=== PATIENT | female | born 1990 | race Caucasian/White ===

== ENCOUNTER 2016-03-23 20:51 | Outpatient (CLI) | payer OTHER, MEDICAID ==
[2016-03-23 21:28] LABS: APPEARANCE,URINE SLIGHTLY-CLOUDY; BILIRUBIN,URINE NEGATIVE (NEGATIVE); GLUCOSE, URINE NEGATIVE (NEGATIVE); KETONES,URINE NEGATIVE (NEGATIVE); LEUKOCYTE ESTERASE,URINE SMALL (NEGATIVE); NITRITE,URINE NEGATIVE (NEGATIVE); PROTEIN,URINE NEGATIVE (NEGATIVE); URINE SPECIFIC GRAVITY 1.019
[2016-03-23 21:45] LABS: URINE BARBITURATES SCREEN NEGATIVE; URINE METHADONE SCREEN NEGATIVE; URINE PHENCYCLIDINE SCREEN NEGATIVE
[2016-03-23] MEDS ORDERED: HYDROXYZINE PAMOATE 50 MG CAPSULE ONE (22:41)
--- NOTE | 2016-03-24 04:48 | L&D Discharge Summary ---
OB Discharge Summary Datetime Report Generated by CPN: 03/24/2016 04:45 DISCHARGE DIAGNOSIS Diagnosis/Symptoms: False Labor Diagnoses/Symptoms Other: Not in labor, pt educated on labor signs and contractions. Pt asked question about water breaking and active labor. RN educated pt on labor process. Gestation: 39.3 Number of Babies in Womb: 1 Parity: 1 DIET/ACTIVITY/RESTRICTIONS Diet: Regular Activity: Normal Activity TEACHING/INSTRUCTIONS/REFERRALS Instructions Given To: Patient Instructions Understood: Patient Verbalized Understanding; Support Person Verbalized Understanding Referrals: None Educational Materials- Other: labor signs care notes DISCHARGE INFORMATION Discharged AMA: No Discharge Date/Time: 03/23/2016 22:49 Discharged To: Home Discharge Provider Name: Dr. Bright Accompanied By: FOB Discharge Method: Ambulatory Condition: Stable FOLLOW UP INFORMATION Follow Up With: [facility] Follow Up On: As Scheduled Follow Up Phone Number: [facility] - Comments: Dr. Suero on unit and spoke with pt about pain during early labor. GENERAL INSTR-CALL PROVIDER IF: Contractions: Regular painful contractions every 5 minutes or less for one hour. Time your contractions from the beginning of one to the beginning of the next Pressure: Pressure in your vagina or lower abdomen that may feel like the baby is pushing down Gush of Fluid/Blood: Gush of fluid or blood from your vagina (it is normal to have spotting after vaginal exam or intercourse) Decreased Movement: Your baby is not moving as much as usual- 4 movements in 1 hour after drinking and resting on side
--- NOTE | 2016-03-24 04:48 | L&D Current Admission ---
Current Admit Datetime Report Generated by CPN: 03/24/2016 04:45 ADMISSION INFORMATION Chief Complaint: Contractions (03/23/2016 21:20:VIV Lundy
--- NOTE | 2016-03-24 04:48 | Antepartum Discharge Summary ---
Antepartum DC Datetime Report Generated by CPN: 03/24/2016 04:45 DIET/ACTIVITY/RESTRICTIONS Diet: Regular (03/23/2016 22:49:Mikayla Lattibeaudeir, RN) Activity: Normal Activity (03/23/2016 22:49:Mikayla Lattibeaudeir, RN) TEACHING/INSTRUCTIONS/REFERRALS Instructions Given To: Patient (03/23/2016 22:49:Mikayla Lattibeaudeir, RN) Instructions Understood: Patient Verbalized Understanding; Support Person Verbalized Understanding (03/23/2016 22:49:Mikayla Carr RN) Referrals: None (03/23/2016 22:49:Mikayla Carr RN) Educational Materials- Other: labor signs care notes (03/23/2016 22:49:Mikayla Carr RN) DISCHARGE INFORMATION Discharged AMA: No (03/23/2016 22:49:Mikayla Carr RN) Discharge Date/Time: 03/23/2016 22:49 (03/23/2016 22:49:Mikayla Carr RN) Discharged To: Home (03/23/2016 22:49:Mikayla Carr RN) Discharge Provider Name: Dr. Bright (03/23/2016 22:49:Mikayla Carr RN) Accompanied By: ANA (03/23/2016 22:49:Mikayla Carr RN) Discharge Method: Ambulatory (03/23/2016 22:49:Mikayla Carr RN) Condition: Stable (03/23/2016 22:49:Mikayla Carr RN) FOLLOW UP INFORMATION Follow Up With: [facility] (03/23/2016 22:49:Mikayla Carr RN) Follow Up On: As Scheduled (03/23/2016 22:49:Mikayla Carr RN) Follow Up Phone Number: [facility] - (03/23/2016 22:49:Mikayla Carr RN)
--- NOTE | 2016-03-24 04:48 | L&D Flow Sheet ---
LD Flowsheet Datetime Report Generated by CPN: 03/24/2016 04:45 Datetime: 03/23/2016 22:49 Additional Nursing Comments: Pt stable, ambulatory, leaving unit accompanied by FOB (Dahiana Rossana, RN) Datetime: 03/23/2016 22:45 Teaching Instructional Method: Verbal; Written; Patient Instructed; Family/Support Person Instructed; Verbalized Understanding (Dahiana Tracy RN) Plan of Care: Plan of Care Discussed (Dahiana Tracy RN) Teaching Comments: Term labor care notes given and explained, all pt and FOB questions answered. Pt expressed frustration, states she is frustrated she is not in labor and asked about induction options. Pt will follow up as scheduled in office on Monday and discuss induction options as appropriate. Pt reassured by RN and seems to be in good spirits upon discharge. (Dahiana Tracy RN) Datetime: 03/23/2016 22:44 Medications Medication Comments: vistaril 50 mg PO (Dahiana Rossana, RN) Datetime: 03/23/2016 22:38 Uterine Activity Monitor Mode: External (Dahiana Rossana, RN) Frequency (min): 8-9 (Dahiana Rossana, RN) Quality: Mild (Dahiana Rossana, RN) Duration (sec): 90-270 (Dahiana Rossana, RN) Resting Tone (Palpate): Relaxed (Dahiana Rossana, RN) Assessment A Monitor Mode: External US (Dahiana Rossana, RN) FHR Baseline Rate : 135 (Dahiana Rossana, RN) Variability: Moderate 6-25 bpm (Dahiana Rossana, RN) Accelerations: 15X15 (Dahiana Rossana, RN) Decelerations: None (Dahiana Rossana, RN) Datetime: 03/23/2016 22:33 Communication Communication: Provider Orders Received; Report Given to @ Dr Bright (Dahiana Tracy RN) Communication Comments: Report to Dr Bright to include pt presence, hx, SVE and repeat SVE, ctx, urine results, pain. Orders received for pt d/c and vistaril 50 mg PO administration (Dahiana Tracy RN) Datetime: 03/23/2016 22:32 Vaginal Exam Dilatation (cm): 3.5 (Dahiana Rossana, RN) Effacement (%): 50 (Dahiana Rossana, RN) Station: -3 (Dahiana Rossana, RN) Exam by: K Rossana RN (Dahiana Rossana, RN) Vaginal Exam Comments: No change (Dahiana Rossana, RN) Datetime: 03/23/2016 22:15 Uterine Activity Monitor Mode: External (Dahiana Rossana, RN) Frequency (min): 6-9 (Dahiana Rossana, RN) Quality: Mild (Dahiana Rossana, RN) Duration (sec): 100-180 (Dahiana Rossana, RN) Resting Tone (Palpate): Relaxed (Dahiana Rossana, RN) Assessment A Monitor Mode: External US (Dahiana Rsosana, RN) FHR Baseline Rate : 135 (Dahiana Rossana, RN) Variability: Moderate 6-25 bpm (Dahiana Rossana, RN) Accelerations: 15X15 (Dahiana Rossana, RN) Decelerations: None (Dahiana Rossana, RN) Datetime: 03/23/2016 21:45 Uterine Activity Monitor Mode: External (Dahiana Rossana, RN) Frequency (min): 8-9 (Dahiana Rossana, RN) Quality: Mild (Dahiana Rossana, RN) Duration (sec): 70-180 (Dahiana Rossnaa, RN) Resting Tone (Palpate): Relaxed (Dahiana Rossana, RN) Assessment A Monitor Mode: External US (Dahiana Rossana, RN) FHR Baseline Rate : 135 (Dahiana Rossana, RN) Variability: Moderate 6-25 bpm (Dahiana Rossana, RN) Accelerations: 10X10 (Dahiana Rossana, RN) Decelerations: None (Dahiana Rossana, RN) Datetime: 03/23/2016 21:38 Quality: Mild/Moderate (Dahiana Rossana, RN) Monitor Interventions for FHR: Ultrasound Adjusted (Dahiana Rossana, RN) I/O Interventions: Popsicle (Dahiana Rossana, RN) Communication Communication: RN at Bedside (Dahiana Rossana, RN) Datetime: 03/23/2016 21:28 Quality: Mild (Dahiana Rossana, RN) Patient Care Patient Position/Activity: Left Lateral (Dahiana Rossana, RN) Datetime: 03/23/2016 21:20 Frequency (min): 1-3 per pt (Dahiana Tracy RN) Quality: Mild (Dahiana Tracy, RN) Pain Pain Scale: 5 (Dahiana Tracy RN) Pain Presence: Intermittent (Dahiana Tracy RN) Pain Type: Contraction (Dahiana Tracy RN) Pain Location: Abdomen; Back (Dahiana Tracy RN) Pain Goal: 2 (Dahiana Tracy RN) Pain Relief Measures: Comfort Measures (Dahiana Tracy RN) Pain Coping: Talking Through Contractions (Dahiana Tracy RN) Membrane Status: Intact (Annotations: Pt stated she has normal discharge, but doesnt think her water is broken) (Dahiana Tracy RN) Vaginal Bleeding: None (Dahiana Rossana, RN) Maternal Assessment Level of Consciousness: Fully Conscious (Dahiana Rossana, RN) DTR's/Clonus: DTRs 2+; No Clonus (Dahiana Rossana, RN) Headache: Denies (Dahiana Rossana, RN) Breath Sounds, Left: Clear and Equal (Dahiana Rossana, RN) Breath Sounds, Right: Clear and Equal (Dahiana Rossana, RN) Nausea/Vomiting: Denies (Dahiana Rossana, RN) RUQ Epigastric Pain: Denies (Dahiana Rossana, RN) Patient Care Patient Position/Activity: Right Tilt (Dahiana Rossana, RN) Comfort Measures: Family Support (Dahiana Rossana, RN) Teaching Instructional Method: Verbal; Patient Instructed; Family/Support Person Instructed; Verbalized Understanding (Dahiana Wrightsel, RN) Plan of Care: Plan of Care Discussed (Dahiana Wrightsel, RN) Unit Routine: [place] to Room; Call Gibbs (Dahiana Wrightsel, RN) LaborFlag: OB Triage (QS system process) Datetime: 03/23/2016 21:16 Contraction Comments: toco reading pt movement per patient (Dahiana Wrightsel, RN) Datetime: 03/23/2016 21:14 Vital Signs NBP Sys/Sandy/Mean (mmHg): 133 (QS system process) : 75 (QS system process) : 97 (QS system process) Pulse: 105 (QS system process) Respirations: 16 (Dahiana Rossana, RN) Temperature (F): 98.1 (Dahiana Rossana, RN) Temperature (C): 36.7 (QS system process) Temperature Route: Oral (Dahiana Rossana, RN) LaborFlag: OB Triage (QS system process) Datetime: 03/23/2016 21:11 Patient Care Patient Position/Activity: Right Tilt (Dahiana Rossana, RN) I/O Interventions: Ice Chips Given; Clear Liquids Given (Dahiana Rossana, RN) Datetime: 03/23/2016 21:10 Vaginal Exam Dilatation (cm): 3.5 (Annotations: 450/-3 per H Taras CNM in office today ) (Dahiana Tracy, RN) Effacement (%): 50 (Dahiana Rossana, RN) Station: -3 (Dahiana Rossana, RN) Exam by: K Rossana RN (Dahiana Wrightsel, RN) Figueroa's Score Dilatation (cm): 3-4 cms (Dahiana Rossana, RN) Effacement: 40-50_ effaced (Dahiana Tracy RN) Station: minus 3 (Dahiana Tracy RN) Consistency: Medium (Dahiana Tracy RN) Position: Posterior (Dahiana Tracy RN) Total Figueroa's Score: 4 (QS system process) : 0-4 = Unfavorable cervix (QS system process)
--- NOTE | 2016-03-24 04:48 | L&D Admission Assessment ---
LD ADM ASMT Datetime Report Generated by CPN: 03/24/2016 04:45 PATIENT ASSESSMENT Assessment Type: Triage (03/23/2016 21:20:Dahiana Rossana, RN) WEIGHT Weight (lb): 178 (03/23/2016 21:06:QS system process) Weight (kg): 80.9 (03/23/2016 21:06:QS system process) BMI: 31.5 (03/23/2016 21:06:QS system process) PAIN Pain Scale: 5 (03/23/2016 21:20:Dahiana Rossana, RN) Pain Presence: Intermittent (03/23/2016 21:20:Dahiana Rossana, RN) Pain Type: Contraction (03/23/2016 21:20:Dahiana Rossana, RN) Pain Location: Abdomen; Back (03/23/2016 21:20:Dahiana Rossana, RN) Pain Goal: 2 (03/23/2016 21:20:Dahiana Rossana, RN) Pain Related to Contraction: Yes (03/23/2016 21:20:Dahiana Rossana, RN) CONTRACTIONS Frequency (min): 8-9 (03/23/2016 22:38:Dahiana Rossana, RN) Frequency (min): 6-9 (03/23/2016 22:15:Dahiana Rossana, RN) Frequency (min): 8-9 (03/23/2016 21:45:Dahiana Rossana, RN) Frequency (min): 1-3 per pt (03/23/2016 21:20:Dahiana Rossana, RN) Duration (sec): 90-270 (03/23/2016 22:38:Dahiana Rossana, RN) Duration (sec): 100-180 (03/23/2016 22:15:Dahiana Rossana, RN) Duration (sec): 70-180 (03/23/2016 21:45:Dahiana Rossana, RN) Quality: Mild (03/23/2016 22:38:Dahiana Rossana, RN) Quality: Mild (03/23/2016 22:15:Dahiana Rossana, RN) Quality: Mild (03/23/2016 21:45:Dahiana Rossana, RN) Quality: Mild/Moderate (03/23/2016 21:38:Dahiana Rossana, RN) Quality: Mild (03/23/2016 21:28:Dahiana Rossana, RN) Quality: Mild (03/23/2016 21:20:Dahiana Rossana, RN) Resting Tone [place]: Relaxed (03/23/2016 22:38:Dahiana Rossana, RN) Resting Tone [place]: Relaxed (03/23/2016 22:15:Dahiana Rossana, RN) Resting Tone [place]: Relaxed (03/23/2016 21:45:Dahiana Rossana, RN) Contraction Comments: toco reading pt movement per patient (03/23/2016 21:16:Dahiana Rossana, RN) VAGINAL EXAM Dilatation (cm): 3.5 (03/23/2016 22:32:Dahiana Rossana RN) Dilatation (cm): 3.5 (Annotations: 4/50/-3 per H Taras CNM in office today ) (03/23/2016 21:10:Dahiana Tracy RN) Effacement (%): 50 (03/23/2016 22:32:Dahiana Tracy RN) Effacement (%): 50 (03/23/2016 21:10:Dahiana Tracy RN) Station: -3 (03/23/2016 22:32:Dahiana Tracy RN) Station: -3 (03/23/2016 21:10:Dahiana Tracy RN) Membranes Status: Intact (Annotations: Pt stated she has normal discharge, but doesnt think her water is broken) (03/23/2016 21:20:Dahiana Tracy RN) GOFF'S SCORE Goff's Score Dilatation (cm): 3-4 cms (03/23/2016 21:10:Dahiana Tracy RN) Goff's Score Effacement (%): 40-50_ effaced (03/23/2016 21:10:Dahiana Tracy RN) Goff's Score Station: minus 3 (03/23/2016 21:10:Dahiana Tracy RN) Goff's Score Consistency: Medium (03/23/2016 21:10:Dahiana Tracy RN) Goff's Score Position: Posterior (03/23/2016 21:10:Dahiana Tracy RN) Total Goff's Score: 4 (03/23/2016 21:10:QS system process) Goff's Score Text: 0-4 = Unfavorable cervix (03/23/2016 21:10:QS system process) NEURO Level of Consciousness: Fully Conscious (03/23/2016 21:20:Dahiana Rossana, RN) DTR's/Clonus: DTRs 2+; No Clonus (03/23/2016 21:20:Dahiana Rosasna, RN) Headache: Denies (03/23/2016 21:20:Dahiana Rossana, RN) Dizziness: No (03/23/2016 21:20:Dahiana Rossana, RN) Blurred Vision: No (03/23/2016 21:20:Dahiana Rossana, RN) Extremity Numbness/Tingling : None (03/23/2016 21:20:Dahiana Rossana, RN) Extremity Movement: Full Range of Motion (03/23/2016 21:20:Dahiana Rossana, RN) CARDIOVASCULAR Heart Rhythm: Regular (03/23/2016 21:20:Dahiana Rossana, RN) Nailbeds: [place] (03/23/2016 21:20:Dahiana Rossana, RN) Capillary Refill: Less than 3 Seconds (03/23/2016 21:20:Dahiana Tracy RN) Lower Extremities Edema: Bilateral Lower Extremities (03/23/2016 21:20:Dahiana Tracy RN) Lower Extremities Edema Degree: 2+ (03/23/2016 21:20:Dahiana Tracy RN) Upper Extremities Edema: None (03/23/2016 21:20:Dahiana Tracy RN) Upper Extremities Edema Degree: None (03/23/2016 21:20:Dahiana Tracy RN) Facial Edema: None (03/23/2016 21:20:Dahiana Tracy RN) Bossman's Sign Left Leg: Negative (03/23/2016 21:20:Dahiana Tracy RN) Bossman's Sign Right Leg: Negative (03/23/2016 21:20:Dahiana Tracy RN) DVT RISK ASSESSMENT DVT Risk Age: Age less than 41 years (03/23/2016 21:20:Dahiana Tracy RN) DVT Risk BMI: BMI<31 (03/23/2016 21:20:Dahiana Tracy RN) DVT Risk Surgery: None Applicable (03/23/2016 21:20:Dahiana Tracy RN) DVT Risk Other: Women Only- or (<1 month) (03/23/2016 21:20:Dahiana Tracy RN) DVT Risk Total: 1 (03/23/2016 21:20:QS system process) DVT Risk Text: Low Risk (<10%) No specific measures, early ambulation (03/23/2016 21:20:QS system process) RESPIRATORY Respiratory Effort: Unlabored; Regular Rhythm; Equal Expansion (03/23/2016 21:20:Dahiana Rossana, RN) Breath Sounds, Left: Clear and Equal (03/23/2016 21:20:Dahiana Rossana, RN) Breath Sounds, Right: Clear and Equal (03/23/2016 21:20:Dahiana Rossana, RN) Cough Productivity: None (03/23/2016 21:20:Dahiana Rossana, RN) GASTROINTESTINAL Nausea/Vomiting: Denies (03/23/2016 21:20:Dahiana Rossana, RN) Bowel Sounds: Normoactive; All Quadrants (03/23/2016 21:20:Dahiana Rossana, RN) RUQ Epigastric Pain: Denies (03/23/2016 21:20:Dahiana Rossana, RN) GENITOURINARY Bladder: Nondistended (03/23/2016 21:20:Dahiana Rossana, RN) Frequency of Urination: No (03/23/2016 21:20:Dahiana Rossana, RN) Urination Burning: No (03/23/2016 21:20:Dahiana Rossana, RN) CVA Tenderness: No (03/23/2016 21:20:Dahiana Rossana, RN) Vaginal Bleeding: None (03/23/2016 21:20:Dahiana Rossana, RN) Vaginal Discharge Color: N/A (03/23/2016 21:20:Dahiana Rossana, RN) INTEGUMENTARY Skin Color: Normal for Race (03/23/2016 21:20:Dahiana Rossana, RN) Skin Temperature: Warm (03/23/2016 21:20:Dahiana Rossana, RN) Skin Moisture: Dry (03/23/2016 21:20:Dahiana Rossana, RN) JOAO SKIN ASSESSMENT Joao Scale Sensory Perception: No Impairment- Responds to verbal commands. Has no sensory deficit which would limit ability to feel or voice pain or discomfort (03/23/2016 21:20:Dahiana Tracy RN) Joao Scale Moisture: Rarely Moist- Skin is usually dry. Linen only requires changing at routine intervals (03/23/2016 21:20:Dahiana Tracy RN) Joao Scale Activity: Walks Frequently- Walks outside the room at least twice a day and inside room at least every 2 hours during the day. (03/23/2016 21:20:Dahiana Tracy RN) Joao Scale Mobility: No Limitations- Makes major and frequent changes in position without assistance (03/23/2016 21:20:Dahiana Tracy RN) Joao Scale Nutrition: Excellent- Eats most of every meal. Never refuses a meal. Usually eats a total of 4 or more servings of meat and dairy products. Occasionally eats between meals. Does not require supplementation (03/23/2016 21:20:Dahiana Tracy RN) Joao Scale Friction and Shear: No Apparent Problem- Moves in bed and in chair independently and has sufficient muscle strength to lift up completely during move. Maintains good position in bed or chair at all times (03/23/2016 21:20:Dahiana Tracy RN) Joao Scale Total: 23 (03/23/2016 21:20:QS system process) Joao Scale Risk: No Risk of Pressure Ulcer Noted at this Time (03/23/2016 21:20:QS system process) SUPPORT Family Support: Significant Other supportive, at bedside frequently (03/23/2016 21:20:Dahiana Rossana, RN) Emotional State: Calm/Relaxed (03/23/2016 21:20:Dahiana Rossana, RN) SAFETY Call Gibbs Within Reach: Yes (03/23/2016 21:20:Dahiana Rossana, RN) Side Rails Up: Yes (03/23/2016 21:20:Dahiana Rossana, RN) Bed Wheels Locked: Yes (03/23/2016 21:20:Dahiana Rossana, RN) Arm Bands Present: Yes (03/23/2016 21:20:Dahiana Rossana, RN) FALL SCREEN Fall Risk History of Falling: (0) No (03/23/2016 21:20:Dahiana Rossana, RN) Fall Risk Secondary Diagnosis: (0) No (03/23/2016 21:20:Dahiana Tracy RN) Fall Risk Ambulatory Aid: (0) None/Bedrest/Wheelchair/Nurse Assist (03/23/2016 21:20:Dahiana Tracy RN) Fall Risk IV Therapy: (0) No (03/23/2016 21:20:Dahiana Tracy RN) Fall Risk Gait: (0) Normal/Bedrest/Immobile (03/23/2016 21:20:Dahiana Tracy RN) Fall Risk Mental Status: (0) Oriented to Own Ability (03/23/2016 21:20:Dahiana Tracy RN) Fall Risk Score: 0 (03/23/2016 21:20:QS system process) Fall Risk Score Definition: No Risk: No action required (03/23/2016 21:20:QS system process) RECENT TRAVEL/INFECTIOUS DISEASE Recent Exp Communicable Disease: No (03/23/2016 21:20:Dahiana Tracy RN) Cough or Fever: No (03/23/2016 21:20:Dahiana Tracy RN) Foreign Travel Past 10 Days: No (03/23/2016 21:20:Dahiana Tracy RN) Open Wounds or Sores: No (03/23/2016 21:20:Dahiana Tracy RN) Prior Antibiotic Resistance Tx: No (03/23/2016 21:20:Dahiana Tracy RN) Cultures Obtained: Not Applicable (03/23/2016 21:20:Dahiana Tracy RN) Isolation Initiated: No (03/23/2016 21:20:Dahiana Tracy RN) Pt/Family Education: Not Applicable (03/23/2016 21:20:Dahiana Tracy RN) BABY A FHR Baseline Rate (bpm) Baby A: 135 (03/23/2016 22:38:Dahiana Tracy RN) FHR Baseline Rate (bpm) Baby A: 135 (03/23/2016 22:15:Dahiana Tracy RN) FHR Baseline Rate (bpm) Baby A: 135 (03/23/2016 21:45:Dahiana Tracy RN) Variability Baby A: Moderate 6-25 bpm (03/23/2016 22:38:Dahiana Tracy RN) Variability Baby A: Moderate 6-25 bpm (03/23/2016 22:15:Dahiana Tracy RN) Variability Baby A: Moderate 6-25 bpm (03/23/2016 21:45:Dahiana Tracy RN) Accelerations Baby A: 15X15 (03/23/2016 22:38:Dahiana Tracy RN) Accelerations Baby A: 15X15 (03/23/2016 22:15:Dahiana Tracy RN) Accelerations Baby A: 10X10 (03/23/2016 21:45:Dahiana Tracy RN) Decelerations Baby A: None (03/23/2016 22:38:Dahiana Tracy RN) Decelerations Baby A: None (03/23/2016 22:15:Dahiana Tracy RN) Decelerations Baby A: None (03/23/2016 21:45:Dahiana Tracy RN)
--- NOTE | 2016-03-24 04:48 | L&D General Admission ---
General Admit Datetime Report Generated by CPN: 03/24/2016 04:45 INFORMATION Baby, Number in Womb: 1 (03/23/2016 22:49:Mikayla Lattibeaudeir, RN) CARE Height (in): 63 (03/23/2016 21:06:QS system process) ALLERGIES Medication Allergies: No Known Allergies (03/23/2016) (03/23/2016 21:06:QS system process)
--- NOTE | 2016-03-28 10:09 | Non Stress Test Report ---
Non Stress Test Datetime Report Generated by CPN: 03/28/2016 10:09 Test Number: 5 Indication for Study: Ordered by Provider Indication for Study (NST) Other: LC Monitor Explained: Monitor Explained; Test Explained; Patient Verbalized Understanding Time on Monitor: 03/23/2016 21:11 Time off Monitor: 03/23/2016 22:38 NST Interventions: PO Hydration; Reposition Patient Physician Notified NST: Dr. Bright Movement : Present Contraction Frequency : 7-10 FHR Baseline : 135 Accelerations : 15X15 Decelerations : None Variability : Moderate 6-25bpm NST Review: Meets Criteria for Reactive NST NST Review and Verified By : Lalo Carr RN NST Results: Reactive NST Comments: see flowsheet for urine results and VS Report Trigger: Send Report
== END 2016-03-23 22:49 | disposition home or self-care (01) ==
LOC: LC 20:51
PROVIDERS: ATTEND Obstetrics & Gynecology
PROC: 4A1HXCZ Monitoring of Products of Conception, Cardiac Rate, External Approach (ICD-10-PCS; principal; 2016-03-23)
DX: O47.1 False labor at or after 37 completed weeks of gestation (principal); Z3A.39 39 weeks gestation of pregnancy
CPT/HCPCS: 59025; 81005; G0479; 80307

== ENCOUNTER 2016-03-25 05:44 | Inpatient (IN) | payer OTHER, MEDICAID ==
--- NOTE | 2016-03-25 05:47 | Non Stress Test Report ---
Non Stress Test Datetime Report Generated by CPN: 03/25/2016 05:47 DEMOGRAPHIC Test Number: 5 Test Number: 2 EGA NST: 39.3 EGA NST: 38.0 EGA NST: 37.6 INDICATION Indication for Study: Ordered by Provider Indication for Study: Ordered by Provider Indication for Study: Ordered by Provider Indication for Study (NST) Other: LC Indication for Study (NST) Other: LC VITAL SIGNS Temperature - NST: 98.9 Temperature - NST: 98.9 Pulse - NST: 110 Pulse - NST: 110 RESP - NST: 16 RESP - NST: 16 NBPSYS NST: 125 NBPSYS NST: 125 NBPDIA NST: 87 NBPDIA NST: 78 MONITORING Monitor Explained: Monitor Explained; Test Explained; Patient Verbalized Understanding Monitor Explained: Monitor Explained; Test Explained; Patient Verbalized Understanding Monitor Explained: Monitor Explained; Test Explained; Patient Verbalized Understanding Time on Monitor: 03/23/2016 21:11 Time on Monitor: 03/13/2016 00:33 Time on Monitor: 03/12/2016 21:52 Time off Monitor: 03/23/2016 22:38 Time off Monitor: 03/13/2016 00:55 Time off Monitor: 03/12/2016 22:31 NST Duration: 87 NST Duration: 22 NST Duration: 39 NST INTERVENTIONS NST Interventions: PO Hydration; Reposition Patient NST Interventions: PO Hydration; Reposition Patient NST Interventions: PO Hydration; Reposition Patient Physician Notified NST: Dr. Bright Physician Notified NST: Physician Notified NST: Suero BABY A: [id number] BABY A Movement : Present Movement : Present Movement : Present Contraction Frequency : 7-10 Contraction Frequency : 8-10 Contraction Frequency : 8-10 FHR Baseline : 135 FHR Baseline : 125 FHR Baseline : 140 Accelerations : 15X15 Accelerations : 15X15 Accelerations : 15X15 Decelerations : None Decelerations : None Decelerations : None Variability : Moderate 6-25bpm Variability : Moderate 6-25bpm Variability : Moderate 6-25bpm NST Review: Meets Criteria for Reactive NST NST Review: Meets Criteria for Reactive NST NST Review: Meets Criteria for Reactive NST NST Review and Verified By : Lalo Carr RN NST Review and Verified By : Pauly Galdamez RN NST Review and Verified By : Pauly Galdamez RN NST Results: Reactive NST Results: Reactive NST Results: Reactive NST COMMENTS NST Comments: see flowsheet for urine results and VS NST REPORT Report Trigger: Send Report
[2016-03-25] MEDS ORDERED: RINGERS SOLUTION,LACTATED 1,000 ML IV PRN ×2 (05:53→06:36)
[2016-03-25 06:07] LABS: APPEARANCE,URINE TURBID; BILIRUBIN,URINE NEGATIVE (NEGATIVE); GLUCOSE, URINE 50 mg/dL (NEGATIVE); KETONES,URINE NEGATIVE (NEGATIVE); LEUKOCYTE ESTERASE,URINE TRACE (NEGATIVE); NITRITE,URINE NEGATIVE (NEGATIVE); PROTEIN,URINE 100 mg/dL (NEGATIVE); URINE SPECIFIC GRAVITY 1.005; UROBILINOGEN,URINE NEGATIVE mg/dL (<2.0)
--- NOTE | 2016-03-25 06:22 | L&D Current Admission ---
Current Admit Datetime Report Generated by CPN: 03/25/2016 06:00 ADMISSION INFORMATION Reason for Admission: Rupture of Membranes (03/25/2016 06:15:Dahiana Tracy RN) Chief Complaint: Suspected Rupture of Membranes (03/25/2016 06:15:Dahiana Tracy RN) Medications During : Ferrous Sulfate (Iron); Vitamin (03/25/2016 06:15:Dahiana Tracy RN) Method of Arrival: Wheelchair (03/25/2016 06:15:Dahiana Tracy RN) Reason for Induction: Not Applicable (03/25/2016 06:15:Dahiana Tracy RN) Records Available: Yes (03/25/2016 06:15:Dahiana Tracy RN) General Admission Information: Reviewed; Updated; Confirmed (03/25/2016 06:15:Dahiana Tracy RN) General Admission Reviewed By: Prakash Tracy RN (03/25/2016 06:15:Dahiana Tracy RN) BELONGINGS/ADVANCED DIRECTIVES Other Belongings: see [facility] belongings form (03/25/2016 06:15:Dahiana Tracy RN) Advance Direct for Healthcare: No, but Requests Information (03/25/2016 06:15:Dahiana Tracy RN) Durable Power of Spice Blender: No (03/25/2016 06:15:Dahiana Tracy RN) Living Will: No (03/25/2016 06:15:Dahiana Tracy RN) Organ Donor: Yes (03/25/2016 06:15:Dahiana Tracy RN) Pt Rights Information Given: Yes (03/25/2016 06:15:Dahiana Tracy RN) Pt Understands Pt Rights: No (03/25/2016 06:15:Dahiana Tracy RN) LEARNING ASSESSMENT Knowledge Level: Understands L_D Process; Understands Diagnosis (03/25/2016 06:15:Dahiana Tracy RN) Barriers to Learning: Emotional State; Pain (03/25/2016 06:15:Dahiana Tracy RN) Learning Readiness: Motivated (03/25/2016 06:15:Dahiana Tracy RN) Learns Best By: 1 to 1 Instruction (03/25/2016 06:15:Dahiana Tracy RN) Learning Needs: Labor and Delivery Process; Pain Management; Symptoms to Report; Treatment Plan; Medication; Diagnosis; Equipment (03/25/2016 06:15:Dahiana Tracy RN) DOMESTIC VIOLANCE SCREENING Dom Viol Threatened/Hurt: No (03/25/2016 06:15:Dahiana Tracy RN) Hx of Abuse/Neglect past 2yrs: No (03/25/2016 06:15:Dahiana Tracy RN) Feel Unsafe Going Home: No (03/25/2016 06:15:Dahiana Tracy RN) Addt'l Observ Indicating Abuse: No (03/25/2016 06:15:Dahiana Tracy RN) Reason Unable to Complete Screen: N/A, Screen Completed (03/25/2016 06:15:Dahiana Tracy RN) Considered Personal Harm/Suicide: No (03/25/2016 06:15:Dahiana Tracy RN) NUTRITIONAL/FUNCTIONAL SCREENING Problem with Appetite >5 Days: No (03/25/2016 06:15:Dahiana Tracy RN) Chew/Swallow Difficulties: No (03/25/2016 06:15:Dahiana Tracy RN) Inappropriate Wt Gain/Loss: No (03/25/2016 06:15:Dahiana Tracy RN) Presence Skin Breakdown/Ulcer: No (03/25/2016 06:15:Dahiana Tracy RN) Special Diet: No (03/25/2016 06:15:Dahiana Tracy RN) Pt Requests Membership Administrator Visit: No (03/25/2016 06:15:Dahiana Tracy RN) Hx of Any of the Following?: N/A (03/25/2016 06:15:Dahiana Tracy RN) New Diagnosis of: N/A (03/25/2016 06:15:Dahiana Tracy RN) Requires Assist w/Ambulation: No (03/25/2016 06:15:Dahiana Tracy RN) Uses Assist Device to Ambulate: No (03/25/2016 06:15:Dahiana Tracy RN) Pt Requires Help w/ADL's: No (03/25/2016 06:15:Dahiana Tracy RN)
--- NOTE | 2016-03-25 06:22 | L&D General Admission ---
General Admit Datetime Report Generated by CPN: 03/25/2016 06:00 INFORMATION Patient Age: 25 (03/09/2016 22:02:QS system process) EDC: 03/27/2016 00:00 (03/09/2016 22:04:Mikayla Carr RN) : 2 (03/09/2016 22:07:Rosamaria Coffman RN) Para: 1 (03/11/2016 14:34:Elida Gonzalez RN) Term: 1 (03/09/2016 22:04:Mikayla Carr RN) : 0 (03/09/2016 22:04:Mikayla Carr RN) Spontaneous Abortions: 0 (03/09/2016 22:04:Mikayla Carr RN) Induced Abortions: 0 (03/09/2016 22:04:Mikayla Carr RN) Livin (03/09/2016 22:04:Mikayla Carr RN) Cesareans: 0 (03/09/2016 22:04:Mikayla Carr RN) VBACs: 0 (03/09/2016 22:04:Mikayla Carr RN) Ectopic: 0 (03/09/2016 22:04:Mikayla Carr RN) Multiple Births: 0 (03/09/2016 22:04:Mikayla Carr RN) Baby, Number in Womb: 1 (03/23/2016 22:49:Mikayla Carr RN) CARE Primary Managed Care Nurse: [facility] (03/09/2016 22:07:Rosamaria Coffman RN) Adequate Care: Yes (03/09/2016 22:07:Rosamaria Coffman RN) Height (in): 75 (03/25/2016 05:58:QS system process) ALLERGIES Medication Allergy: No (03/09/2016 22:07:Rosamaria Coffman RN) Medication Allergies: No Known Allergies (03/23/2016) (03/23/2016 21:06:QS system process) Latex Allergy: No Latex Allergies (03/09/2016 22:07:Rosamaria Coffman RN) Food Allergies: NA (03/09/2016 22:07:Rosamaria Coffman RN) Environmental Allergies: NA (03/09/2016 22:07:Rosamaria Coffman RN) COMMUNICATION Primary Language: Swazi (03/09/2016 22:07:Rosamaria Coffman RN) Medical Tx Preferred Language: Swazi (03/09/2016 22:04:Mikayla Carr RN) Communication Barrier(s): None (03/09/2016 22:04:Mikayla Carr RN) DEMOGRAPHICS Address: [address] [place] [id number] (03/09/2016 22:02:QS system process) Zipcode: [address] (03/09/2016 22:02:QS system process) Home (03/09/2016 22:02:QS system process) SSN: [id number] (03/09/2016 22:02:QS system process) Next of Kin Name: PABLITO BURNHAM (03/11/2016 10:06:QS system process) Next of Kin (03/11/2016 10:06:QS system process) Next of Kin Relationship: SPO (03/11/2016 10:06:QS system process) Date of : 1990 (03/09/2016 22:02:QS system process) Marital Status: (03/09/2016 22:02:QS system process) Sex: Female (03/09/2016 22:02:QS system process) Race: (03/09/2016 22:02:QS system process) Ethnicity: Non- or (03/09/2016 22:02:QS system process) Mosque: None (03/09/2016 22:02:QS system process) DRUG AND ALCOHOL USE Alcohol: No (03/09/2016 22:07:Rosamaria Coffman RN) Cigarettes: Never Smoker. [id number] (03/09/2016 22:07:Rosamaria Coffman RN) Marijuana: No (03/09/2016 22:07:Rosamaria Coffman RN) Cocaine: No (03/09/2016 22:07:Rosamaria Coffman RN) Other Illicit Drugs: No (03/09/2016 22:07:Rosamaria Coffman RN) VACCINE HISTORY Influenza Vaccine: Yes (03/09/2016 22:07:Elida Gonzalez RN) Pneumococcal Vaccine: No (03/09/2016 22:07:Rosamaria Coffman RN) Tetanus Vaccine: No (03/09/2016 22:07:Rosamaria Coffman RN) Tdap Vaccine: No (03/09/2016 22:07:Rosamaria Coffman RN) Hepatitis B Vaccine: No (03/09/2016 22:07:Rosamaria Coffman RN) Sorting Supervisor: [facility] (03/09/2016 22:07:Rosamaria Coffman RN) Feeding Preference: Breast (03/09/2016 22:07:Rosamaria Coffman RN) Benefit of Breast Feed Discussed: Yes (03/09/2016 22:07:Rosamaria Coffman RN) Circumcision: N/A (03/09/2016 22:07:Rosamaria Coffman RN) Classes Attended: No (03/09/2016 22:07:Rosamaria Coffman RN) Tubal Ligation: No (03/09/2016 22:07:Rosamaria Coffman RN) Tubal Authorization Signed: N/A (03/09/2016 22:07:Rosamaria Coffman RN) Consent: N/A (03/09/2016 22:07:Rosamaria Coffman RN) Consent Signed: N/A (03/09/2016 22:07:Rosamaria Coffman RN) Pain Management Plans: Natural (03/09/2016 22:07:Rosamaria Coffman RN) Plans for Labor and Delivery: Plan (03/09/2016 22:07:Rosamaria Coffman RN) Support Person: Pablito Burnham (03/09/2016 22:07:Rosamaria Coffman RN) Support Person Relationship: (03/09/2016 22:07:Rosamaria Coffman RN) Cultural/Spritual Practice: No (03/09/2016 22:07:Rosamaria Coffman RN) Spir/Cult Dietary Needs: No (03/09/2016 22:07:Rosamaria Coffman RN) LIVING SITUATION/DISCHARGE PLAN Living Arrangements: House (03/09/2016 22:07:Rosamaria Coffman RN) Adequate Access to:: Electric; Heat; Refrigeration; Plumbing/Running water; Phone; Transportation (03/09/2016 22:07:Rosamaria Coffman RN) WIC Program: Yes (03/09/2016 22:07:Rosamaria Coffman RN) Discharge Archeologist Person: Pablito Burnham (03/09/2016 22:07:Rosamaria Coffamn RN) Person to Help after Discharge: Pablito Burnham (03/09/2016 22:07:Rosamaria Coffman RN) Currently Using Commun Resources: Yes (03/09/2016 22:07:Rosamaria Coffman RN) Specify Current Resource Used: Medicaid (03/09/2016 22:07:Rosamaria Coffman RN) Outside Agency/Social Media Assistant: Yes (03/09/2016 22:07:Rosamaria Coffman RN) Car Seat for Discharge: Yes (03/09/2016 22:07:Rosamaria Coffman RN) Adoption Requested: No (03/09/2016 22:07:Rosamaria Coffman RN) Pt Contact w/ Post : N/A (03/09/2016 22:07:Rosamaria Coffman RN) LABS Blood Type: B Positive (03/09/2016 22:07:Elida Gonzalez RN) Antibody Screen: neg (03/09/2016 22:07:Elida Gonzalez RN) Group Beta Strep: neg (03/09/2016 22:07:Elida Gonzalez RN) Gonorrhea: Negative (03/09/2016 22:07:Dahiana Tracy RN) Chlamydia: Negative (03/09/2016 22:07:Dahiana Tracy RN) RPR/VDRL: Nonreactive (03/09/2016 22:07:Elida Gonzalez RN) HIV Exposure Test: Negative (03/09/2016 22:07:Elida Gonzalez RN) HIV Results: non-reactive (03/09/2016 22:07:Cele Gardner RN) Hepatitis B: Negative (03/09/2016 22:07:Cele Gardner RN) Rubella: Immune (Annotations: Data stored by N on behalf of user) (03/09/2016 22:07:Cele Gardner RN) Varicella: Non Susceptible (03/09/2016 22:07:Cele Gardner RN) OB/PREVIOUS HISTORY Previous Procedures: Ultrasound (03/09/2016 22:07:Rosamaria Coffman RN) Current Procedures: Ultrasound; NST (03/09/2016 22:07:Rosamaria Coffman RN) History of Previous : No (03/09/2016 22:07:Rosamaria Coffman RN) History of Gestational Diabetes: No (03/09/2016 22:07:Rosamaria Coffman RN) History of PIH: No (03/09/2016 22:07:Rosamaria Coffman RN) History of Incompetent Cervix: No (03/09/2016 22:07:Rosamaria Coffman RN) History of Placenta Previa/Abrup: No (03/09/2016 22:07:Rosamaria Coffman RN) History of Macrosomia: No (03/09/2016 22:07:Rosamaria Coffman RN) History of IUGR: No (03/09/2016 22:07:Rosamaria Coffman RN) History of Hemorrhage: No (03/09/2016 22:07:Rosamaria Coffman RN) History of Loss/Stillborn: No (03/09/2016 22:07:Rosamaria Coffman RN) History of : No (03/09/2016 22:07:Rosamaria Coffman RN) History of D (Rh) Sensitization: No (03/09/2016 22:07:Rosamaria Coffman RN) History Recurrent Loss/Stillborn: No (03/09/2016 22:07:Rosamaria Coffman RN) History Depression/PP Depression: No (03/09/2016 22:07:Rosamaria Coffman RN) History of Uterine Anomaly/NINA: No (03/09/2016 22:07:Rosamaria Coffman RN) History of Infertility: No (03/09/2016 22:07:Rosamaria Coffman RN) History of ART Treatment: No (03/09/2016 22:07:Rosamaria Coffman RN) History of NINA: No (03/09/2016 22:07:Rosamaria Coffman RN) Comments Obstetrical History: G1: 2008 male 7 lb 14 oz G2: current (03/09/2016 22:07:Dahiana Tracy RN) MEDICAL HISTORY Med Hx Diabetes: No (03/09/2016 22:07:Rosamaria Coffman RN) Med Hx Hypertension: No (03/09/2016 22:07:Rosamaria Coffman RN) Med Hx Heart Disease: No (03/09/2016 22:07:Rosamaria Coffman RN) Med Hx Autoimmune Disorder: No (03/09/2016 22:07:Rosamaria Coffman RN) Med Hx Kidney Disease/UTI: No (03/09/2016 22:07:Rosamaria Coffman RN) Med Hx Neurologic/Epilepsy: No (03/09/2016 22:07:Rosamaria Coffman RN) Med Hx Psychiatric Disorders: No (03/09/2016 22:07:Rosamaria Coffman RN) Med Hx Hepatitis/Liver Disease: No (03/09/2016 22:07:Rosamaria Coffman RN) Med Hx Varicosities/Phlebitis: No (03/09/2016 22:07:Rosamraia Coffman RN) Med Hx Thyroid Dysfunction: No (03/09/2016 22:07:Rosamaria Coffman RN) Med Hx Trauma/Violence: No (03/09/2016 22:07:Rosamaria Coffman RN) Med Hx Blood Transfusion: No (03/09/2016 22:07:Rosamaria Coffman RN) Med Hx Pulmonary (Asthma,TB): No (03/09/2016 22:07:Rosamaria Coffman RN) Med Hx Breast: No (03/09/2016 22:07:Rosamaria Coffman RN) Med Hx FLIGHT KITCHEN MANAGER Surgery: No (03/09/2016 22:07:Rosamaria Coffman RN) Med Hx Hospitalization/Surgery: Yes (03/09/2016 22:07:Dahiana Tracy RN) Med Hx Anesthetic Complications: No (03/09/2016 22:07:Rosamaria Coffman RN) Med Hx Abnormal Pap Smear: Yes (03/09/2016 22:07:Dahiana Tracy RN) Other Medical Diseases: No (03/09/2016 22:07:Rosamaria Coffman RN) Med Hx Significant Family Hx: No (03/09/2016 22:07:Rosamaria Coffman RN) Details of Med/Surg Hx: hospitalization childbirth, hx abn pap? (03/09/2016 22:07:Dahiana Tracy RN) INFECTIOUS HISTORY Inf Hx Gonorrhea: No (03/09/2016 22:07:Rosamaria Coffman RN) Inf Hx Chlamydia: Yes (03/09/2016 22:07:Rosamaria Coffman RN) Inf Hx Syphilis: No (03/09/2016 22:07:Rosamaria Coffman RN) Inf Hx HIV/AIDS: No (03/09/2016 22:07:Rosamaria Coffman RN) Inf Hx Human Papilloma Virus: No (03/09/2016 22:07:Rosamaria Coffman RN) Inf Hx Pt/Partner Genital Herpes: No (03/09/2016 22:07:Rosamaria Coffman RN) Inf Hx Tuberculosis/Exposure: No (03/09/2016 22:07:Rosamaria Coffman RN) Inf Hx Hepatitis B,C: No (03/09/2016 22:07:Rosamaria Coffman RN) Inf Hx Rash or Viral Illness: No (03/09/2016 22:07:Rosamaria Coffman RN) Details of Infectious Hx: 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) and negative GAURI BV in G2 (03/09/2016 22:07:Dahiana Tracy RN) GENETIC HISTORY Gen Hx Age >=35 at SHARON: No (03/09/2016 22:07:Rosamaria Coffman RN) Gen Hx Thalassemia: No (03/09/2016 22:07:Rosamaria Coffman RN) Gen Hx Congenital Heart Defect: No (03/09/2016 22:07:Rosamaria Coffman RN) Gen Hx Neural Tube Defect: No (03/09/2016 22:07:Rosamaria Coffman RN) Gen Hx Down's Syndrome: No (03/09/2016 22:07:Rosamaria Coffman RN) Gen Hx Yobani-Sachs: No (03/09/2016 22:07:Rosamaria Coffman RN) Gen Hx Ghulam: No (03/09/2016 22:07:Rosamaria Coffman RN) Gen Hx Familial Dysautonomia: No (03/09/2016 22:07:Rosamaria Coffman RN) Gen Hx Sickle Cell Disease/Trait: No (03/09/2016 22:07:Rosamaria Coffman RN) Gen Hx Hemophilia/Blood Disorder: No (03/09/2016 22:07:Rosamaria Coffman RN) Gen Hx Muscular Dystrophy: No (03/09/2016 22:07:Rosamaria Coffman RN) Gen Hx Cystic Fibrosis: No (03/09/2016 22:07:Rosamaria Coffman RN) Gen Hx Huntingtons Chorea: No (03/09/2016 22:07:Rosamaria Coffman RN) Gen Hx Mental Retardation/Autism: No (03/09/2016 22:07:Rosamaria Coffman RN) Gen Hx Tested for Fragile X: No (03/09/2016 22:07:Rosamaria Coffman RN) Gen Hx Other Inher/Chromosomal: No (03/09/2016 22:07:Rosamaria oCffman RN) Gen Hx Maternal Metabolic DO: No (03/09/2016 22:07:Rosamaria Coffman RN) Gen Hx Pt Father or FOB Defect: No (03/09/2016 22:07:Rosamaria Coffman RN) Gen Hx Other Genetic History: No (03/09/2016 22:07:Rosamaria Coffman RN) Gen Hx Drugs/Meds since LMP: Yes (03/09/2016 22:07:Dahiana Tracy RN) Gen Hx Medications: , iron, abx for chlam treatment (03/09/2016 22:07:Dahiana Tracy RN)
[2016-03-25 06:36] LABS: HEMATOCRIT 33.4 % (36.0-47.0); HEMOGLOBIN 11.2 g/dL (12.0-15.5); HGB HCT DIFFERENCE 0.2; MEAN CORPUSCULAR HEMOGLOBIN 26.6 pg (27.0-33.4); MEAN CORPUSCULAR HGB CONC 33.5 g/dL (32.0-36.0); MEAN CORPUSCULAR VOLUME 79 fl (80-97); RED BLOOD COUNT 4.21 10^6/uL (3.72-5.28); RED CELL DISTRIBUTION WIDTH 18.2 % (11.5-14.0); WHITE BLOOD COUNT 11.3 10^3/uL (4.0-10.5)
[2016-03-25] MEDS ORDERED: PENICILLIN G-K 5 MILLION UNIT VIAL IV ONE ×2 (06:38)
[2016-03-25 06:39] LABS: URINE BARBITURATES SCREEN NEGATIVE; URINE METHADONE SCREEN NEGATIVE; URINE PHENCYCLIDINE SCREEN NEGATIVE
[2016-03-25] MEDS ORDERED: BETAMET ACET/BETAMET NA INJ 6 MG/1 ML IM SCH (06:45)
[2016-03-25] MEDS ORDERED: BETAMET ACET/BETAMET NA INJ 6 MG/1 ML IM ONE (07:00)
[2016-03-25] MEDS ORDERED: DEXTROSE 5%-LACTATED RINGERS 250 ML IV ONE (07:00)
[2016-03-25 07:05] LABS: BAND NEUTROPHILS % (MANUAL) 3 % (3-5); BASOPHILS % (MANUAL) 1 % (0-2); EOSINOPHILS % (MANUAL) 2 % (0-6); LYMPHOCYTES % (MANUAL) 21 % (13-45); TOTAL CELLS COUNTED 100
[2016-03-25 07:06] LABS: ANISOCYTOSIS 1+; POLYCHROMASIA SLIGHT; TOXIC GRANULATION 1+
--- NOTE | 2016-03-25 08:01 | L&D Flow Sheet ---
LD Flowsheet Datetime Report Generated by CPN: 03/25/2016 08:00 Datetime: 03/25/2016 07:54 Patient Position/Activity: Birthing Ball (Marita Magaña, RN) Datetime: 03/25/2016 07:37 Monitor Interventions for UA: Lane Adjusted (Marita Magaña, RN) Datetime: 03/25/2016 07:36 Patient Position/Activity: Left Tilt (Marita Magaña RN) Datetime: 03/25/2016 07:30 Monitor Mode: External (Marita Magaña RN) Frequency (min): 3-8 (Marita Magaña RN) Quality: Moderate (Marita Magaña RN) Duration (sec): 50-120 (Marita Magaña RN) Duration Criteria: Less than Two 120 Second Contractions (Marita Magaña RN) Pattern: Normal: <= 5 Contractions in 10 Minutes (Marita Magaña RN) Resting Tone (Palpate): Relaxed (Marita Magaña RN) Monitor Mode: External US (Marita Magaña RN) FHR Baseline Rate : 135 (Marita Magaña RN) Variability: Moderate 6-25 bpm (Marita Magaña RN) Accelerations: None (Marita Magaña RN) Decelerations: None (Marita Magaña RN) Pain Scale: 4 (Marita Magaña RN) Pain Presence: Intermittent (Marita Magaña RN) Pain Type: Contraction (Marita Magaña RN) Pain Location: Abdomen (Marita Magaña RN) Pain Relief Measures: Comfort Measures (Marita Magaña RN) Pain Coping: Talking Through Contractions (Marita Magaña RN) LaborFlag: Labor (QS system process) Datetime: 03/25/2016 07:28 Level of Consciousness: Fully Conscious (Marita Magaña, RN) DTR's/Clonus: DTRs 2+; No Clonus (Marita Magaña, RN) Headache: Denies (Marita Magaña, RN) Breath Sounds, Left: Clear and Equal (Marita Magaña, RN) Breath Sounds, Right: Clear and Equal (Marita Magaña, RN) Nausea/Vomiting: Denies (Marita Magaña, RN) RUQ Epigastric Pain: Denies (Marita Magaña, RN) Datetime: 03/25/2016 07:21 I/O Interventions: Up to BR (Marita Magaña, RN) Datetime: 03/25/2016 07:15 Communication Comments: bedside report to A Magaña RN, care relinquished (Dahiana Rossana, RN) Datetime: 03/25/2016 07:02 Comments: excessive audible and visual movement (Dahiana Rossana, RN) Datetime: 03/25/2016 07:01 IV/Blood Work: IV Bolus Started (Dahiana Rossana, RN) Patient Care Comments: d5LR bolus started per orders from Dr Pio (Dahiana Rossana, RN) Datetime: 03/25/2016 07:00 Monitor Mode: External (Dahiana Rossana, RN) Frequency (min): 2-6 (Dahiana Rossana, RN) Quality: Moderate to Strong (Dahiana Rossana, RN) Duration (sec): 60-180 (Dahiana Rossana, RN) Resting Tone (Palpate): Relaxed (Dahiana Rossana, RN) Monitor Mode: External US (Dahiana Rossana, RN) FHR Baseline Rate : 135 (Dahiana Rossana, RN) Variability: Moderate 6-25 bpm (Dahiana Rossana, RN) Accelerations: None (Dahiana Rossana, RN) Decelerations: None (Dahiana Rossana, RN) Datetime: 03/25/2016 06:38 I/O Interventions: Popsicle (Dahiana Rossana, RN) Datetime: 03/25/2016 06:37 Comments: acoustic stimulation (Dahiana Rossana, RN) IV/Blood Work: IV Bolus Given ml @ 500 (Dahiana Rossana, RN) Patient Position/Activity: Right Lateral (Dahiana Rossana, RN) Provider Reviewed Strip: Yes (Dahiana Rossana, RN) Communication: RN Reviewed Strip (Dahiana Rossana, RN) Datetime: 03/25/2016 06:30 Monitor Mode: External (Dahiana Rossana, RN) Frequency (min): 4-7 (Dahiana Rossana, RN) Quality: Moderate to Strong (Dahiana Rossana, RN) Duration (sec): 60-180 (Dahiana Rossana, RN) Resting Tone (Palpate): Relaxed (Dahiana Rossana, RN) Monitor Mode: External US (Dahiana Rossana, RN) FHR Baseline Rate : 135 (Dahiana Rossana, RN) Variability: Moderate 6-25 bpm (Dahiana Rossana, RN) Accelerations: None (Dahiana Rossana, RN) Decelerations: None (Dahiana Rossana, RN) Datetime: 03/25/2016 06:22 IV/Blood Work: IV Started; IV Bolus Started (Dahiana Tracy RN) Datetime: 03/25/2016 06:15 Frequency (min): q 5 minutes per pt (Dahiana Tracy RN) Quality: Moderate to Strong (Dahiana Tracy RN) Membrane Status: Ruptured (Dahiana Tracy RN) Membranes Ruptured Date/Time: 03/25/2016 05:25 (Dahiana Tracy RN) Membranes Rupture Method: Spontaneous (Dahiana Tracy RN) Amniotic Fluid Color: Clear (Dahiana Tracy RN) Amniotic Fluid Amount: Large (Dahiana Tracy RN) Amniotic Fluid Odor: Normal (Dahiana Tracy RN) Vaginal Bleeding: None (Dahiana Tracy RN) Level of Consciousness: Fully Conscious (Dahiana Tracy RN) DTR's/Clonus: DTRs 2+; No Clonus (Dahiana Tracy RN) Headache: Denies (Dahiana Tracy RN) Breath Sounds, Left: Clear and Equal (Dahiana Tracy RN) Breath Sounds, Right: Clear and Equal (Dahiana Tracy RN) Nausea/Vomiting: Denies (Dahiana Tracy RN) RUQ Epigastric Pain: Denies (Dahiana Tracy RN) Procedures: Labs Drawn (Dahiana Tracy RN) Patient Position/Activity: Left Lateral (Dahiana Tracy RN) Comfort Measures: Breathing/Relaxation; Family Support (Dahiana Tracy RN) Hygiene: Underpad Changed; Peripad Changed (Dahiana Tracy RN) Instructional Method: Verbal; Patient Instructed; Family/Support Person Instructed; Verbalized Understanding (Dahiana Tracy RN) Plan of Care: Plan of Care Discussed; Vaginal Delivery (Dahiana Tracy RN) Datetime: 03/25/2016 06:09 NBP Sys/Sandy/Mean (mmHg): 121 (QS system process) : 71 (QS system process) : 89 (QS system process) Pulse: 85 (QS system process) Respirations: 15 (Dahiana Tracy RN) Temperature (F): 98.3 (Dahiana Tracy RN) Temperature (C): 36.8 (QS system process) Temperature Route: Oral (Dahiana Tracy RN) LaborFlag: Labor (QS system process) Datetime: 03/25/2016 06:05 Procedures: Consents Signed (Dahiana Tracy RN) Datetime: 03/25/2016 06:02 Stage of : Labor (Dahiana Tracy, RN) Datetime: 03/25/2016 06:00 Dilatation (cm): 5.0 (Dahiana Tracy RN) Effacement (%): 60 (Dahiana Tracy RN) Station: -2 (Dahiana Tracy RN) Exam by: Prakash Tracy RN (Dahiana Tracy RN) Membrane Status: Ruptured (Dahiana Tracy RN) Membranes Ruptured Date/Time: 03/25/2016 05:25 (Dahiana Tracy RN) Membranes Rupture Method: Spontaneous (Dahiana Tracy RN) Amniotic Fluid Color: Clear (Dahiana Tracy RN) Amniotic Fluid Amount: Large (Dahiana Tracy RN) Amniotic Fluid Odor: Normal (Dahiana Tracy RN) Datetime: 03/25/2016 05:55 Communication Comments: Dr Suero on unit, report to include pt grossly ruptured, admission status. (Dahiana Tracy RN)
--- NOTE | 2016-03-25 11:20 | L&D Progress Notes ---
PROGRESS NOTES Datetime Report Generated by CPN: 03/25/2016 11:20 PROGRESS NOTE Impression: Normal Progression of Labor Procedures: Artificial ROM Procedures- Other: forbag Plan: Continue Present Management Informed Consent Obtained: Vaginal Delivery Informed Consent Obtained: Vaginal Delivery; Risks, Benefits and Alternatives Discussed Vital Signs : Reviewed; Within Normal Limits Comment: Pt feeling more pressure, continues to decline need for pain meds Forbag ruptured Anticipate VAGINAL EXAM Dilatation: 7 Dilatation: 5 Effacement: 80 Effacement: 60 Station: -1 Station: -2 Contractions: 3-4 Contractions: q 2-3 MEMBRANES Pooling: Positive Membranes: Ruptured Membranes: Ruptured Amniotic Fluid Color: Clear Amniotic Fluid Color: Clear FETUS A FHR - Baseline: 140 Monitoring: External US Variability: Moderate 6-25bpm Accelerations: 15X15 Decelerations: Variable FHR Category: Category II Estimated Weight (gm): 3400 Estimated Weight (gm): 8 Presentation: Vertex SIGNATURE SIGNATURE: [id number] SIGNATURE: [id number] SIGNATURE: [id number] SIGNATURE: [id number] Assignment: Lilian Dale MD Signature: with User ID: HDrake : with User ID: [id number]
[2016-03-25] MEDS ORDERED: MISOPROSTOL 0.2 MG TABLET ONE (11:26)
[2016-03-25] MEDS ORDERED: LIDOCAINE 1% INJ-PF (10 MG/ML) 30 ML SDV ONE (11:26)
[2016-03-25] MEDS ORDERED: OXYTOCIN/NORMAL SALINE 20 UNIT/1,000 ML RTUINJ ONE (11:27)
[2016-03-25] MEDS ORDERED: OXYTOCIN/NORMAL SALINE 1,000 ML IV PRN ×2 (11:30→13:58)
--- NOTE | 2016-03-25 12:01 | L&D Flow Sheet ---
LD Flowsheet Datetime Report Generated by CPN: 03/25/2016 12:00 Datetime: 03/25/2016 11:30 Monitor Mode: External (Marita Magaña RN) Frequency (min): 2-6 (Marita Magaña RN) Quality: Moderate (Marita Magaña RN) Duration (sec): 40-150 (Marita Magaña RN) Duration Criteria: Less than Two 120 Second Contractions (Marita Magaña RN) Pattern: Normal: <= 5 Contractions in 10 Minutes (Marita Magaña RN) Resting Tone (Palpate): Relaxed (Marita Magaña RN) Monitor Mode: External US (Marita Magaña RN) FHR Baseline Rate : 135 (Marita Magaña RN) Variability: Moderate 6-25 bpm (Marita Magaña RN) Accelerations: None (Marita Magaña RN) Decelerations: None (Marita Magaña RN) Pitocin (milliunit): Pitocin Started (milliunits) @ 2; Pitocin 20 Units in 1000ml NS (Marita Magaña RN) Datetime: 03/25/2016 11:28 Communication Comments: Orders to start Pitocin and increase every 30 minute per protocol per H. Taras CNM (Marita Magaña, RN) Datetime: 03/25/2016 11:02 NBP Sys/Sandy/Mean (mmHg): 117 (QS system process) : 72 (QS system process) : 89 (QS system process) Pulse: 85 (QS system process) LaborFlag: Labor (QS system process) Datetime: 03/25/2016 11:00 Monitor Mode: External (Marita Magaña RN) Frequency (min): 4-7 (Marita Magaña, RN) Quality: Moderate (Marita Magaña RN) Duration (sec): 70-180 (Marita Magaña RN) Duration Criteria: Less than Two 120 Second Contractions (Marita Magaña RN) Pattern: Normal: <= 5 Contractions in 10 Minutes (Marita Magaña RN) Resting Tone (Palpate): Relaxed (Marita Magaña RN) Monitor Mode: External US (Marita Magaña RN) FHR Baseline Rate : 135 (Marita Magaña RN) Variability: Moderate 6-25 bpm (Marita Magaña RN) Accelerations: 10X10 (Marita Magaña RN) Decelerations: None (Marita Magaña RN) Datetime: 03/25/2016 10:58 Membrane Comments: Ruptured forebag. Clear fluid (Marita Magaña RN) Communication Comments: H. Taras CNM at bedside (Marita Magaña RN) Datetime: 03/25/2016 10:46 Dilatation (cm): 6.0 (Marita Magaña RN) Effacement (%): 80 (Marita Magaña RN) Station: -1 (Marita Magaña, RN) Exam by: A. Magaña RN (Marita Gómez, RN) Datetime: 03/25/2016 10:41 Patient Position/Activity: Left Lateral (Marita Gómez, RN) Datetime: 03/25/2016 09:39 Communication Comments: Monitors removed. IV saline locked for pt to walk. (Marita Magaña, RN) Datetime: 03/25/2016 09:32 I/O Interventions: Up to BR (Marita Magaña, RN) Datetime: 03/25/2016 09:30 Monitor Mode: External (Marita Magaña, RN) Frequency (min): 3-6 (Marita Magaña, RN) Quality: Moderate (Maritajuan jose Magaña, RN) Duration (sec): 50-200 (Marita Magaña, RN) Duration Criteria: Less than Two 120 Second Contractions (Marita Magaña, RN) Pattern: Normal: <= 5 Contractions in 10 Minutes (Mraitajuan jose Magaña, RN) Resting Tone (Palpate): Relaxed (Marita Magaña, RN) Monitor Mode: External US (Marita Magaña, RN) FHR Baseline Rate : 135 (Maritajuan jose Magaña, RN) Variability: Moderate 6-25 bpm (Marita Magaña, RN) Accelerations: 10X10 (Marita Magaña, RN) Decelerations: None (Marita Magaña, RN) Datetime: 03/25/2016 09:26 NBP Sys/Sandy/Mean (mmHg): 133 (QS system process) : 63 (QS system process) : 91 (QS system process) Pulse: 96 (QS system process) LaborFlag: Labor (QS system process) Datetime: 03/25/2016 09:00 Monitor Mode: External (Marita Magaña, RN) Frequency (min): 3-6 (Marita Magaña, RN) Quality: Moderate (Marita Magaña, RN) Duration (sec): 50-150 (Marita Magaña, RN) Duration Criteria: Less than Two 120 Second Contractions (Marita Magaña, RN) Pattern: Normal: <= 5 Contractions in 10 Minutes (Marita Magaña, RN) Resting Tone (Palpate): Relaxed (Marita Gómez, RN) Monitor Mode: External US (Marita Gómez, RN) FHR Baseline Rate : 140 (Marita Magaña, RN) Variability: Moderate 6-25 bpm (Marita Magaña, RN) Accelerations: None (Marita Magaña, RN) Decelerations: Early (Marita Magaña, RN) Datetime: 03/25/2016 08:31 Monitor Interventions for FHR: Ultrasound Adjusted (Marita Gómez, RN) Communication: RN at Bedside (Marita Gómez, RN) Datetime: 03/25/2016 08:30 Monitor Mode: External (Marita Magaña, RN) Frequency (min): 3-6 (Marita Magaña, RN) Quality: Moderate (Marita Magaña, RN) Duration (sec): 50-160 (Marita Magaña, RN) Duration Criteria: Less than Two 120 Second Contractions (Marita Magaña, RN) Pattern: Normal: <= 5 Contractions in 10 Minutes (Marita Magaña, RN) Resting Tone (Palpate): Relaxed (Marita Magaña, RN) Monitor Mode: External US (Marita Magaña, RN) FHR Baseline Rate : 135 (Marita Magaña, RN) Variability: Moderate 6-25 bpm (Marita Magaña, RN) Accelerations: 10X10 (Marita Magaña, RN) Decelerations: None (Marita Magaña, RN) Datetime: 03/25/2016 08:00 Monitor Mode: External (Marita Magaña, RN) Frequency (min): 3-6 (Marita Magaña, RN) Quality: Moderate (Marita Magaña, RN) Duration (sec): 50-140 (Marita Magaña, RN) Duration Criteria: Less than Two 120 Second Contractions (Marita Magaña, RN) Pattern: Normal: <= 5 Contractions in 10 Minutes (Marita Magaña, RN) Resting Tone (Palpate): Relaxed (Marita Magaña, RN) Monitor Mode: External US (Marita Magaña RN) FHR Baseline Rate : 135 (Marita Magaña, RN) Variability: Moderate 6-25 bpm (Marita Magaña, RN) Accelerations: 15X15 (Marita Magaña, RN) Decelerations: None (Marita Magaña, RN)
[2016-03-25] MEDS ORDERED: IBUPROFEN 800 MG TABLET ONE (13:56)
[2016-03-25] MEDS ORDERED: MEASLES,MUMPS&RUBELLA VACC/PF 0.5 ML VIAL SUBCUT PRN (13:58)
[2016-03-25] MEDS ORDERED: ZOLPIDEM TARTRATE 5 MG TABLET PO PRN (13:58)
[2016-03-25] MEDS ORDERED: BENZOCAINE/MENTHOL AEROSOL SPRAY 56 ML TOP PRN (13:58)
[2016-03-25] MEDS ORDERED: ACETAMINOPHEN WITH CODEINE #3 TABLET PO PRN ×2 (13:58)
[2016-03-25] MEDS ORDERED: DIBUCAINE 1% OINTMENT 28 GM TP PRN (13:58)
[2016-03-25] MEDS ORDERED: DIPH/PERTUSS(ACELL)/TETANUS VAC/PF 0.5 ML SYR (>=10YO) IM PRN (13:58)
--- NOTE | 2016-03-25 15:48 | Admission Physical ---
Datetime Report Generated by CPN: 03/25/2016 15:48 CURRENT ADMISSION Chief Complaint: Uterine Contractions; Suspected Ruptured Membranes Admit Plan: Admit to Unit; Initiate Labor Protocol ALLERGIES Medication Allergies: No Medication Allergies: No Known Allergies (03/23/2016) Latex: No Latex Allergies Food Allergies: NA Environmental Allergies: NA OBSTETRICAL HISTORY EDC: 03/27/2016 00:00 : 2 Para: 1 Term: 1 : 0 SAB: 0 IAB: 0 Ectopic: 0 Livin Cesareans: 0 VBACs: 0 Multiple Births: 0 Gestational Diabetes: No Rh Sensitization: No Incompetent Cervix: No NINA: No Infertility: No ART Treatment: No Uterine Anomaly: No IUGR: No Hx Previous C/S: No Macrosomia: No Hx Loss/Stillborn: No PIH: No Hx : No Placenta Previa/Abruption: No Depression/PP Depression: No PTL/PROM: No Post Hemorrhage: No Current Procedures: Ultrasound; NST Obstetrical History Comments: G1: 2008 male 7 lb 14 oz G2: current SEE RECORDS Alcohol: No Marijuana : No Cocaine: No Other Illicit Drugs: No Cigarettes: Never Smoker. [id number] MEDICAL HISTORY Diabetes: No Blood Transfusion: No Pulmonary Disease (Asthma, TB): No Breast Disease: No Hypertension: No Inspector Aide Surgery: No Heart Disease: No Hosp/Surgery: Yes Autoimmune Disorder: No Anesthetic Complications: No Kidney Disease: No Abnormal Pap Smear: Yes Neuro/Epilepsy: No Psychiatric Disorders: No Other Medical Diseases: No Hepatitis/Liver Disease: No Significant Family History: No Varicosities/Phlebitis: No Trauma/Violence : No Thyroid Dysfunction: No Medical History Comments: hospitalization childbirth, hx abn pap? INFECTIOUS HISTORY Gonorrhea: No Genital Herpes: No Chlamydia: Yes Tuberculosis: No Syphilis: No Hepatitis: No HIV/AIDS Exposure: No Rash or Viral Illness: No HPV: No Infectious History Comments: 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) and negative GAURI BV in G2 PHYSICAL EXAM General: Normal HEENT: Normal Neurologic: Normal Thyroid: Normal Heart: Normal Lungs: Normal Breast: Deferred Back: Normal Abdomen: Normal Genitourinary Exam: Normal Extremities: Normal DTRs: Normal Pelvic Type: Adequate Vital Signs: Reviewed; Within Normal Limits VAGINAL EXAM Dilatation: 7 Effacement: 80 Station: -1 Contraction Comments: 3-4 MEMBRANES Pooling: Positive Membranes: Ruptured Amniotic Fluid Color: Clear FETUS A EGA: 39.5 Monitoring: External US FHR- Baseline: 125 Variability: Moderate 6-25bpm Accelerations: 10X10 Decelerations: None FHR Category: Category II Estimated Weight (gm): 3400 Presentation: Vertex Admit Comment: 25yo at 39+5ega presents for SROM at approx 0520 this am. GBS negative. Cvx changed from eval last evening. Irreg ctx at this time. Pelvis proven to 7#14oz. Admit to L_D and augment labor if needed. Anticipate . H/o chlamydia during this . Transfer to [facility] at 34 wks from HD. PLANS FOR LABOR AND DELIVERY Labor and Delivery: Plan Pain Management: Natural Feeding Preference: Breast Benefit of Breast Feed Discussed: Yes Circumcision: N/A INFORMED CONSENT Informed Consent Obtained: Vaginal Delivery Signature: with User ID: [email or web address]
--- NOTE | 2016-03-25 15:56 | Delivery Summary ---
Del Sum A-C Datetime Report Generated by CPN: 03/25/2016 15:56 ADMISSION DATA Chief Complaint: Uterine Contractions; Suspected Ruptured Membranes Admission Impression: Active Labor; Ruptured Membranes Admit Provider Comments: 25yo at 39+5ega presents for SROM at approx 0520 this am. GBS negative. Cvx changed from eval last evening. Irreg ctx at this time. Pelvis proven to 7#14oz. Admit to L_D and augment labor if needed. Anticipate . H/o chlamydia during this . Transfer to A at 34 wks from HD. DELIVERY PERSONNEL Delivery Doctor:: Estela Grajeda CNM Nurse Medical Sales Consultant Certified:: Estela Grajeda CNM Labor and Delivery Nurse:: Marita Magaña RNrestaurant hospitality manager Nurse:: Callie Hillman RN Operations Manager/DELIVERY ANALYST: Gabbie Alcantara CNA II MATERNAL INFORMATION Delivery Anesthesia: None Medications After Delivery: Pitocin Bolus-Please Comment; Pitocin Drip 20 Units/1000ml NSS Estimated Blood Loss (ml): 200 Maternal Complications: None Provider Comments: of viable female infant over intact perineum, head delivered, loose nuchal X1 noted, delivered through, shoulders and body delivered without difficulty. with spontaneous cry and respirations, to maternal abodmen, cord clamped X2 after 2 min delay, cut free cut by pts , spontaneous delivery of intact placenta via sapp mechanism, 3vc. Vagina and perineum inspected no laceratioons noted, hemostasis acheived with external fundal massage and IV pitocin, mother and infant in stable condition. LABOR SUMMARY EDC: 03/27/2016 00:00 No. Babies in Womb: 1 Attempted: No Labor Anesthesia: None LABOR INFORMATION Reason for Induction: Not Applicable Onset of Labor: 03/25/2016 05:25 Complete Dilatation: 03/25/2016 13:20 Oxytocin: Augmentation Group B Beta Strep: neg Antibiotics # of Doses: 0 Steroids Given: None Reason Steroids Not Administered: Not Applicable MEMBRANES Membranes Rupture Method: Spontaneous Rupture of Membranes: 03/25/2016 05:25 Length of Rupture (hr): 8.07 Amniotic Fluid Color: Clear Amniotic Fluid Amount: Large Amniotic Fluid Odor: Normal STAGES OF LABOR Stage 1 hr: 7 Stage 1 min: 55 Stage 2 hr: 0 Stage 2 min: 9 Stage 3 hr: 0 Stage 3 min: 2 Total Time in Labor hr: 8 Total Time in Labor min: 6 VAGINAL DELIVERY Episiotomy: None Laceration Extension: N/A Laceration Type: None Laceration Repair: Not Applicable Laceration Repair Note: n/a Sponge Count Correct: N/A Sharps Count Correct: N/A CSECTION DELIVERY Primary Indication: N/A Secondary Indication: N/A Labor: N/A CSection Incision: N/A BABY A INFORMATION Delivery Date/Time: 03/25/2016 13:29 Method of Delivery: Vaginal Born in Route : No : N/A Forceps: N/A Vacuum Extraction: N/A Shoulder Dystocia : No PRESENTATION/POSITION BABY A Presentation: Cephalic Cephalic Presentation: Vertex Vertex Position: Left Occipital Anterior Breech Presentation: N/A PLACENTA INFORMATION BABY A Placenta Delivery Time : 03/25/2016 13:31 Placenta Method of Delivery: Spontaneous Placenta Status: Delivered SCORES BABY A Heart Rate 1 min: >100 bpm Resp Effort 1 min: Good Cry Reflex Irritability 1 min: Cough or Sneeze or Pulls Away Muscle Tone 1 min: Active Motion Color 1 min: Blue/Pale Resuscitation Effort 1 min: Tactile Stimulation SCORE 1 MIN: 8 Heart Rate 5 min: >100 bpm Resp Effort 5 min: Good Cry Reflex Irritability 5 min: Cough or Sneeze or Pulls Away Muscle Tone 5 min: Active Motion Color 5 min: Body [place], Extremities Blue Resuscitation Effort 5 min: N/A SCORE 5 MIN: 9 Resuscitation Effort 10 min: N/A INFORMATION BABY A Gestational Age at Delivery: 39.5 Gestational Status: Full Term- 39- 40.6 Weeks Outcome : Liveborn Infant Condition : Stable Infant Sex: Female IDENTIFICATION BABY A Verification Date/Time: 03/25/2016 13:58 ID Band Number: [id number] Mother's Name Verified: Yes Infant RN Verifying Infant: Chico Sánchez RN Additional Verifying Personnel: Mikala Magaña RN WEIGHT/LENGTH BABY A Infant Birthweight (gm): 3770 Infant Weight (lb): 8 Weight (oz): 5 Length (in): 21.00 Length (cm): 53.34 CORD INFORMATION BABY A No. Cord Vessels: 3 Nuchal Cord : Around Neck x1, Loose Cord Blood Taken: Yes-For Storage (Mom's Blood type +) Suction: Mouth; Nose ASSESSMENT BABY A Infant Complications: None Physical Findings at Delivery: Within Normal Limits Respirations: Appears Normal Skin to Skin: Yes Professor Of Vegetable Science/ALS Called : No Infant Care By: Prakash Hillman RN Transferred To: Remains with Mother BABY B INFORMATION : N/A SIGNATURES Assignment: Lilian Dale MD Signature: with User ID: Miguel : with User ID: Miguel
--- NOTE | 2016-03-25 16:01 | L&D Flow Sheet ---
LD Flowsheet Datetime Report Generated by CPN: 03/25/2016 16:00 Datetime: 03/25/2016 15:38 Stage of : Recovery (Marita Magaña, RN) Datetime: 03/25/2016 15:30 Stage of : Recovery (Marita Magaña, RN) Datetime: 03/25/2016 15:21 Stage of : Recovery (Marita Gómez, RN) NBP Sys/Sandy/Mean (mmHg): 111 (QS system process) : 57 (QS system process) : 78 (QS system process) Pulse: 100 (QS system process) Pain Scale: 0 (Maritajuan jose Magaña, RN) Datetime: 03/25/2016 15:06 Stage of : Recovery (Marita Gómez RN) NBP Sys/Sandy/Mean (mmHg): 122 (QS system process) : 65 (QS system process) : 86 (QS system process) Pulse: 93 (QS system process) Pain Scale: 0 (Marita Magaña, RN) Datetime: 03/25/2016 14:51 Stage of : Recovery (Marita Magaña RN) NBP Sys/Sandy/Mean (mmHg): 119 (QS system process) : 63 (QS system process) : 87 (QS system process) Pulse: 85 (QS system process) Pain Scale: 0 (Marita Magaña RN) Datetime: 03/25/2016 14:36 Stage of : Recovery (Marita Magaña RN) NBP Sys/Sandy/Mean (mmHg): 117 (QS system process) : 56 (QS system process) : 81 (QS system process) Pulse: 94 (QS system process) Pain Scale: 1 (Marita Magaña RN) Pain Presence: Intermittent (Marita Magaña RN) Pain Type: Burning; Cramping; Pressure; Ache (Marita Magaña RN) Pain Location: Abdomen; Perineum (Marita Magaña RN) Datetime: 03/25/2016 14:22 NBP Sys/Sandy/Mean (mmHg): 113 (QS system process) : 59 (QS system process) : 83 (QS system process) Pulse: 81 (QS system process) Datetime: 03/25/2016 14:20 Stage of : Recovery (Marita Magaña, RN) Pain Scale: 1 (Marita Magaña, RN) Pain Presence: Intermittent (Marita Magaña, RN) Pain Type: Burning; Cramping; Pressure; Ache (Marita Magaña, RN) Pain Location: Abdomen; Perineum (Marita Magaña, RN) Datetime: 03/25/2016 14:05 Stage of : Recovery (Marita Magaña, RN) Pain Scale: 1 (Marita Magaña, RN) Pain Presence: Intermittent (Marita Magaña, RN) Pain Type: Burning; Cramping; Pressure; Ache (Marita Magaña, RN) Pain Location: Abdomen; Perineum (Marita Magaña, RN) Datetime: 03/25/2016 13:59 Stage of : Recovery (Marita Magaña RN) Pain Scale: 1 (Marita Magaña, RN) Pain Presence: Intermittent (Marita Magaña, RN) Pain Type: Burning; Cramping; Pressure; Ache (Marita Magaña, RN) Pain Location: Abdomen; Perineum (Marita Magaña, RN) Datetime: 03/25/2016 13:51 Stage of : Recovery (Marita Magaña RN) NBP Sys/Sandy/Mean (mmHg): 120 (QS system process) : 69 (QS system process) : 89 (QS system process) Pulse: 84 (QS system process) Pain Scale: 1 (Marita Magaña RN) Pain Presence: Intermittent (Marita Magaña, RN) Pain Type: Burning; Cramping; Pressure; Ache (Marita Magaña, RN) Pain Location: Abdomen; Perineum (Marita Magaña, RN) Datetime: 03/25/2016 13:36 Stage of : Recovery (Marita Magaña RN) NBP Sys/Sandy/Mean (mmHg): 121 (QS system process) : 73 (QS system process) : 91 (QS system process) Pulse: 86 (QS system process) Respirations: 16 (Marita Magaña RN) Temperature (F): 98.2 (Marita Magaña RN) Temperature (C): 36.8 (QS system process) Pain Scale: 1 (Marita Magaña RN) Pain Presence: Intermittent (Marita Magaña RN) Pain Type: Burning; Cramping; Pressure; Ache (Marita Magaña RN) Pain Location: Abdomen; Perineum (Marita Magaña RN) Datetime: 03/25/2016 13:31 Stage of : Recovery (Marita Magaña RN) Datetime: 03/25/2016 13:28 Monitor Mode: External; Palpation (Marita Magaña RN) Frequency (min): 1-2 (Marita Magaña RN) Quality: Moderate to Strong (Marita Magaña RN) Duration (sec): 60-80 (Marita Magaña RN) Duration Criteria: Less than Two 120 Second Contractions (Marita Magaña RN) Pattern: Normal: <= 5 Contractions in 10 Minutes (Marita Magaña RN) Resting Tone (Palpate): Relaxed (Marita Magaña RN) Comments: FHTs 125s. (Marita Magaña RN) Datetime: 03/25/2016 13:23 Monitor Interventions for UA: [place] Adjusted (Marita Magaña RN) Datetime: 03/25/2016 13:22 Pushing: Urge to Push (Marita Magaña RN) Pushing Position: Pushing with Contractions (Marita Magaña RN) Preparation for Delivery: Perineal Prep Done (Marita Magaña RN) Stage 2 Comments: H Taras CNM at BS pushing with pt (Marita Magaña RN) Datetime: 03/25/2016 13:20 Dilatation (cm): 10.0 (Marita Magaña RN) Effacement (%): 100 (Marita Magaña RN) Station: 1 (Marita Magaña RN) Exam by: Alicia Grajeda CNM (Marita Magaña RN) Preparation for Delivery: Setup for Delivery (Marita Magaña RN) Datetime: 03/25/2016 13:19 Maternal Comments: Pt calling out saying she is feeling intense pressure (Marita Magaña RN) Datetime: 03/25/2016 13:15 Monitor Mode: External (Marita Magaña RN) Frequency (min): 2-3 (Marita Magaña RN) Quality: Moderate (Marita Magaña RN) Duration (sec): 60-100 (Marita Magaña RN) Resting Tone (Palpate): Relaxed (Marita Magaña, RN) Monitor Mode: External US (Marita Magaña RN) FHR Baseline Rate : 135 (Marita Magaña RN) Variability: Moderate 6-25 bpm (Marita Magaña RN) Accelerations: None (Marita Magaña RN) Decelerations: Early (Marita Magaña RN) Pitocin (milliunit): Pitocin Remains (milliunits) @ 4 (Marita Magaña, RN) Datetime: 03/25/2016 13:13 I/O Interventions: Up to BR (Marita Magaña RN) Datetime: 03/25/2016 13:02 NBP Sys/Sandy/Mean (mmHg): 117 (QS system process) : 60 (QS system process) : 83 (QS system process) Pulse: 86 (QS system process) LaborFlag: Labor (QS system process) Datetime: 03/25/2016 13:00 Monitor Mode: External (Marita Magaña, RN) Frequency (min): 2-3 (Marita Magaña, RN) Quality: Moderate (Marita Magaña, RN) Duration (sec): 60-100 (Marita Magaña, RN) Resting Tone (Palpate): Relaxed (Marita Magaña, RN) Monitor Mode: External US (Marita Magaña, RN) FHR Baseline Rate : 135 (Marita Magaña, RN) Variability: Moderate 6-25 bpm (Marita Magaña, RN) Accelerations: None (Marita Magaña, RN) Decelerations: None (Marita Magaña, RN) Pitocin (milliunit): Pitocin Remains (milliunits) @ 4 (Marita Magaña, RN) Datetime: 03/25/2016 12:56 Patient Position/Activity: Peanut Ball; Right Extreme (Marita Magaña, RN) Datetime: 03/25/2016 12:45 Monitor Mode: External (Marita Magaña, RN) Frequency (min): 2-3 (Maritajuan jose Magaña, RN) Quality: Moderate (Marita Gómez, RN) Duration (sec): 60-180 (Marita Gómez, RN) Duration Criteria: Less than Two 120 Second Contractions (Maritajuan jose Magaña, RN) Pattern: Normal: <= 5 Contractions in 10 Minutes (Maritajuan jose Magaña, RN) Resting Tone (Palpate): Relaxed (Maritajuan jose Magaña, RN) Monitor Mode: External US (Marita Magaña, RN) FHR Baseline Rate : 135 (Maritajuan jose Magaña, RN) Variability: Moderate 6-25 bpm (Maritajuan jose Magaña, RN) Accelerations: 10X10 (Maritajuan jose Magaña, RN) Decelerations: None (Marita Magaña, RN) Pitocin (milliunit): Pitocin Remains (milliunits) @ 4 (Maritajuan jose Magaña, RN) Datetime: 03/25/2016 12:44 I/O Interventions: Up to BR (Marita Magaña, RN) Datetime: 03/25/2016 12:41 Dilatation (cm): 7.5 (Marita Magaña, RN) Effacement (%): 100 (Marita Magaña RN) Station: 0 (Marita Magaña, RN) Exam by: H. Taras CNM (Marita Magaña, RN) Datetime: 03/25/2016 12:30 Monitor Mode: External (Marita Magaña RN) Frequency (min): 1-2 (Marita Magaña, RN) Quality: Moderate (Marita Magaña, RN) Duration (sec): 40-140 (Marita Magaña, RN) Duration Criteria: Less than Two 120 Second Contractions (Marita Magaña, RN) Pattern: Normal: <= 5 Contractions in 10 Minutes (Marita Magaña, RN) Resting Tone (Palpate): Relaxed (Marita Magaña, RN) Monitor Mode: External US (Marita Magaña, RN) FHR Baseline Rate : 135 (Marita Magaña, RN) Variability: Moderate 6-25 bpm (Marita Magaña, RN) Accelerations: 10X10 (Marita Magaña, RN) Decelerations: Early (Maritajuan jose Magaña, RN) Datetime: 03/25/2016 12:20 Monitor Interventions for UA: [place] Adjusted (Marita Magaña, RN) Datetime: 03/25/2016 12:19 Patient Position/Activity: Birthing Ball (Marita Magaña, RN) Datetime: 03/25/2016 12:15 Monitor Mode: External (Marita Magaña RN) Frequency (min): 2-3 (Marita Magaña RN) Quality: Moderate (Marita Magaña RN) Duration (sec): 60-150 (Marita Magaña RN) Duration Criteria: Less than Two 120 Second Contractions (Marita Magaña RN) Pattern: Normal: <= 5 Contractions in 10 Minutes (Marita Magaña RN) Resting Tone (Palpate): Relaxed (Marita Magaña RN) Monitor Mode: External US (Marita Magaña RN) FHR Baseline Rate : 135 (Marita Magaña RN) Variability: Moderate 6-25 bpm (Marita Magaña RN) Accelerations: 10X10 (Marita Magaña RN) Decelerations: None (Marita Magaña, RN) Pitocin (milliunit): Pitocin Remains (milliunits) @ 4 (Marita Magaña, RN) Datetime: 03/25/2016 12:14 I/O Interventions: Up to BR (Marita Magaña, RN) Datetime: 03/25/2016 12:09 Patient Position/Activity: Hands-Knees (Marita Magaña, RN) Datetime: 03/25/2016 12:00 Monitor Mode: External (Marita Magaña RN) Frequency (min): 3-6 (Marita Magaña RN) Quality: Moderate (Marita Magaña RN) Duration (sec): 60-150 (Marita Magaña RN) Duration Criteria: Less than Two 120 Second Contractions (Marita Magaña RN) Pattern: Normal: <= 5 Contractions in 10 Minutes (Marita Magaña RN) Resting Tone (Palpate): Relaxed (Marita Magaña RN) Monitor Mode: External US (Marita Magaña RN) FHR Baseline Rate : 135 (Marita Magaña RN) Variability: Moderate 6-25 bpm (Marita Magaña RN) Accelerations: 10X10 (Marita Magaña RN) Decelerations: None (Marita Magaña RN) Pitocin (milliunit): Pitocin Increased to (milliunits) @ 4 (Marita Magaña, RN)
[2016-03-25] MEDS: IBUPROFEN 800 MG TABLET PO SCH ×2 (17:42→21:35)
[2016-03-25] MEDS: DOCUSATE SODIUM 100 MG CAPSULE PO SCH (17:45)
[2016-03-25] MEDS: FERROUS SULFATE 325 MG TABLET PO SCH (17:45)
--- NOTE | 2016-03-25 19:01 | L&D Flow Sheet ---
LD Flowsheet Datetime Report Generated by CPN: 03/25/2016 19:00 Datetime: 03/25/2016 15:38 Stage of : Recovery (Marita Magaña, RN) Datetime: 03/25/2016 15:30 Stage of : Recovery (Marita Magaña, RN) Datetime: 03/25/2016 15:21 Stage of : Recovery (Marita Gómez, RN) NBP Sys/Sandy/Mean (mmHg): 111 (QS system process) : 57 (QS system process) : 78 (QS system process) Pulse: 100 (QS system process) Pain Scale: 0 (Maritajuan jose Magaña, RN) Datetime: 03/25/2016 15:06 Stage of : Recovery (Marita Gómez RN) NBP Sys/Sandy/Mean (mmHg): 122 (QS system process) : 65 (QS system process) : 86 (QS system process) Pulse: 93 (QS system process) Pain Scale: 0 (Marita Magaña, RN) Datetime: 03/25/2016 14:51 Stage of : Recovery (Marita Magaña RN) NBP Sys/Sandy/Mean (mmHg): 119 (QS system process) : 63 (QS system process) : 87 (QS system process) Pulse: 85 (QS system process) Pain Scale: 0 (Marita Magaña RN) Datetime: 03/25/2016 14:36 Stage of : Recovery (Marita Magaña RN) NBP Sys/Sandy/Mean (mmHg): 117 (QS system process) : 56 (QS system process) : 81 (QS system process) Pulse: 94 (QS system process) Pain Scale: 1 (Marita Magaña RN) Pain Presence: Intermittent (Marita Magaña RN) Pain Type: Burning; Cramping; Pressure; Ache (Marita Magaña RN) Pain Location: Abdomen; Perineum (Marita Magaña RN) Datetime: 03/25/2016 14:22 NBP Sys/Sandy/Mean (mmHg): 113 (QS system process) : 59 (QS system process) : 83 (QS system process) Pulse: 81 (QS system process) Datetime: 03/25/2016 14:20 Stage of : Recovery (Marita Magaña, RN) Pain Scale: 1 (Marita Magaña, RN) Pain Presence: Intermittent (Marita aMgaña, RN) Pain Type: Burning; Cramping; Pressure; Ache (Marita Magaña, RN) Pain Location: Abdomen; Perineum (Marita Magaña, RN) Datetime: 03/25/2016 14:05 Stage of : Recovery (Marita Magaña, RN) Pain Scale: 1 (Marita Magaña, RN) Pain Presence: Intermittent (Marita Magaña, RN) Pain Type: Burning; Cramping; Pressure; Ache (Marita Magaña, RN) Pain Location: Abdomen; Perineum (Marita Magaña, RN) Datetime: 03/25/2016 13:59 Stage of : Recovery (Marita Magaña RN) Pain Scale: 1 (Marita Magaña, RN) Pain Presence: Intermittent (Marita Magaña, RN) Pain Type: Burning; Cramping; Pressure; Ache (Marita Magaña, RN) Pain Location: Abdomen; Perineum (Marita Magaña, RN) Datetime: 03/25/2016 13:51 Stage of : Recovery (Marita Magaña RN) NBP Sys/Sandy/Mean (mmHg): 120 (QS system process) : 69 (QS system process) : 89 (QS system process) Pulse: 84 (QS system process) Pain Scale: 1 (Marita Magaña RN) Pain Presence: Intermittent (Marita Magaña, RN) Pain Type: Burning; Cramping; Pressure; Ache (Marita Magaña, RN) Pain Location: Abdomen; Perineum (Marita Magaña, RN) Datetime: 03/25/2016 13:36 Stage of : Recovery (Marita Magaña RN) NBP Sys/Sandy/Mean (mmHg): 121 (QS system process) : 73 (QS system process) : 91 (QS system process) Pulse: 86 (QS system process) Respirations: 16 (Marita Magaña RN) Temperature (F): 98.2 (Marita Magaña RN) Temperature (C): 36.8 (QS system process) Pain Scale: 1 (Marita Magaña RN) Pain Presence: Intermittent (Marita Magaña RN) Pain Type: Burning; Cramping; Pressure; Ache (Marita Magaña RN) Pain Location: Abdomen; Perineum (Marita Magaña RN) Datetime: 03/25/2016 13:31 Stage of : Recovery (Marita Magaña RN) Datetime: 03/25/2016 13:28 Monitor Mode: External; Palpation (Marita Magaña RN) Frequency (min): 1-2 (Marita Magaña RN) Quality: Moderate to Strong (Marita Magaña RN) Duration (sec): 60-80 (Marita Magaña RN) Duration Criteria: Less than Two 120 Second Contractions (Marita Magaña RN) Pattern: Normal: <= 5 Contractions in 10 Minutes (Marita Magaña RN) Resting Tone (Palpate): Relaxed (Marita Magaña RN) Comments: FHTs 125s. (Marita Magaña RN) Datetime: 03/25/2016 13:23 Monitor Interventions for UA: [place] Adjusted (Marita Magaña RN) Datetime: 03/25/2016 13:22 Pushing: Urge to Push (Marita Magaña RN) Pushing Position: Pushing with Contractions (Marita Magaña RN) Preparation for Delivery: Perineal Prep Done (Marita Magaña RN) Stage 2 Comments: H Taras CNM at BS pushing with pt (Marita Magaña RN) Datetime: 03/25/2016 13:20 Dilatation (cm): 10.0 (Marita Magaña RN) Effacement (%): 100 (Marita Magaña RN) Station: 1 (Marita Magaña RN) Exam by: Alicia Grajeda CNM (Marita Magaña RN) Preparation for Delivery: Setup for Delivery (Marita Magaña RN) Datetime: 03/25/2016 13:19 Maternal Comments: Pt calling out saying she is feeling intense pressure (Marita Magaña RN) Datetime: 03/25/2016 13:15 Monitor Mode: External (Marita Magaña RN) Frequency (min): 2-3 (Marita Magaña RN) Quality: Moderate (Marita Magaña RN) Duration (sec): 60-100 (Marita Magaña RN) Resting Tone (Palpate): Relaxed (Marita Magaña, RN) Monitor Mode: External US (Marita Magaña RN) FHR Baseline Rate : 135 (Marita Magaña RN) Variability: Moderate 6-25 bpm (Marita Magaña RN) Accelerations: None (Marita Magaña RN) Decelerations: Early (Marita Magaña RN) Pitocin (milliunit): Pitocin Remains (milliunits) @ 4 (Marita Magaña, RN) Datetime: 03/25/2016 13:13 I/O Interventions: Up to BR (Marita Magaña RN) Datetime: 03/25/2016 13:02 NBP Sys/Sandy/Mean (mmHg): 117 (QS system process) : 60 (QS system process) : 83 (QS system process) Pulse: 86 (QS system process) LaborFlag: Labor (QS system process) Datetime: 03/25/2016 13:00 Monitor Mode: External (Marita Magaña, RN) Frequency (min): 2-3 (Marita Magaña, RN) Quality: Moderate (Marita Magaña, RN) Duration (sec): 60-100 (Marita Magaña, RN) Resting Tone (Palpate): Relaxed (Marita Magaña, RN) Monitor Mode: External US (Marita Magaña, RN) FHR Baseline Rate : 135 (Marita Magaña, RN) Variability: Moderate 6-25 bpm (Marita Magaña, RN) Accelerations: None (Marita Magaña, RN) Decelerations: None (Marita Magaña, RN) Pitocin (milliunit): Pitocin Remains (milliunits) @ 4 (Marita Magaña, RN) Datetime: 03/25/2016 12:56 Patient Position/Activity: Peanut Ball; Right Extreme (Marita Magaña, RN) Datetime: 03/25/2016 12:45 Monitor Mode: External (Marita Magaña, RN) Frequency (min): 2-3 (Maritajuan jose Magaña, RN) Quality: Moderate (Marita Gómez, RN) Duration (sec): 60-180 (Marita Gómez, RN) Duration Criteria: Less than Two 120 Second Contractions (Maritajuan jose Magaña, RN) Pattern: Normal: <= 5 Contractions in 10 Minutes (Maritajuan jose Magaña, RN) Resting Tone (Palpate): Relaxed (Maritajuan jose Magaña, RN) Monitor Mode: External US (Marita Magaña, RN) FHR Baseline Rate : 135 (Maritajuan jose Magaña, RN) Variability: Moderate 6-25 bpm (Maritajuan jose Magaña, RN) Accelerations: 10X10 (Maritajuan jose Magaña, RN) Decelerations: None (Marita Magaña, RN) Pitocin (milliunit): Pitocin Remains (milliunits) @ 4 (Maritajuan jose Magaña, RN) Datetime: 03/25/2016 12:44 I/O Interventions: Up to BR (Marita Magaña, RN) Datetime: 03/25/2016 12:41 Dilatation (cm): 7.5 (Marita Magaña, RN) Effacement (%): 100 (Marita Magaña RN) Station: 0 (Marita Magaña, RN) Exam by: H. Taras CNM (Marita Magaña, RN) Datetime: 03/25/2016 12:30 Monitor Mode: External (Marita Magaña RN) Frequency (min): 1-2 (Marita Magaña, RN) Quality: Moderate (Marita Magaña, RN) Duration (sec): 40-140 (Marita Magaña, RN) Duration Criteria: Less than Two 120 Second Contractions (Marita Magaña, RN) Pattern: Normal: <= 5 Contractions in 10 Minutes (Marita Magaña, RN) Resting Tone (Palpate): Relaxed (Marita Magaña, RN) Monitor Mode: External US (Marita Magaña, RN) FHR Baseline Rate : 135 (Marita Magaña, RN) Variability: Moderate 6-25 bpm (Marita Magaña, RN) Accelerations: 10X10 (Marita Magaña, RN) Decelerations: Early (Maritajuan jose Magaña, RN) Datetime: 03/25/2016 12:20 Monitor Interventions for UA: [place] Adjusted (Marita Magaña, RN) Datetime: 03/25/2016 12:19 Patient Position/Activity: Birthing Ball (Marita Magaña, RN) Datetime: 03/25/2016 12:15 Monitor Mode: External (Marita Magaña RN) Frequency (min): 2-3 (Marita Magaña RN) Quality: Moderate (Marita Magaña RN) Duration (sec): 60-150 (Marita Magaña RN) Duration Criteria: Less than Two 120 Second Contractions (Marita Magaña RN) Pattern: Normal: <= 5 Contractions in 10 Minutes (Marita Magaña RN) Resting Tone (Palpate): Relaxed (Marita Magaña RN) Monitor Mode: External US (Marita Magaña RN) FHR Baseline Rate : 135 (Marita Magaña RN) Variability: Moderate 6-25 bpm (Marita Magaña RN) Accelerations: 10X10 (Marita Magaña RN) Decelerations: None (Marita Magaña, RN) Pitocin (milliunit): Pitocin Remains (milliunits) @ 4 (Marita Magaña, RN) Datetime: 03/25/2016 12:14 I/O Interventions: Up to BR (Marita Magaña, RN) Datetime: 03/25/2016 12:09 Patient Position/Activity: Hands-Knees (Marita Magaña, RN) Datetime: 03/25/2016 12:00 Monitor Mode: External (Marita Magaña RN) Frequency (min): 3-6 (Marita Magaña RN) Quality: Moderate (Marita Magaña RN) Duration (sec): 60-150 (Marita Magaña RN) Duration Criteria: Less than Two 120 Second Contractions (Marita Magaña RN) Pattern: Normal: <= 5 Contractions in 10 Minutes (Marita Magaña RN) Resting Tone (Palpate): Relaxed (Marita Magaña RN) Monitor Mode: External US (Marita Magaña RN) FHR Baseline Rate : 135 (Marita Magaña RN) Variability: Moderate 6-25 bpm (Marita Magaña RN) Accelerations: 10X10 (Marita Magaña RN) Decelerations: None (Marita Magaña RN) Pitocin (milliunit): Pitocin Increased to (milliunits) @ 4 (Marita Magaña RN) Datetime: 03/25/2016 11:45 Monitor Mode: External (Marita Magaña RN) Frequency (min): 3-6 (Marita Magaña RN) Quality: Moderate (Marita Magaña RN) Duration (sec): 60-150 (Marita Magaña RN) Duration Criteria: Less than Two 120 Second Contractions (Marita Magaña RN) Pattern: Normal: <= 5 Contractions in 10 Minutes (Marita Magaña RN) Resting Tone (Palpate): Relaxed (Marita Magaña RN) Monitor Mode: External US (Marita Magaña RN) FHR Baseline Rate : 135 (Marita Magaña RN) Variability: Moderate 6-25 bpm (Marita Magaña RN) Accelerations: 10X10 (Marita Magaña RN) Decelerations: None (Marita Magaña RN) Pitocin (milliunit): Pitocin Remains (milliunits) @ 2 (Marita Magaña RN) Datetime: 03/25/2016 11:30 Monitor Mode: External (Marita Magaña RN) Frequency (min): 2-6 (Marita Magaña RN) Quality: Moderate (Marita Magaña RN) Duration (sec): 40-150 (Mraita Magaña RN) Duration Criteria: Less than Two 120 Second Contractions (Marita Magaña RN) Pattern: Normal: <= 5 Contractions in 10 Minutes (Marita Magaña RN) Resting Tone (Palpate): Relaxed (Marita Magaña RN) Monitor Mode: External US (Marita Magaña RN) FHR Baseline Rate : 135 (Marita Magaña RN) Variability: Moderate 6-25 bpm (Marita Magaña RN) Accelerations: None (Marita Magaña RN) Decelerations: None (Marita Magaña RN) Pitocin (milliunit): Pitocin Started (milliunits) @ 2; Pitocin 20 Units in 1000ml NS (Marita Magaña RN) Datetime: 03/25/2016 11:28 Communication Comments: Orders to start Pitocin and increase every 30 minute per protocol per H. Taras CNM (Marita Magaña RN) Datetime: 03/25/2016 11:02 NBP Sys/Sandy/Mean (mmHg): 117 (QS system process) : 72 (QS system process) : 89 (QS system process) Pulse: 85 (QS system process) LaborFlag: Labor (QS system process) Datetime: 03/25/2016 11:00 Monitor Mode: External (Marita Magaña RN) Frequency (min): 4-7 (Marita Magaña RN) Quality: Moderate (Marita Magaña RN) Duration (sec): 70-180 (Marita Magaña RN) Duration Criteria: Less than Two 120 Second Contractions (Marita Magaña RN) Pattern: Normal: <= 5 Contractions in 10 Minutes (Marita Magaña RN) Resting Tone (Palpate): Relaxed (Marita Magaña RN) Monitor Mode: External US (Marita Magaña RN) FHR Baseline Rate : 135 (Marita Magaña RN) Variability: Moderate 6-25 bpm (Marita Magaña RN) Accelerations: 10X10 (Marita Magaña RN) Decelerations: None (Marita Magaña RN) Datetime: 03/25/2016 10:58 Membrane Comments: Ruptured forebag. Clear fluid (Marita Magaña RN) Communication Comments: H. Taras CNM at bedside (Marita Magaña RN) Datetime: 03/25/2016 10:46 Dilatation (cm): 6.0 (Marita Magaña RN) Effacement (%): 80 (Marita Magaña RN) Station: -1 (Marita Magaña RN) Exam by: Mikala Magaña RN (Marita Magaña RN) Datetime: 03/25/2016 10:41 Patient Position/Activity: Left Lateral (Marita Magaña, RN) Datetime: 03/25/2016 09:39 Communication Comments: Monitors removed. IV saline locked for pt to walk. (Marita Magaña, RN) Datetime: 03/25/2016 09:32 I/O Interventions: Up to BR (Marita Magaña, RN) Datetime: 03/25/2016 09:30 Monitor Mode: External (Marita Magaña, RN) Frequency (min): 3-6 (Marita Magaña RN) Quality: Moderate (Marita Magaña RN) Duration (sec): 50-200 (Marita Magaña RN) Duration Criteria: Less than Two 120 Second Contractions (Marita Magaña RN) Pattern: Normal: <= 5 Contractions in 10 Minutes (Marita Magaña RN) Resting Tone (Palpate): Relaxed (Marita Magaña RN) Monitor Mode: External US (Marita Magaña RN) FHR Baseline Rate : 135 (Marita Magaña RN) Variability: Moderate 6-25 bpm (Marita Magaña RN) Accelerations: 10X10 (Marita Magaña RN) Decelerations: None (Marita Magaña RN) Datetime: 03/25/2016 09:26 NBP Sys/Sandy/Mean (mmHg): 133 (QS system process) : 63 (QS system process) : 91 (QS system process) Pulse: 96 (QS system process) Respirations: 16 (Marita Magaña RN) Temperature (F): 98.0 (Marita Magaña RN) Temperature (C): 36.7 (QS system process) LaborFlag: Labor (QS system process) Datetime: 03/25/2016 09:00 Monitor Mode: External (Marita Gómez, RN) Frequency (min): 3-6 (Martiajuan jose Magaña, RN) Quality: Moderate (Marita Magaña, RN) Duration (sec): 50-150 (Marita Gómez, RN) Duration Criteria: Less than Two 120 Second Contractions (Marita Gómez, RN) Pattern: Normal: <= 5 Contractions in 10 Minutes (Marita Gómez, RN) Resting Tone (Palpate): Relaxed (Maritajuan jose Magaña, RN) Monitor Mode: External US (Marita Magaña, RN) FHR Baseline Rate : 140 (Marita Magaña, RN) Variability: Moderate 6-25 bpm (Marita Magaña, RN) Accelerations: None (Marita Magaña, RN) Decelerations: Early (Marita Gómez, RN) Datetime: 03/25/2016 08:31 Monitor Interventions for FHR: Ultrasound Adjusted (Marita Magaña, RN) Communication: RN at Bedside (Marita Magaña, RN) Datetime: 03/25/2016 08:30 Monitor Mode: External (Marita Magaña, RN) Frequency (min): 3-6 (Marita Magaña, RN) Quality: Moderate (Marita Magaña, RN) Duration (sec): 50-160 (Marita Magaña, RN) Duration Criteria: Less than Two 120 Second Contractions (Marita Magaña, RN) Pattern: Normal: <= 5 Contractions in 10 Minutes (Marita Magaña, RN) Resting Tone (Palpate): Relaxed (Marita Magaña, RN) Monitor Mode: External US (Marita Magaña, RN) FHR Baseline Rate : 135 (Marita Magaña, RN) Variability: Moderate 6-25 bpm (Marita Magaña, RN) Accelerations: 10X10 (Marita Magaña, RN) Decelerations: None (Marita Magaña, RN) Datetime: 03/25/2016 08:00 Monitor Mode: External (Marita Magaña, RN) Frequency (min): 3-6 (Marita Magaña, RN) Quality: Moderate (Marita Magaña, RN) Duration (sec): 50-140 (Marita Magaña, RN) Duration Criteria: Less than Two 120 Second Contractions (Marita Magaña, RN) Pattern: Normal: <= 5 Contractions in 10 Minutes (Marita Magaña, RN) Resting Tone (Palpate): Relaxed (Marita Magaña, RN) Monitor Mode: External US (Marita Magaña, RN) FHR Baseline Rate : 135 (Marita Magaña, RN) Variability: Moderate 6-25 bpm (Marita Magaña, RN) Accelerations: 15X15 (Marita Magaña, RN) Decelerations: None (Marita Magaña, RN) Datetime: 03/25/2016 07:54 Patient Position/Activity: Birthing Ball (Marita Magaña, RN) Datetime: 03/25/2016 07:37 Monitor Interventions for UA: [place] Adjusted (Marita Magaña, RN) Datetime: 03/25/2016 07:36 Patient Position/Activity: Left Tilt (Marita Magaña, RN) Datetime: 03/25/2016 07:30 Monitor Mode: External (Marita Magaña RN) Frequency (min): 3-8 (Marita Magaña RN) Quality: Moderate (Marita Magaña RN) Duration (sec): 50-120 (Marita Magaña RN) Duration Criteria: Less than Two 120 Second Contractions (Marita Magaña RN) Pattern: Normal: <= 5 Contractions in 10 Minutes (Marita Magaña RN) Resting Tone (Palpate): Relaxed (Marita Magaña RN) Monitor Mode: External US (Marita Magaña RN) FHR Baseline Rate : 135 (Marita Magaña RN) Variability: Moderate 6-25 bpm (Marita Magaña RN) Accelerations: None (Marita Magaña RN) Decelerations: None (Marita Magaña RN) Pain Scale: 4 (Marita Magaña RN) Pain Presence: Intermittent (Marita Magaña RN) Pain Type: Contraction (Marita Magaña RN) Pain Location: Abdomen (Marita Magaña RN) Pain Relief Measures: Comfort Measures (Marita Magaña RN) Pain Coping: Talking Through Contractions (Marita Magaña RN) LaborFlag: Labor (QS system process) Datetime: 03/25/2016 07:28 Level of Consciousness: Fully Conscious (Marita Magaña RN) DTR's/Clonus: DTRs 2+; No Clonus (Marita Magaña RN) Headache: Denies (Marita Magaña, RN) Breath Sounds, Left: Clear and Equal (Marita Magaña, RN) Breath Sounds, Right: Clear and Equal (Marita Magaña, RN) Nausea/Vomiting: Denies (Marita Magaña, RN) RUQ Epigastric Pain: Denies (Marita Gómez, RN) Datetime: 03/25/2016 07:21 I/O Interventions: Up to BR (Marita Magaña, RN) Datetime: 03/25/2016 07:15 Communication Comments: bedside report to A Magaña RN, care relinquished (Dahiana Tracy, RN) Datetime: 03/25/2016 07:02 Comments: excessive audible and visual movement (Dahiana Rossana, RN) Datetime: 03/25/2016 07:01 IV/Blood Work: IV Bolus Started (Dahiana Rossana, RN) Patient Care Comments: d5LR bolus started per orders from Dr Suero (Dahiana Rossana, RN) Datetime: 03/25/2016 07:00 Monitor Mode: External (Dahiana Rossana, RN) Frequency (min): 2-6 (Dahiana Rossana, RN) Quality: Moderate to Strong (Dahiana Rossana, RN) Duration (sec): 60-180 (Dahiana Rossana, RN) Resting Tone (Palpate): Relaxed (Dahiana Rossana, RN) Monitor Mode: External US (Dahiana Rossana, RN) FHR Baseline Rate : 135 (Dahiana Rossana, RN) Variability: Moderate 6-25 bpm (Dahiana Rossana, RN) Accelerations: None (Dahiana Rossana, RN) Decelerations: None (Dahiana Tracy RN)
[2016-03-26] MEDS: IBUPROFEN 800 MG TABLET PO SCH ×3 (05:15→21:49)
--- NOTE | 2016-03-26 06:21 | L&D Current Admission ---
Current Admit Datetime Report Generated by CPN: 03/26/2016 06:00 ADMISSION INFORMATION Reason for Admission: Rupture of Membranes (03/25/2016 06:15:Dahiana Tracy RN) Chief Complaint: Suspected Rupture of Membranes (03/25/2016 06:15:Dahiana Tracy RN) Medications During : Ferrous Sulfate (Iron); Vitamin (03/25/2016 06:15:Dahiana Tracy RN) Method of Arrival: Wheelchair (03/25/2016 06:15:Dahiana Tracy RN) Reason for Induction: Not Applicable (03/25/2016 06:15:Dahiana Tracy RN) Records Available: Yes (03/25/2016 06:15:Dahiana Tracy RN) General Admission Information: Reviewed; Updated; Confirmed (03/25/2016 06:15:Dahiana Tracy RN) General Admission Reviewed By: Prakash Tracy RN (03/25/2016 06:15:Dahiana Tracy RN) BELONGINGS/ADVANCED DIRECTIVES Other Belongings: see [facility] belongings form (03/25/2016 06:15:Dahiana Tracy RN) Advance Direct for Healthcare: No, but Requests Information (03/25/2016 06:15:Dahiana Tracy RN) Durable Power of Medical Lab Technologist: No (03/25/2016 06:15:Dahiana Tracy RN) Living Will: No (03/25/2016 06:15:Dahiana Tracy RN) Organ Donor: Yes (03/25/2016 06:15:Dahiana Tracy RN) Pt Rights Information Given: Yes (03/25/2016 06:15:Dahiana Tracy RN) Pt Understands Pt Rights: No (03/25/2016 06:15:Dahiana Tracy RN) LEARNING ASSESSMENT Knowledge Level: Understands L_D Process; Understands Diagnosis (03/25/2016 06:15:Dahiana Tracy RN) Barriers to Learning: Emotional State; Pain (03/25/2016 06:15:Dahiana Tracy RN) Learning Readiness: Motivated (03/25/2016 06:15:Dahiana Tracy RN) Learns Best By: 1 to 1 Instruction (03/25/2016 06:15:Dahiana Tracy RN) Learning Needs: Labor and Delivery Process; Pain Management; Symptoms to Report; Treatment Plan; Medication; Diagnosis; Equipment (03/25/2016 06:15:Dahiana Tracy RN) DOMESTIC VIOLANCE SCREENING Dom Viol Threatened/Hurt: No (03/25/2016 06:15:Dahiana Tracy RN) Hx of Abuse/Neglect past 2yrs: No (03/25/2016 06:15:Dahiana Tracy RN) Feel Unsafe Going Home: No (03/25/2016 06:15:Dahiana Tracy RN) Addt'l Observ Indicating Abuse: No (03/25/2016 06:15:Dahiana Tracy RN) Reason Unable to Complete Screen: N/A, Screen Completed (03/25/2016 06:15:Dahiana Tracy RN) Considered Personal Harm/Suicide: No (03/25/2016 06:15:Dahiana Tracy RN) NUTRITIONAL/FUNCTIONAL SCREENING Problem with Appetite >5 Days: No (03/25/2016 06:15:Dahiana Tracy RN) Chew/Swallow Difficulties: No (03/25/2016 06:15:Dahiana Tracy RN) Inappropriate Wt Gain/Loss: No (03/25/2016 06:15:Dahiana Tracy RN) Presence Skin Breakdown/Ulcer: No (03/25/2016 06:15:Dahiana Tracy RN) Special Diet: No (03/25/2016 06:15:Dahiana Tracy RN) Pt Requests Loss Prevention Agent Visit: No (03/25/2016 06:15:Dahiana Tracy RN) Hx of Any of the Following?: N/A (03/25/2016 06:15:Dahiana Tracy RN) New Diagnosis of: N/A (03/25/2016 06:15:Dahiana Tracy RN) Requires Assist w/Ambulation: No (03/25/2016 06:15:Dahiana Tracy RN) Uses Assist Device to Ambulate: No (03/25/2016 06:15:Dahiana Tracy RN) Pt Requires Help w/ADL's: No (03/25/2016 06:15:Dahiana Tracy RN)
--- NOTE | 2016-03-26 06:21 | L&D General Admission ---
General Admit Datetime Report Generated by CPN: 03/26/2016 06:00 INFORMATION Patient Age: 25 (03/09/2016 22:02:QS system process) EDC: 03/27/2016 00:00 (03/09/2016 22:04:Mikayla Carr RN) : 2 (03/09/2016 22:07:Rosamaria Coffman RN) Para: 1 (03/11/2016 14:34:Elida Gonzalez RN) Term: 1 (03/09/2016 22:04:Mikayla Carr RN) : 0 (03/09/2016 22:04:Mikayla Carr RN) Spontaneous Abortions: 0 (03/09/2016 22:04:Mikayla Carr RN) Induced Abortions: 0 (03/09/2016 22:04:Mikayla Carr RN) Livin (03/09/2016 22:04:Mikayla Carr RN) Cesareans: 0 (03/09/2016 22:04:Mikayla Carr RN) VBACs: 0 (03/09/2016 22:04:Mikayla Carr RN) Ectopic: 0 (03/09/2016 22:04:Mikayla Carr RN) Multiple Births: 0 (03/09/2016 22:04:Mikayla Carr RN) Baby, Number in Womb: 1 (03/23/2016 22:49:Mikayla Carr RN) CARE Primary Hazard Waste Handler: [facility] (03/09/2016 22:07:Rosamaria Coffman RN) Adequate Care: Yes (03/09/2016 22:07:Rosamaria Coffman RN) Height (in): 75 (03/25/2016 05:58:QS system process) ALLERGIES Medication Allergy: No (03/09/2016 22:07:Rosamaria Coffman RN) Medication Allergies: No Known Allergies (03/23/2016) (03/23/2016 21:06:QS system process) Latex Allergy: No Latex Allergies (03/09/2016 22:07:Rosamaria Coffman RN) Food Allergies: NA (03/09/2016 22:07:Rosamaria Coffman RN) Environmental Allergies: NA (03/09/2016 22:07:Rosamaria Coffman RN) COMMUNICATION Primary Language: Dominican (03/09/2016 22:07:Rosamaria Coffman RN) Medical Tx Preferred Language: Dominican (03/09/2016 22:04:Mikayla Carr RN) Communication Barrier(s): None (03/09/2016 22:04:Mikayla Carr RN) DEMOGRAPHICS Address: [address] [place] [id number] (03/09/2016 22:02:QS system process) Zipcode: [address] (03/09/2016 22:02:QS system process) Home (03/09/2016 22:02:QS system process) SSN: [id number] (03/09/2016 22:02:QS system process) Next of Kin Name: PABLITO BURNHAM (03/11/2016 10:06:QS system process) Next of Kin (03/11/2016 10:06:QS system process) Next of Kin Relationship: SPO (03/11/2016 10:06:QS system process) Date of : 1990 (03/09/2016 22:02:QS system process) Marital Status: (03/09/2016 22:02:QS system process) Sex: Female (03/09/2016 22:02:QS system process) Race: (03/09/2016 22:02:QS system process) Ethnicity: Non- or (03/09/2016 22:02:QS system process) Taoist: None (03/09/2016 22:02:QS system process) DRUG AND ALCOHOL USE Alcohol: No (03/09/2016 22:07:Rosamaria Coffman RN) Cigarettes: Never Smoker. [id number] (03/09/2016 22:07:Rosamaria Coffman RN) Marijuana: No (03/09/2016 22:07:Rosamaria Coffamn RN) Cocaine: No (03/09/2016 22:07:Rosamaria Coffman RN) Other Illicit Drugs: No (03/09/2016 22:07:Rosamaria Coffman RN) VACCINE HISTORY Influenza Vaccine: Yes (03/09/2016 22:07:Elida Gonzalez RN) Pneumococcal Vaccine: No (03/09/2016 22:07:Rosamaria Coffman RN) Tetanus Vaccine: No (03/09/2016 22:07:Rosamaria Coffman RN) Tdap Vaccine: No (03/09/2016 22:07:Rosamaria Coffman RN) Hepatitis B Vaccine: No (03/09/2016 22:07:Rosamaria Coffman RN) Client Success Director: [facility] (03/09/2016 22:07:Rosamaria Coffman RN) Feeding Preference: Breast (03/09/2016 22:07:Rosamaria Coffman RN) Benefit of Breast Feed Discussed: Yes (03/09/2016 22:07:Rosamaria Coffman RN) Circumcision: N/A (03/09/2016 22:07:Rosamaria Coffman RN) Classes Attended: No (03/09/2016 22:07:Rosamaria Coffman RN) Tubal Ligation: No (03/09/2016 22:07:Rosamaria Coffman RN) Tubal Authorization Signed: N/A (03/09/2016 22:07:Rosamaria Coffman RN) Consent: N/A (03/09/2016 22:07:Rosamaria Coffman RN) Consent Signed: N/A (03/09/2016 22:07:Rosamaria Coffman RN) Pain Management Plans: Natural (03/09/2016 22:07:Rosamaria Coffman RN) Plans for Labor and Delivery: Plan (03/09/2016 22:07:Rosamaria Coffman RN) Support Person: Pablito Burnham (03/09/2016 22:07:Rosamaria Coffman RN) Support Person Relationship: (03/09/2016 22:07:Rosamaria Coffman RN) Cultural/Spritual Practice: No (03/09/2016 22:07:Rosamaria Coffman RN) Spir/Cult Dietary Needs: No (03/09/2016 22:07:Rosamaria Coffman RN) LIVING SITUATION/DISCHARGE PLAN Living Arrangements: House (03/09/2016 22:07:Rosamaria Coffman RN) Adequate Access to:: Electric; Heat; Refrigeration; Plumbing/Running water; Phone; Transportation (03/09/2016 22:07:Rosamaria Coffman RN) WIC Program: Yes (03/09/2016 22:07:Rosamaria Coffman RN) Discharge Store Management Trainee Person: Pablito Burnham (03/09/2016 22:07:Rosamaria Coffman RN) Person to Help after Discharge: Pablito Burnham (03/09/2016 22:07:Rosamaria Coffman RN) Currently Using Commun Resources: Yes (03/09/2016 22:07:Rosamaria Coffman RN) Specify Current Resource Used: Medicaid (03/09/2016 22:07:Rosamaria Coffman RN) Outside Agency/Supervisor Fleshing: Yes (03/09/2016 22:07:Rosamaria Coffman RN) Car Seat for Discharge: Yes (03/09/2016 22:07:Rosamaria Coffman RN) Adoption Requested: No (03/09/2016 22:07:Rosamaria Coffman RN) Pt Contact w/ Post : N/A (03/09/2016 22:07:Rosamaria Coffman RN) LABS Blood Type: B Positive (03/09/2016 22:07:Elida Gonzalez RN) Antibody Screen: neg (03/09/2016 22:07:Elida Gonzalez RN) Hemoglobin: 11.2 L (03/25/2016 06:14:QS system process) Hematocrit: 36.0-47.0 % (03/26/2016 06:20:QS system process) MCV: 79 L (03/25/2016 06:14:QS system process) Group Beta Strep: neg (03/09/2016 22:07:Elida Gonzalez RN) Gonorrhea: Negative (03/09/2016 22:07:Dahiana Tracy RN) Chlamydia: Negative (03/09/2016 22:07:Dahiana Tracy RN) RPR/VDRL: Nonreactive (03/09/2016 22:07:Elida Gonzalez RN) HIV Exposure Test: Negative (03/09/2016 22:07:Elida Gonzalez RN) HIV Results: non-reactive (03/09/2016 22:07:Cele Gardner RN) Hepatitis B: Negative (03/09/2016 22:07:Cele Gardner RN) Rubella: Immune (Annotations: Data stored by N on behalf of user) (03/09/2016 22:07:Cele Gardner RN) Varicella: Non Susceptible (03/09/2016 22:07:Cele Gardner RN) OB/PREVIOUS HISTORY Previous Procedures: Ultrasound (03/09/2016 22:07:Rosamaria Coffman RN) Current Procedures: Ultrasound; NST (03/09/2016 22:07:Rosamaria Coffman RN) History of Previous : No (03/09/2016 22:07:Rosamaria Coffman RN) History of Gestational Diabetes: No (03/09/2016 22:07:Rosamaria Coffman RN) History of PIH: No (03/09/2016 22:07:Rosamaria Coffman RN) History of Incompetent Cervix: No (03/09/2016 22:07:Rosamaria Coffman RN) History of Placenta Previa/Abrup: No (03/09/2016 22:07:Rosamaria Coffman RN) History of Macrosomia: No (03/09/2016 22:07:Rosamaria Coffman RN) History of IUGR: No (03/09/2016 22:07:Rosamaria Coffman RN) History of Hemorrhage: No (03/09/2016 22:07:Rosamaria Coffman RN) History of Loss/Stillborn: No (03/09/2016 22:07:Rosamaria Coffman RN) History of : No (03/09/2016 22:07:Rosamaria Coffman RN) History of D (Rh) Sensitization: No (03/09/2016 22:07:Rosamaria Coffman RN) History Recurrent Loss/Stillborn: No (03/09/2016 22:07:Rosamaria Coffman RN) History Depression/PP Depression: No (03/09/2016 22:07:Rosamaria Coffman RN) History of Uterine Anomaly/NINA: No (03/09/2016 22:07:Rosamaria Coffman RN) History of Infertility: No (03/09/2016 22:07:Rosamaria Coffman RN) History of ART Treatment: No (03/09/2016 22:07:Rosamaria Coffman RN) History of NINA: No (03/09/2016 22:07:Rosamaria Coffman RN) Comments Obstetrical History: G1: 2008 male 7 lb 14 oz G2: current (03/09/2016 22:07:Dahiana Tracy RN) MEDICAL HISTORY Med Hx Diabetes: No (03/09/2016 22:07:Rosamaria Coffman RN) Med Hx Hypertension: No (03/09/2016 22:07:Rosamaria Coffman RN) Med Hx Heart Disease: No (03/09/2016 22:07:Rosamaria Coffman RN) Med Hx Autoimmune Disorder: No (03/09/2016 22:07:Rosamaria Coffman RN) Med Hx Kidney Disease/UTI: No (03/09/2016 22:07:Rosamaria Coffman RN) Med Hx Neurologic/Epilepsy: No (03/09/2016 22:07:Rosamaria Coffman RN) Med Hx Psychiatric Disorders: No (03/09/2016 22:07:Rosamaria Coffman RN) Med Hx Hepatitis/Liver Disease: No (03/09/2016 22:07:Rosamaria Coffman RN) Med Hx Varicosities/Phlebitis: No (03/09/2016 22:07:Rosamaria Coffman RN) Med Hx Thyroid Dysfunction: No (03/09/2016 22:07:Rosamaria Coffman RN) Med Hx Trauma/Violence: No (03/09/2016 22:07:Rosamaria Coffman RN) Med Hx Blood Transfusion: No (03/09/2016 22:07:Rosamaria Coffman RN) Med Hx Pulmonary (Asthma,TB): No (03/09/2016 22:07:Rosamaria Coffman RN) Med Hx Breast: No (03/09/2016 22:07:Rosamaria Coffman RN) Med Hx VICE PRESIDENT OF RECRUITING Surgery: No (03/09/2016 22:07:Rosamaria Coffman RN) Med Hx Hospitalization/Surgery: Yes (03/09/2016 22:07:Dahiana Tracy RN) Med Hx Anesthetic Complications: No (03/09/2016 22:07:Rosamaria Coffman RN) Med Hx Abnormal Pap Smear: Yes (03/09/2016 22:07:Dahiana Tracy RN) Other Medical Diseases: No (03/09/2016 22:07:Rosamaria Coffman RN) Med Hx Significant Family Hx: No (03/09/2016 22:07:Rosamaria Coffman RN) Details of Med/Surg Hx: hospitalization childbirth, hx abn pap? (03/09/2016 22:07:Dahiana Tracy RN) INFECTIOUS HISTORY Inf Hx Gonorrhea: No (03/09/2016 22:07:Rosamaria Coffman RN) Inf Hx Chlamydia: Yes (03/09/2016 22:07:Rosamaria Coffman RN) Inf Hx Syphilis: No (03/09/2016 22:07:Rosamaria Coffman RN) Inf Hx HIV/AIDS: No (03/09/2016 22:07:Rosamaria Coffman RN) Inf Hx Human Papilloma Virus: No (03/09/2016 22:07:Rosamaria Coffman RN) Inf Hx Pt/Partner Genital Herpes: No (03/09/2016 22:07:Rosamaria Coffman RN) Inf Hx Tuberculosis/Exposure: No (03/09/2016 22:07:Rosamaria Coffman RN) Inf Hx Hepatitis B,C: No (03/09/2016 22:07:Rosamaria Coffman RN) Inf Hx Rash or Viral Illness: No (03/09/2016 22:07:Rosamaria Coffman RN) Details of Infectious Hx: 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) and negative GAURI BV in G2 (03/09/2016 22:07:Dahiana Tracy RN) GENETIC HISTORY Gen Hx Age >=35 at SHARON: No (03/09/2016 22:07:Rosamaria Coffman RN) Gen Hx Thalassemia: No (03/09/2016 22:07:Rosamaria Coffman RN) Gen Hx Congenital Heart Defect: No (03/09/2016 22:07:Rosamaria Coffman RN) Gen Hx Neural Tube Defect: No (03/09/2016 22:07:Rosamaria Coffman RN) Gen Hx Down's Syndrome: No (03/09/2016 22:07:Rosamaria Coffman RN) Gen Hx Yobani-Sachs: No (03/09/2016 22:07:Rosamaria Coffman RN) Gen Hx Ghulam: No (03/09/2016 22:07:Rosamaria Coffman RN) Gen Hx Familial Dysautonomia: No (03/09/2016 22:07:Rosamaria Coffman RN) Gen Hx Sickle Cell Disease/Trait: No (03/09/2016 22:07:Rosamaria Coffman RN) Gen Hx Hemophilia/Blood Disorder: No (03/09/2016 22:07:Rosamaria Coffman RN) Gen Hx Muscular Dystrophy: No (03/09/2016 22:07:Rosamaria Coffman RN) Gen Hx Cystic Fibrosis: No (03/09/2016 22:07:Rosamaria Coffman RN) Gen Hx Huntingtons Chorea: No (03/09/2016 22:07:Rosamaria Coffman RN) Gen Hx Mental Retardation/Autism: No (03/09/2016 22:07:Rosamaria Coffman RN) Gen Hx Tested for Fragile X: No (03/09/2016 22:07:Rosamaria Coffman RN) Gen Hx Other Inher/Chromosomal: No (03/09/2016 22:07:Rosamaria Coffman RN) Gen Hx Maternal Metabolic DO: No (03/09/2016 22:07:Rosamaria Coffman RN) Gen Hx Pt Father or FOB Defect: No (03/09/2016 22:07:Rosamaria Coffman RN) Gen Hx Other Genetic History: No (03/09/2016 22:07:Rosamaria Coffman RN) Gen Hx Drugs/Meds since LMP: Yes (03/09/2016 22:07:Dahiana Tracy RN) Gen Hx Medications: , iron, abx for chlam treatment (03/09/2016 22:07:Dahiana Tracy RN)
--- NOTE | 2016-03-26 06:24 | L&D Care Plan ---
LD CARE PLANS Datetime Report Generated by CPN: 03/26/2016 06:15 Datetime: 03/25/2016 06:00 Pain State: Risk For (Cele Gardner RN) Related To: Labor and Delivery Process; Complication(s) of (Cele Gardner RN) Goal(s): Patients Pain will be Assessed and Managed; Patient will Verbalize Adequate Relief of Pain or the Ability to [place] with Current Pain (Cele Gardner RN) Interventions: Assess Pain Severity on Scale of 0 (None) to 5 (Severe); Assess Type, Location and Intensity of Pain Each Time Client Reports Discomfort and Notify Provider if Unusal Pain Develops; Encourage Proper Breathing and Relaxation Techniques; Offer Alternatives Such as Repositioning, Calm Environment, Massages, Diversional Activities, Ice Pack, Splinting, and Ambulation; Administer Analgesics as Ordered; Assist with Epidural Placement as Appropriate; Evaluate Therapeutic Effectiveness of Medication and Treatments (Cele Gardner RN) Outcome: Patient will Report Absence or Relief of Pain Consistent with Established Pain Goal (Cele Gardner RN) Outcome: Patient will have a Decrease in Signs and Symptoms of Discomfort (Cele Gardner RN) Outcome: Pain will be Controlled During Procedures (Cele Gardner RN) Anxiety State: Risk For (Cele Gardner RN) Related To: Perceived or Actual Threat to ; Situational Crisis (Cele Gardner RN) Goal(s): Patient will have Decreased Anxiety and be able to Function at Acceptable Levels (Cele Gardner RN) Interventions: Assess Verbal and Nonverbal Behavioral Indicators of Anxiety; Assist Patient to Identify and Verbalize Symptoms of Anxiety; Identify and Demonstrate Techniques to Control Anxiety; Assist Patient with Coping Mechanisms to Manage Anxiety; Provide Theraputic Touch for the Patient; Explain to Patient, Using a Calm Reassuring Approach and Nonmedical Terms, All Activities, Procedures, and Concerns; Instruct Patient and Family about Post Discharge Care, Limitations, Symptoms to Report and Resources Available (Cele Gardner RN) Outcome: Patient will Identify, Verbalize and Demonstrate Techniques to Control Anxiety (Cele Gardner RN) Outcome: Patient's Posture, Facial Expressions, Gestures and Activity Level will Reflect Decreased Anxiety (Cele Gardner RN) Outcome: Patient will Verbalize a Sense of Control and/or Acceptance of the Situation (Cele Gardner RN) Outcome: Patient will Identify and Utilize Support Person (Cele Gardner RN) Knowledge Deficit State: Risk For (Cele Gardner RN) Related To: Treatment and Procedures; Impending Alterations in Family Dynamics (Cele Gardner RN) Goal(s): Patient will Accurately Verbalize Understanding of Plan of Care and Treatment; Patient and Family will Accurately Verbalize Understanding of the Disease Process (Cele Gardner RN) Interventions: Assess Motivation and Willingness of Patient/Family to Learn; Assess Preferred Learning Mode: One to One Instruction, Reading, Videos, Group Discussion or Demonstration; Assess Barriers to Learning: Pain, Emotional State, Language Barrier, Cognitive Impairment, Visual or Hearing Deficits; Assess Patient and Family Knowledge of Disease Process, Medications and Treatment; Discuss Therapy and/or Treatment Options, Describe Rationale Behind Management, Therapy and Treatment Recommendations; Instruct Patient and Family on Signs and Symptoms to Report; Instruct Patient and Family on Medication Effects and Side Effects; Provide Appropriate and Timely Education Using Multiple Techniques; Provide Patient and Family with Support Group Information and Resources; Give Clear and Thorough Explanations and Demonstrations (Cele Gardner RN) Outcome: Patient and Family will Verbalize Understanding of Condition, Treatment and Signs and Symptoms to Report (Cele Gardner RN) Outcome: Patient will Identify Perceived Learning Needs and Express Motivation to Learn (Cele Gardner RN) Outcome: Patient will Verbalize Understanding of Desired Content, and/or Performs Desired Skill Prior to Discharge (Cele Gardner RN) Fluid Volume State: Risk For (Cele Gardner RN) Related To: Prolonged Labor or Induction (Cele Gardner RN) Goal(s): Patient will Achieve and Maintain a Balanced Fluid Volume Status; Hemodynamically Stable (Ceel Gardner RN) Interventions: Monitor Vital Signs; Auscultate Breath Sounds; Monitor Patient for Skin Turgor, Mucous Membranes, Dry Skin, Weakness, Headaches and Confusion; Provide Oral Fluids as Ordered; Initiate and Maintain Intravenous Fluids as Ordered; Monitor Intake and Output as Indicated Per Patient Status; Accurately Measure Blood Loss; Monitor Lab and Test Results as Obtained and Notify Provider of Abnormal Findings; Monitor Patient's Weight (Cele Gardner RN) Outcome: Patient will have Clear Lung Sounds (Cele Gardner RN) Outcome: Patient will have Vital Signs within Expected Range (Cele Gardner RN) Outcome: Urine Output will be within Expected Range (Cele Gardner RN) Outcome: Patient will have Minimal Generalized or Upper Extremity Edema (Cele Gardner RN) Injury State: Risk For (Cele Gardner RN) Related To: Labor and Delivery Process; Anesthesia; Uteroplacental Perfusion (Cele Gardner RN) Goal(s): Patient will Remain Free from Injury (Cele Gardner RN) Interventions: Monitoring as per Hospital Protocol; Assess Neurological Status; Perform Risk Assessment of Patients with Induction and ; Perform Fall Risk Assessment and Prevention per Hospital Protocol; Perform DVT Risk Assessment and Prophylaxis per Hospital Protocol; Ensure that Oxygen, Suction, and Resuscitation Medications and Equipment are Readily Available; Confirm Patient ID Prior to Procedure(s) and Medication Administration per Hospital Policy (Cele Gardner RN) Outcome: Successful Fall Risk Prevention (Cele Gardner RN) Outcome: Patient will Deliver without Adverse Sequela (Cele Gardner RN) Outcome: Patient's Neurological Status will Remain Stable (Cele Gardner RN)
[2016-03-26 08:00] LABS: HEMATOCRIT 30.5 % (36.0-47.0); HGB HCT DIFFERENCE -0.5; MEAN CORPUSCULAR HEMOGLOBIN 26.3 pg (27.0-33.4); MEAN CORPUSCULAR HGB CONC 32.7 g/dL (32.0-36.0); MEAN CORPUSCULAR VOLUME 80 fl (80-97); RED CELL DISTRIBUTION WIDTH 18.3 % (11.5-14.0); WHITE BLOOD COUNT 12.6 10^3/uL (4.0-10.5)
[2016-03-26] MEDS: DOCUSATE SODIUM 100 MG CAPSULE PO SCH ×2 (09:21→18:25)
[2016-03-26] MEDS: SENNOSIDES/DOCUSATE 8.6-50 MG 1 EACH TABLET PO SCH (09:21)
[2016-03-26] MEDS: FERROUS SULFATE 325 MG TABLET PO SCH ×2 (09:21→18:25)
[2016-03-26] MEDS: PRENATAL VITAMIN W-O CA NO5/FE FUMARATE/FA CAPSULE PO SCH (09:21)
--- NOTE | 2016-03-26 10:50 | PDOC PROGRESS REPORT ---
Subjective-OB Subjective: Post Delivery Day: 1 25 year old. Denies any needs at this time, states lochia is stable, tolerating diet, voiding without difficulty. Physical Exam (OB) Vital Signs: Temp Pulse Resp BP Pulse Ox 98.0 F 91 16 121/69 99 03/26/16 07:53 03/26/16 07:53 03/26/16 07:53 03/26/16 07:53 03/25/16 19:59 Intake & Output 03/25/16 03/26/16 03/27/16 06:59 06:59 06:59 Intake Total 1000 Balance 1000 Weight 81.7 kg - Lochia Lochia Amount: Small 10-25 ml Lochia Color: Rubra/Red - Abdomen Description: Tender, Soft, Round Hernia Present: No Fundal Description: Firm, Midline Fundal Height: u/u - u/2 Objective-Diagnostic Laboratory: 03/26/16 07:42 03/26/16 07:42 WBC 12.6 H RBC 3.80 Hgb 10.0 L Hct 30.5 L MCV 80 MCH 26.3 L MCHC 32.7 RDW 18.3 H Plt Count 253 Assessment and Plan(PN) - Assessment and Plan (1) Vaginal delivery Is this a current diagnosis for this admission?: YesPlan: rotuine pp care (2) Acute blood loss anemia Is this a current diagnosis for this admission?: YesPlan: ferrous sulfate increase dietary iron - Time Spent with Patient Time with patient: Less than 15 minutes Critical Time spent with patient: Less than 15 minutes Medications reviewed and adjusted accordingly: Yes - Disposition Anticipated Discharge: Home Within: within 48 hours
[2016-03-27] MEDS: IBUPROFEN 800 MG TABLET PO SCH (05:57)
--- NOTE | 2016-03-27 06:22 | L&D General Admission ---
General Admit Datetime Report Generated by CPN: 03/27/2016 06:00 INFORMATION Patient Age: 25 (03/09/2016 22:02:QS system process) EDC: 03/27/2016 00:00 (03/09/2016 22:04:Mikayla Carr RN) : 2 (03/09/2016 22:07:Rosamaria Coffman RN) Para: 1 (03/11/2016 14:34:Elida Gonzalez RN) Term: 1 (03/09/2016 22:04:Mikayla Carr RN) : 0 (03/09/2016 22:04:Mikayla Carr RN) Spontaneous Abortions: 0 (03/09/2016 22:04:Mikayla Carr RN) Induced Abortions: 0 (03/09/2016 22:04:Mikayla Carr RN) Livin (03/09/2016 22:04:Mikayla Carr RN) Cesareans: 0 (03/09/2016 22:04:Mikayla Carr RN) VBACs: 0 (03/09/2016 22:04:Mikayla Carr RN) Ectopic: 0 (03/09/2016 22:04:Mikayla Carr RN) Multiple Births: 0 (03/09/2016 22:04:Mikayla Carr RN) Baby, Number in Womb: 1 (03/23/2016 22:49:Mikayla Carr RN) CARE Primary Watershed Manager: [facility] (03/09/2016 22:07:Rosamaria Coffman RN) Adequate Care: Yes (03/09/2016 22:07:Rosamaria Coffman RN) Height (in): 75 (03/25/2016 05:58:QS system process) ALLERGIES Medication Allergy: No (03/09/2016 22:07:Rosamaria Coffman RN) Medication Allergies: No Known Allergies (03/23/2016) (03/23/2016 21:06:QS system process) Latex Allergy: No Latex Allergies (03/09/2016 22:07:Rosamaria Coffman RN) Food Allergies: NA (03/09/2016 22:07:Rosamaria Coffman RN) Environmental Allergies: NA (03/09/2016 22:07:Rosamaria Coffman RN) COMMUNICATION Primary Language: Beninese (03/09/2016 22:07:Rosamaria Coffman RN) Medical Tx Preferred Language: Beninese (03/09/2016 22:04:Mikayla Carr RN) Communication Barrier(s): None (03/09/2016 22:04:Mikayla Carr RN) DEMOGRAPHICS Address: [address] [place] [id number] (03/09/2016 22:02:QS system process) Zipcode: [address] (03/09/2016 22:02:QS system process) Home (03/09/2016 22:02:QS system process) SSN: [id number] (03/09/2016 22:02:QS system process) Next of Kin Name: PABLITO BURNHAM (03/11/2016 10:06:QS system process) Next of Kin (03/11/2016 10:06:QS system process) Next of Kin Relationship: SPO (03/11/2016 10:06:QS system process) Date of : 1990 (03/09/2016 22:02:QS system process) Marital Status: (03/09/2016 22:02:QS system process) Sex: Female (03/09/2016 22:02:QS system process) Race: (03/09/2016 22:02:QS system process) Ethnicity: Non- or (03/09/2016 22:02:QS system process) Anabaptism: None (03/09/2016 22:02:QS system process) DRUG AND ALCOHOL USE Alcohol: No (03/09/2016 22:07:Rosamaria Coffman RN) Cigarettes: Never Smoker. [id number] (03/09/2016 22:07:Rosamaria Coffman RN) Marijuana: No (03/09/2016 22:07:Rosamaria Coffman RN) Cocaine: No (03/09/2016 22:07:Rosamaria Coffman RN) Other Illicit Drugs: No (03/09/2016 22:07:Rosamaria Coffman RN) VACCINE HISTORY Influenza Vaccine: Yes (03/09/2016 22:07:Elida Gonzalez RN) Pneumococcal Vaccine: No (03/09/2016 22:07:Rosamaria Coffman RN) Tetanus Vaccine: No (03/09/2016 22:07:Rosamaria Coffman RN) Tdap Vaccine: No (03/09/2016 22:07:Rosamaria Coffman RN) Hepatitis B Vaccine: No (03/09/2016 22:07:Rosamaria Coffman RN) Microarray Specialist: [facility] (03/09/2016 22:07:Rosamaria Coffman RN) Feeding Preference: Breast (03/09/2016 22:07:Rosamaria Coffman RN) Benefit of Breast Feed Discussed: Yes (03/09/2016 22:07:Rosamaria Coffman RN) Circumcision: N/A (03/09/2016 22:07:Rosamaria Coffman RN) Classes Attended: No (03/09/2016 22:07:Rosamaria Coffman RN) Tubal Ligation: No (03/09/2016 22:07:Rosamaria Coffman RN) Tubal Authorization Signed: N/A (03/09/2016 22:07:Rosamaria Coffman RN) Consent: N/A (03/09/2016 22:07:Rosamaria Coffman RN) Consent Signed: N/A (03/09/2016 22:07:Rosamaria Coffman RN) Pain Management Plans: Natural (03/09/2016 22:07:Rosamaria Coffman RN) Plans for Labor and Delivery: Plan (03/09/2016 22:07:Rosamaria Coffman RN) Support Person: Pablito Burnham (03/09/2016 22:07:Rosamaria Coffman RN) Support Person Relationship: (03/09/2016 22:07:Rosamaria Coffman RN) Cultural/Spritual Practice: No (03/09/2016 22:07:Rosamaria Coffman RN) Spir/Cult Dietary Needs: No (03/09/2016 22:07:Rosamaria Coffman RN) LIVING SITUATION/DISCHARGE PLAN Living Arrangements: House (03/09/2016 22:07:Rosamaria Coffman RN) Adequate Access to:: Electric; Heat; Refrigeration; Plumbing/Running water; Phone; Transportation (03/09/2016 22:07:Rosamaria Coffman RN) WIC Program: Yes (03/09/2016 22:07:Rosamaria Coffman RN) Discharge Boiler Setter Person: Pablito Burnham (03/09/2016 22:07:Rosamaria Coffman RN) Person to Help after Discharge: Pablito Burnham (03/09/2016 22:07:Rosamaria Coffman RN) Currently Using Commun Resources: Yes (03/09/2016 22:07:Rosamaria Coffman RN) Specify Current Resource Used: Medicaid (03/09/2016 22:07:Rosamaria Coffman RN) Outside Agency/Silver Plater: Yes (03/09/2016 22:07:Rosamaria Coffman RN) Car Seat for Discharge: Yes (03/09/2016 22:07:Rosamaria Coffman RN) Adoption Requested: No (03/09/2016 22:07:Rosamaria Coffman RN) Pt Contact w/ Post : N/A (03/09/2016 22:07:Rosamaria Coffman RN) LABS Blood Type: B Positive (03/09/2016 22:07:Elida Gonzalez RN) Antibody Screen: neg (03/09/2016 22:07:Elida Gonzalez RN) Hemoglobin: 10.0 L (03/26/2016 07:42:QS system process) Hematocrit: 30.5 L (03/26/2016 07:42:QS system process) MCV: 80 (03/26/2016 07:42:QS system process) Group Beta Strep: neg (03/09/2016 22:07:Elida Gonzalez RN) Gonorrhea: Negative (03/09/2016 22:07:Dahiana Tracy RN) Chlamydia: Negative (03/09/2016 22:07:Dahiana Tracy RN) RPR/VDRL: Nonreactive (03/09/2016 22:07:Elida Gonzalez RN) HIV Exposure Test: Negative (03/09/2016 22:07:Elida Gonzalez RN) HIV Results: non-reactive (03/09/2016 22:07:Clee Gardner RN) Hepatitis B: Negative (03/09/2016 22:07:Cele Gardner RN) Rubella: Immune (Annotations: Data stored by N on behalf of user) (03/09/2016 22:07:Cele Gardner RN) Varicella: Non Susceptible (03/09/2016 22:07:Cele Gardner RN) OB/PREVIOUS HISTORY Previous Procedures: Ultrasound (03/09/2016 22:07:Rosamaria Coffman RN) Current Procedures: Ultrasound; NST (03/09/2016 22:07:Rosamaria Coffman RN) History of Previous : No (03/09/2016 22:07:Rosamaria Coffman RN) History of Gestational Diabetes: No (03/09/2016 22:07:Rosamaria Coffman RN) History of PIH: No (03/09/2016 22:07:Rosamaria Coffman RN) History of Incompetent Cervix: No (03/09/2016 22:07:Rosamaria Coffman RN) History of Placenta Previa/Abrup: No (03/09/2016 22:07:Rosamaria Coffman RN) History of Macrosomia: No (03/09/2016 22:07:Rosamaria Coffman RN) History of IUGR: No (03/09/2016 22:07:Rosamaria Coffman RN) History of Hemorrhage: No (03/09/2016 22:07:Rosamaria Coffman RN) History of Loss/Stillborn: No (03/09/2016 22:07:Rosamaria Coffman RN) History of : No (03/09/2016 22:07:Rosamaria Coffman RN) History of D (Rh) Sensitization: No (03/09/2016 22:07:Rosamaria Coffman RN) History Recurrent Loss/Stillborn: No (03/09/2016 22:07:Rosamaria Coffman RN) History Depression/PP Depression: No (03/09/2016 22:07:Rosamaria Coffman RN) History of Uterine Anomaly/NINA: No (03/09/2016 22:07:Rosamaria Coffman RN) History of Infertility: No (03/09/2016 22:07:Rosamaria Coffman RN) History of ART Treatment: No (03/09/2016 22:07:Rosamaria Coffman RN) History of NINA: No (03/09/2016 22:07:Rosamaria Coffman RN) Comments Obstetrical History: G1: 2008 male 7 lb 14 oz G2: current (03/09/2016 22:07:Dahiana Tracy RN) MEDICAL HISTORY Med Hx Diabetes: No (03/09/2016 22:07:Rosamaria Coffman RN) Med Hx Hypertension: No (03/09/2016 22:07:Rosamaria Coffman RN) Med Hx Heart Disease: No (03/09/2016 22:07:Rosamaria Coffman RN) Med Hx Autoimmune Disorder: No (03/09/2016 22:07:Rosamaria Coffman RN) Med Hx Kidney Disease/UTI: No (03/09/2016 22:07:Rosamaria Coffman RN) Med Hx Neurologic/Epilepsy: No (03/09/2016 22:07:Rosamaria Coffman RN) Med Hx Psychiatric Disorders: No (03/09/2016 22:07:Rosamaria Coffman RN) Med Hx Hepatitis/Liver Disease: No (03/09/2016 22:07:Rosamaria Coffman RN) Med Hx Varicosities/Phlebitis: No (03/09/2016 22:07:Rosamaria Coffman RN) Med Hx Thyroid Dysfunction: No (03/09/2016 22:07:Rosamaria Coffman RN) Med Hx Trauma/Violence: No (03/09/2016 22:07:Rosamaria Coffman RN) Med Hx Blood Transfusion: No (03/09/2016 22:07:Rosamaria Coffman RN) Med Hx Pulmonary (Asthma,TB): No (03/09/2016 22:07:Rosamaria Coffman RN) Med Hx Breast: No (03/09/2016 22:07:Rosamaria Coffman RN) Med Hx POT BUILDER Surgery: No (03/09/2016 22:07:Rosamaria Coffman RN) Med Hx Hospitalization/Surgery: Yes (03/09/2016 22:07:Dahiana Tracy RN) Med Hx Anesthetic Complications: No (03/09/2016 22:07:Rosamaria Coffman RN) Med Hx Abnormal Pap Smear: Yes (03/09/2016 22:07:Dahiana Tracy RN) Other Medical Diseases: No (03/09/2016 22:07:Rosamaria Coffman RN) Med Hx Significant Family Hx: No (03/09/2016 22:07:Rosamaria Coffman RN) Details of Med/Surg Hx: hospitalization childbirth, hx abn pap? (03/09/2016 22:07:Dahiana Tracy RN) INFECTIOUS HISTORY Inf Hx Gonorrhea: No (03/09/2016 22:07:Rosamaria Coffman RN) Inf Hx Chlamydia: Yes (03/09/2016 22:07:Rosamaria Coffman RN) Inf Hx Syphilis: No (03/09/2016 22:07:Rosamaria Coffman RN) Inf Hx HIV/AIDS: No (03/09/2016 22:07:Rosamaria Coffman RN) Inf Hx Human Papilloma Virus: No (03/09/2016 22:07:Rosamaria Coffman RN) Inf Hx Pt/Partner Genital Herpes: No (03/09/2016 22:07:Rosamaria Coffman RN) Inf Hx Tuberculosis/Exposure: No (03/09/2016 22:07:Rosamaria Coffmna RN) Inf Hx Hepatitis B,C: No (03/09/2016 22:07:Rosamaria Coffman RN) Inf Hx Rash or Viral Illness: No (03/09/2016 22:07:Rosamaria Coffman RN) Details of Infectious Hx: 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) and negative GAURI BV in G2 (03/09/2016 22:07:Dahiana Tracy RN) GENETIC HISTORY Gen Hx Age >=35 at SHARON: No (03/09/2016 22:07:Rosamaria Coffman RN) Gen Hx Thalassemia: No (03/09/2016 22:07:Rosamaria Coffman RN) Gen Hx Congenital Heart Defect: No (03/09/2016 22:07:Rosamaria Coffman RN) Gen Hx Neural Tube Defect: No (03/09/2016 22:07:Rosamaria Coffman RN) Gen Hx Down's Syndrome: No (03/09/2016 22:07:Rosamaria Coffman RN) Gen Hx Yobani-Sachs: No (03/09/2016 22:07:Rosamaria Coffman RN) Gen Hx Ghulam: No (03/09/2016 22:07:Rosamaria Coffman RN) Gen Hx Familial Dysautonomia: No (03/09/2016 22:07:Rosamaria Coffman RN) Gen Hx Sickle Cell Disease/Trait: No (03/09/2016 22:07:Rosamaria Coffman RN) Gen Hx Hemophilia/Blood Disorder: No (03/09/2016 22:07:Rosamaria Coffman RN) Gen Hx Muscular Dystrophy: No (03/09/2016 22:07:Rosamaria Coffman RN) Gen Hx Cystic Fibrosis: No (03/09/2016 22:07:Rosamaria Coffman RN) Gen Hx Huntingtons Chorea: No (03/09/2016 22:07:Rosamaria Coffman RN) Gen Hx Mental Retardation/Autism: No (03/09/2016 22:07:Rosamaria Coffman RN) Gen Hx Tested for Fragile X: No (03/09/2016 22:07:Rosamaria Coffman RN) Gen Hx Other Inher/Chromosomal: No (03/09/2016 22:07:Rosamaria Coffman RN) Gen Hx Maternal Metabolic DO: No (03/09/2016 22:07:Rosamaria Coffman RN) Gen Hx Pt Father or FOB Defect: No (03/09/2016 22:07:Rosamaria Coffman RN) Gen Hx Other Genetic History: No (03/09/2016 22:07:Rosamaria Coffman RN) Gen Hx Drugs/Meds since LMP: Yes (03/09/2016 22:07:Dahiana Tracy RN) Gen Hx Medications: , iron, abx for chlam treatment (03/09/2016 22:07:Dahiana Tracy RN)
--- NOTE | 2016-03-27 06:22 | L&D Current Admission ---
Current Admit Datetime Report Generated by CPN: 03/27/2016 06:00 ADMISSION INFORMATION Reason for Admission: Rupture of Membranes (03/25/2016 06:15:Dahiana Tracy RN) Chief Complaint: Suspected Rupture of Membranes (03/25/2016 06:15:Dahiana Tracy RN) Medications During : Ferrous Sulfate (Iron); Vitamin (03/25/2016 06:15:Dahiana Tracy RN) Method of Arrival: Wheelchair (03/25/2016 06:15:Dahiana Tracy RN) Reason for Induction: Not Applicable (03/25/2016 06:15:Dahiana Tracy RN) Records Available: Yes (03/25/2016 06:15:Dahiana Tracy RN) General Admission Information: Reviewed; Updated; Confirmed (03/25/2016 06:15:Dahiana Tracy RN) General Admission Reviewed By: Prakash Tracy RN (03/25/2016 06:15:Dahiana Tracy RN) BELONGINGS/ADVANCED DIRECTIVES Other Belongings: see [facility] belongings form (03/25/2016 06:15:Dahiana Tracy RN) Advance Direct for Healthcare: No, but Requests Information (03/25/2016 06:15:Dahiana Tracy RN) Durable Power of Child Abuse Worker: No (03/25/2016 06:15:Dahiana Tracy RN) Living Will: No (03/25/2016 06:15:Dahiana Tracy RN) Organ Donor: Yes (03/25/2016 06:15:Dahiana Tracy RN) Pt Rights Information Given: Yes (03/25/2016 06:15:Dahiana Tracy RN) Pt Understands Pt Rights: No (03/25/2016 06:15:Dahiana Tracy RN) LEARNING ASSESSMENT Knowledge Level: Understands L_D Process; Understands Diagnosis (03/25/2016 06:15:Dahiana Tracy RN) Barriers to Learning: Emotional State; Pain (03/25/2016 06:15:Dahiana Tracy RN) Learning Readiness: Motivated (03/25/2016 06:15:Dahiana Tracy RN) Learns Best By: 1 to 1 Instruction (03/25/2016 06:15:Dahiana Tracy RN) Learning Needs: Labor and Delivery Process; Pain Management; Symptoms to Report; Treatment Plan; Medication; Diagnosis; Equipment (03/25/2016 06:15:Dahiana Tracy RN) DOMESTIC VIOLANCE SCREENING Dom Viol Threatened/Hurt: No (03/25/2016 06:15:Dahiana Tracy RN) Hx of Abuse/Neglect past 2yrs: No (03/25/2016 06:15:Dahiana Tracy RN) Feel Unsafe Going Home: No (03/25/2016 06:15:Dahiana Tracy RN) Addt'l Observ Indicating Abuse: No (03/25/2016 06:15:Dahiana Tracy RN) Reason Unable to Complete Screen: N/A, Screen Completed (03/25/2016 06:15:Dahiana Tracy RN) Considered Personal Harm/Suicide: No (03/25/2016 06:15:Dahiana Tracy RN) NUTRITIONAL/FUNCTIONAL SCREENING Problem with Appetite >5 Days: No (03/25/2016 06:15:Dahiana Tracy RN) Chew/Swallow Difficulties: No (03/25/2016 06:15:Dahiana Tracy RN) Inappropriate Wt Gain/Loss: No (03/25/2016 06:15:Dahiana Tracy RN) Presence Skin Breakdown/Ulcer: No (03/25/2016 06:15:Dahiana Tracy RN) Special Diet: No (03/25/2016 06:15:Dahiana Tracy RN) Pt Requests Human Resources Project Manager Visit: No (03/25/2016 06:15:Dahiana Tracy RN) Hx of Any of the Following?: N/A (03/25/2016 06:15:Dahiana Tracy RN) New Diagnosis of: N/A (03/25/2016 06:15:Dahiana Tracy RN) Requires Assist w/Ambulation: No (03/25/2016 06:15:Dahiana Tracy RN) Uses Assist Device to Ambulate: No (03/25/2016 06:15:Dahiana Tracy RN) Pt Requires Help w/ADL's: No (03/25/2016 06:15:Dahiana Tracy RN)
[2016-03-27 08:04] VITALS: BP 108/67
[2016-03-27] MEDS: PRENATAL VITAMIN W-O CA NO5/FE FUMARATE/FA CAPSULE PO SCH (09:30)
[2016-03-27] MEDS: FERROUS SULFATE 325 MG TABLET PO SCH (09:30)
[2016-03-27] MEDS: DOCUSATE SODIUM 100 MG CAPSULE PO SCH (09:30)
[2016-03-27] MEDS: SENNOSIDES/DOCUSATE 8.6-50 MG 1 EACH TABLET PO SCH (09:30)
--- NOTE | 2016-03-27 09:50 | PDOC DISCHARGE SUMMARY ---
Discharge Summary-OB Discharge Date: 03/27/16 - Final Diagnosis (1) Vaginal delivery Is this a current diagnosis for this admission?: Yes (2) Acute blood loss anemia Is this a current diagnosis for this admission?: Yes - Discharge Medication Home Medications: Pnv95/Ferrous Fumarate/FA [ Caplet] 1 cap PO DAILY 03/25/16 Docusate Sodium [Colace 100 mg Capsule] 100 mg PO BID #60 capsule 03/27/16 Ferrous Sulfate [Feosol 325 mg Tablet] 325 mg PO BID #60 tablet 03/27/16 Ibuprofen [Motrin 800 mg Tablet] 800 mg PO Q8 #60 tablet 03/27/16 Gestational Age: 39.5 Reason(s) for Admission: Onset of Labor Procedures: NST Intrapartum Procedure(s): Spontaneous Vaginal Delivery - Data Baby 1 Female at 1 minute: 8 at 5 minutes: 9 Weight: 3770 kg Home with Mother: Yes Complications: No - Diagnosis Test Laboratory: Temp Pulse Resp BP Pulse Ox 98.1 F 74 18 108/67 99 03/27/16 07:32 03/27/16 07:32 03/27/16 07:32 03/27/16 07:32 03/27/16 07:32 03/25/16 03/25/16 03/26/16 05:52 06:14 07:42 RBC 4.21 3.80 Hgb 11.2 L 10.0 L Hct 33.4 L 30.5 L Urine Opiates Screen NEGATIVE - Discharge information/Instructions Discharge Activity: Activity As Tolerated, Balance Activity w/Rest, Energy Conservation, No Lifting Over 10 Pounds, No Lifting/Push/Pulling, Pelvic Rest, No tub bath Discharge Diet: Regular Disposition: HOME, SELF-CARE Follow [facility] with[facility] in: 4, Weeks
--- NOTE | 2016-03-28 06:20 | L&D Current Admission ---
Current Admit Datetime Report Generated by CPN: 03/28/2016 06:00 ADMISSION INFORMATION Reason for Admission: Rupture of Membranes (03/25/2016 06:15:Dahiana Tracy RN) Chief Complaint: Suspected Rupture of Membranes (03/25/2016 06:15:Dahiana Tracy RN) Medications During : Ferrous Sulfate (Iron); Vitamin (03/25/2016 06:15:Dahiana Tracy RN) Method of Arrival: Wheelchair (03/25/2016 06:15:Dahiana Tracy RN) Reason for Induction: Not Applicable (03/25/2016 06:15:Dahiana Tracy RN) Records Available: Yes (03/25/2016 06:15:Dahiana Tracy RN) General Admission Information: Reviewed; Updated; Confirmed (03/25/2016 06:15:Dahiana Tracy RN) General Admission Reviewed By: Prakash Tracy RN (03/25/2016 06:15:Dahiana Tracy RN) BELONGINGS/ADVANCED DIRECTIVES Other Belongings: see [facility] belongings form (03/25/2016 06:15:Dahiana Tracy RN) Advance Direct for Healthcare: No, but Requests Information (03/25/2016 06:15:Dahiana Tracy RN) Durable Power of Comprehensive Advisor: No (03/25/2016 06:15:Dahiana Tracy RN) Living Will: No (03/25/2016 06:15:Dahiana Tracy RN) Organ Donor: Yes (03/25/2016 06:15:Dahiana Tracy RN) Pt Rights Information Given: Yes (03/25/2016 06:15:Dahiana Tracy RN) Pt Understands Pt Rights: No (03/25/2016 06:15:Dahiana Tracy RN) LEARNING ASSESSMENT Knowledge Level: Understands L_D Process; Understands Diagnosis (03/25/2016 06:15:Dahiana Tracy RN) Barriers to Learning: Emotional State; Pain (03/25/2016 06:15:Dahiana Tracy RN) Learning Readiness: Motivated (03/25/2016 06:15:Dahiana Tracy RN) Learns Best By: 1 to 1 Instruction (03/25/2016 06:15:Dahiana Tracy RN) Learning Needs: Labor and Delivery Process; Pain Management; Symptoms to Report; Treatment Plan; Medication; Diagnosis; Equipment (03/25/2016 06:15:Dahiana Tracy RN) DOMESTIC VIOLANCE SCREENING Dom Viol Threatened/Hurt: No (03/25/2016 06:15:Dahiana Tracy RN) Hx of Abuse/Neglect past 2yrs: No (03/25/2016 06:15:Dahiana Tracy RN) Feel Unsafe Going Home: No (03/25/2016 06:15:Dahiana Tracy RN) Addt'l Observ Indicating Abuse: No (03/25/2016 06:15:Dahiana Tracy RN) Reason Unable to Complete Screen: N/A, Screen Completed (03/25/2016 06:15:Dahiana Tracy RN) Considered Personal Harm/Suicide: No (03/25/2016 06:15:Dahiana Trcay RN) NUTRITIONAL/FUNCTIONAL SCREENING Problem with Appetite >5 Days: No (03/25/2016 06:15:Dahiana Tracy RN) Chew/Swallow Difficulties: No (03/25/2016 06:15:Dahiana Tracy RN) Inappropriate Wt Gain/Loss: No (03/25/2016 06:15:Dahiana Tracy RN) Presence Skin Breakdown/Ulcer: No (03/25/2016 06:15:Dahiana Tracy RN) Special Diet: No (03/25/2016 06:15:Dahiana Tracy RN) Pt Requests Machine Tool Rebuilder Visit: No (03/25/2016 06:15:Dahiana Tracy RN) Hx of Any of the Following?: N/A (03/25/2016 06:15:Dahiana Tracy RN) New Diagnosis of: N/A (03/25/2016 06:15:Dahiana Tracy RN) Requires Assist w/Ambulation: No (03/25/2016 06:15:Dahiana Tracy RN) Uses Assist Device to Ambulate: No (03/25/2016 06:15:Dahiana Tracy RN) Pt Requires Help w/ADL's: No (03/25/2016 06:15:Dahiana Tracy RN)
--- NOTE | 2016-03-28 06:21 | L&D General Admission ---
General Admit Datetime Report Generated by CPN: 03/28/2016 06:00 INFORMATION Patient Age: 25 (03/09/2016 22:02:QS system process) EDC: 03/27/2016 00:00 (03/09/2016 22:04:Mikayla Carr RN) : 2 (03/09/2016 22:07:Rosamaria Coffman RN) Para: 1 (03/11/2016 14:34:Elida Gonzalez RN) Term: 1 (03/09/2016 22:04:Mikayla Carr RN) : 0 (03/09/2016 22:04:Mikayla Carr RN) Spontaneous Abortions: 0 (03/09/2016 22:04:Mikayla Carr RN) Induced Abortions: 0 (03/09/2016 22:04:Mikayla Carr RN) Livin (03/09/2016 22:04:Mikayla Carr RN) Cesareans: 0 (03/09/2016 22:04:Mikayla Carr RN) VBACs: 0 (03/09/2016 22:04:Mikayla Carr RN) Ectopic: 0 (03/09/2016 22:04:Mikayla Carr RN) Multiple Births: 0 (03/09/2016 22:04:Mikayla Carr RN) Baby, Number in Womb: 1 (03/23/2016 22:49:Mikayla Carr RN) CARE Primary Boiler Tube Reamer: [facility] (03/09/2016 22:07:Rosamaria Coffman RN) Adequate Care: Yes (03/09/2016 22:07:Rosamaria Coffman RN) Height (in): 75 (03/25/2016 05:58:QS system process) ALLERGIES Medication Allergy: No (03/09/2016 22:07:Rosamaria Coffman RN) Medication Allergies: No Known Allergies (03/23/2016) (03/23/2016 21:06:QS system process) Latex Allergy: No Latex Allergies (03/09/2016 22:07:Rosamaria Coffman RN) Food Allergies: NA (03/09/2016 22:07:Rosamaria Coffman RN) Environmental Allergies: NA (03/09/2016 22:07:Rosamaria Coffman RN) COMMUNICATION Primary Language: German (03/09/2016 22:07:Rosamaria Coffman RN) Medical Tx Preferred Language: German (03/09/2016 22:04:Mikayal Carr RN) Communication Barrier(s): None (03/09/2016 22:04:Mikayla Carr RN) DEMOGRAPHICS Address: [address] [place] [id number] (03/09/2016 22:02:QS system process) Zipcode: [address] (03/09/2016 22:02:QS system process) Home (03/09/2016 22:02:QS system process) SSN: [id number] (03/09/2016 22:02:QS system process) Next of Kin Name: PABLITO BURNHAM (03/11/2016 10:06:QS system process) Next of Kin (03/11/2016 10:06:QS system process) Next of Kin Relationship: SPO (03/11/2016 10:06:QS system process) Date of : 1990 (03/09/2016 22:02:QS system process) Marital Status: (03/09/2016 22:02:QS system process) Sex: Female (03/09/2016 22:02:QS system process) Race: (03/09/2016 22:02:QS system process) Ethnicity: Non- or (03/09/2016 22:02:QS system process) Faith: None (03/09/2016 22:02:QS system process) DRUG AND ALCOHOL USE Alcohol: No (03/09/2016 22:07:Rosamaria Coffman RN) Cigarettes: Never Smoker. 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: [facility] (03/09/2016 22:07:Rosamaria Coffman RN) Feeding Preference: Breast (03/09/2016 22:07:Rosamaria Coffman RN) Benefit of Breast Feed Discussed: Yes (03/09/2016 22:07:Rosamaria Coffman RN) Circumcision: N/A (03/09/2016 22:07:Rosamaria Coffman RN) Classes Attended: No (03/09/2016 22:07:Rosamaria Coffman RN) Tubal Ligation: No (03/09/2016 22:07:Rosamaria Coffman RN) Tubal Authorization Signed: N/A (03/09/2016 22:07:Rosamaria Coffman RN) Consent: N/A (03/09/2016 22:07:Rosamaria Coffman RN) Consent Signed: N/A (03/09/2016 22:07:Rosamaria Coffman RN) Pain Management Plans: Natural (03/09/2016 22:07:Rosamaria Coffman RN) Plans for Labor and Delivery: Plan (03/09/2016 22:07:Rosamaria Coffman RN) Support Person: Pablito Burnham (03/09/2016 22:07:Rosamaria Coffman RN) Support Person Relationship: (03/09/2016 22:07:Rosamaria Coffman RN) Cultural/Spritual Practice: No (03/09/2016 22:07:Rosamaria Coffman RN) Spir/Cult Dietary Needs: No (03/09/2016 22:07:Rosamaria Coffman RN) LIVING SITUATION/DISCHARGE PLAN Living Arrangements: House (03/09/2016 22:07:Rosamaria Coffman RN) Adequate Access to:: Electric; Heat; Refrigeration; Plumbing/Running water; Phone; Transportation (03/09/2016 22:07:Rosamaria Coffman RN) WIC Program: Yes (03/09/2016 22:07:Rosamaria Coffman RN) Discharge Lumber Buyer Person: Pablito Burnham (03/09/2016 22:07:Rosamaria Coffman RN) Person to Help after Discharge: Pablito Burnham (03/09/2016 22:07:Rosamaria Coffman RN) Currently Using Commun Resources: Yes (03/09/2016 22:07:Rosamaria Coffman RN) Specify Current Resource Used: Medicaid (03/09/2016 22:07:Rosamaria Coffman RN) Outside Agency/Mold Capper: Yes (03/09/2016 22:07:Rosamaria Coffman RN) Car Seat for Discharge: Yes (03/09/2016 22:07:Rosamaria Coffman RN) Adoption Requested: No (03/09/2016 22:07:Rosamaria Coffman RN) Pt Contact w/ Post : N/A (03/09/2016 22:07:Rosamaria Coffman RN) LABS Blood Type: B Positive (03/09/2016 22:07:Elida Gonzalez RN) Antibody Screen: neg (03/09/2016 22:07:Elida Gonzalez RN) Hemoglobin: 10.0 L (03/26/2016 07:42:QS system process) Hematocrit: 30.5 L (03/26/2016 07:42:QS system process) MCV: 80 (03/26/2016 07:42:QS system process) Group Beta Strep: neg (03/09/2016 22:07:Elida Gonzalez RN) Gonorrhea: Negative (03/09/2016 22:07:Dahiana Tracy RN) Chlamydia: Negative (03/09/2016 22:07:Dahiana Tracy RN) RPR/VDRL: Nonreactive (03/09/2016 22:07:Elida Gonzalez RN) HIV Exposure Test: Negative (03/09/2016 22:07:Elida Gonzalez RN) HIV Results: non-reactive (03/09/2016 22:07:Cele Gardner RN) Hepatitis B: Negative (03/09/2016 22:07:Cele Gardner RN) Rubella: Immune (Annotations: Data stored by N on behalf of user) (03/09/2016 22:07:Cele Gardner RN) Varicella: Non Susceptible (03/09/2016 22:07:Cele Gardner RN) OB/PREVIOUS HISTORY Previous Procedures: Ultrasound (03/09/2016 22:07:Rosamaria Coffman RN) Current Procedures: Ultrasound; NST (03/09/2016 22:07:Rosamaria Coffman RN) History of Previous : No (03/09/2016 22:07:Rosamaria Coffman RN) History of Gestational Diabetes: No (03/09/2016 22:07:Rosamaria Coffman RN) History of PIH: No (03/09/2016 22:07:Rosamaria Coffman RN) History of Incompetent Cervix: No (03/09/2016 22:07:Rosamaria Coffman RN) History of Placenta Previa/Abrup: No (03/09/2016 22:07:Rosamaria Coffman RN) History of Macrosomia: No (03/09/2016 22:07:Rosamaria Coffman RN) History of IUGR: No (03/09/2016 22:07:Rosamaria Coffman RN) History of Hemorrhage: No (03/09/2016 22:07:Rosamaria Coffman RN) History of Loss/Stillborn: No (03/09/2016 22:07:Rosamaria Coffman RN) History of : No (03/09/2016 22:07:Rosamaria Coffman RN) History of D (Rh) Sensitization: No (03/09/2016 22:07:Rosamaria Coffman RN) History Recurrent Loss/Stillborn: No (03/09/2016 22:07:Rosamaria Coffman RN) History Depression/PP Depression: No (03/09/2016 22:07:Rosamaria Coffman RN) History of Uterine Anomaly/NINA: No (03/09/2016 22:07:Rosamaria Coffman RN) History of Infertility: No (03/09/2016 22:07:Rosamaria Coffman RN) History of ART Treatment: No (03/09/2016 22:07:Rosamaria Coffman RN) History of NINA: No (03/09/2016 22:07:Rosamaria Coffman RN) Comments Obstetrical History: G1: 2008 male 7 lb 14 oz G2: current (03/09/2016 22:07:Dahiana Tracy RN) MEDICAL HISTORY Med Hx Diabetes: No (03/09/2016 22:07:Rosamaria Coffman RN) Med Hx Hypertension: No (03/09/2016 22:07:Rosamaria Coffman RN) Med Hx Heart Disease: No (03/09/2016 22:07:Rosamaria Coffman RN) Med Hx Autoimmune Disorder: No (03/09/2016 22:07:Rosamaria Coffman RN) Med Hx Kidney Disease/UTI: No (03/09/2016 22:07:Rosamaria Coffman RN) Med Hx Neurologic/Epilepsy: No (03/09/2016 22:07:Rosamaria Coffman RN) Med Hx Psychiatric Disorders: No (03/09/2016 22:07:Rosamaria Coffman RN) Med Hx Hepatitis/Liver Disease: No (03/09/2016 22:07:Rosamaria Coffman RN) Med Hx Varicosities/Phlebitis: No (03/09/2016 22:07:Rosamaria Coffman RN) Med Hx Thyroid Dysfunction: No (03/09/2016 22:07:Rosamaria Coffman RN) Med Hx Trauma/Violence: No (03/09/2016 22:07:Rosamaria Coffman RN) Med Hx Blood Transfusion: No (03/09/2016 22:07:Rosamaria Coffman RN) Med Hx Pulmonary (Asthma,TB): No (03/09/2016 22:07:Rosamaria Coffman RN) Med Hx Breast: No (03/09/2016 22:07:Rosamaria Coffman RN) Med Hx OBSTETRICS SCRUB NURSE Surgery: No (03/09/2016 22:07:Rosamaria Coffman RN) Med Hx Hospitalization/Surgery: Yes (03/09/2016 22:07:Dahiana Tracy RN) Med Hx Anesthetic Complications: No (03/09/2016 22:07:Rosamaria Coffman RN) Med Hx Abnormal Pap Smear: Yes (03/09/2016 22:07:Dahiana Tracy RN) Other Medical Diseases: No (03/09/2016 22:07:Rosamaria Coffman RN) Med Hx Significant Family Hx: No (03/09/2016 22:07:Rosamaria Coffman RN) Details of Med/Surg Hx: hospitalization childbirth, hx abn pap? (03/09/2016 22:07:Dahiana Tracy RN) INFECTIOUS HISTORY Inf Hx Gonorrhea: No (03/09/2016 22:07:Rosamaria Coffman RN) Inf Hx Chlamydia: Yes (03/09/2016 22:07:Rosamaria Coffman RN) Inf Hx Syphilis: No (03/09/2016 22:07:Rosamaria Coffman RN) Inf Hx HIV/AIDS: No (03/09/2016 22:07:Rosamaria Coffman RN) Inf Hx Human Papilloma Virus: No (03/09/2016 22:07:Rosamaria Coffman RN) Inf Hx Pt/Partner Genital Herpes: No (03/09/2016 22:07:Rosamaria Coffman RN) Inf Hx Tuberculosis/Exposure: No (03/09/2016 22:07:Rosamaria Coffman RN) Inf Hx Hepatitis B,C: No (03/09/2016 22:07:Rosamaria Coffman RN) Inf Hx Rash or Viral Illness: No (03/09/2016 22:07:Rosamaria Coffman RN) Details of Infectious Hx: 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) and negative GAURI BV in G2 (03/09/2016 22:07:Dahiana Tracy RN) GENETIC HISTORY Gen Hx Age >=35 at SHARON: No (03/09/2016 22:07:Rosamaria Coffman RN) Gen Hx Thalassemia: No (03/09/2016 22:07:Rosamaria Coffman RN) Gen Hx Congenital Heart Defect: No (03/09/2016 22:07:Rosamaria Coffman RN) Gen Hx Neural Tube Defect: No (03/09/2016 22:07:Rosamaria Coffman RN) Gen Hx Down's Syndrome: No (03/09/2016 22:07:Rosamaria Coffman RN) Gen Hx Yobani-Sachs: No (03/09/2016 22:07:Rosamaria Coffman RN) Gen Hx Ghulam: No (03/09/2016 22:07:Rosamaria Coffman RN) Gen Hx Familial Dysautonomia: No (03/09/2016 22:07:Rosamaria Coffman RN) Gen Hx Sickle Cell Disease/Trait: No (03/09/2016 22:07:Rosamaria Coffman RN) Gen Hx Hemophilia/Blood Disorder: No (03/09/2016 22:07:Rosamaria Coffman RN) Gen Hx Muscular Dystrophy: No (03/09/2016 22:07:Rosamaria Coffman RN) Gen Hx Cystic Fibrosis: No (03/09/2016 22:07:Rosamaria Coffman RN) Gen Hx Huntingtons Chorea: No (03/09/2016 22:07:Rosamaria Coffman RN) Gen Hx Mental Retardation/Autism: No (03/09/2016 22:07:Rosamaria Coffman RN) Gen Hx Tested for Fragile X: No (03/09/2016 22:07:Rosamaria Coffman RN) Gen Hx Other Inher/Chromosomal: No (03/09/2016 22:07:Rosamaria Coffman RN) Gen Hx Maternal Metabolic DO: No (03/09/2016 22:07:Rosamaria Coffman RN) Gen Hx Pt Father or FOB Defect: No (03/09/2016 22:07:Rosamaria Coffman RN) Gen Hx Other Genetic History: No (03/09/2016 22:07:Rosamaria Coffman RN) Gen Hx Drugs/Meds since LMP: Yes (03/09/2016 22:07:Dahiana Tracy RN) Gen Hx Medications: , iron, abx for chlam treatment (03/09/2016 22:07:Dahiana Tracy RN)
--- NOTE | 2016-03-29 06:21 | L&D General Admission ---
General Admit Datetime Report Generated by CPN: 03/29/2016 06:00 INFORMATION Patient Age: 25 (03/09/2016 22:02:QS system process) EDC: 03/27/2016 00:00 (03/09/2016 22:04:Mikayla Carr RN) : 2 (03/09/2016 22:07:Rosamaria Coffman RN) Para: 1 (03/11/2016 14:34:Elida Gonzalez RN) Term: 1 (03/09/2016 22:04:Mikayla Carr RN) : 0 (03/09/2016 22:04:Mikayla Carr RN) Spontaneous Abortions: 0 (03/09/2016 22:04:Mikayla Carr RN) Induced Abortions: 0 (03/09/2016 22:04:Mikayla Carr RN) Livin (03/09/2016 22:04:Mikayla Carr RN) Cesareans: 0 (03/09/2016 22:04:Mikayla Carr RN) VBACs: 0 (03/09/2016 22:04:Mikayla Carr RN) Ectopic: 0 (03/09/2016 22:04:Mikayla Carr RN) Multiple Births: 0 (03/09/2016 22:04:Mikayla Carr RN) Baby, Number in Womb: 1 (03/23/2016 22:49:Mikayla Carr RN) CARE Primary Eligibility Counselor: [facility] (03/09/2016 22:07:Rosamaria Coffman RN) Adequate Care: Yes (03/09/2016 22:07:Rosamaria Coffman RN) Height (in): 75 (03/25/2016 05:58:QS system process) ALLERGIES Medication Allergy: No (03/09/2016 22:07:Rosamaria Coffman RN) Medication Allergies: No Known Allergies (03/23/2016) (03/23/2016 21:06:QS system process) Latex Allergy: No Latex Allergies (03/09/2016 22:07:Rosamaria Coffman RN) Food Allergies: NA (03/09/2016 22:07:Rosamaria Coffman RN) Environmental Allergies: NA (03/09/2016 22:07:Rosamaria Coffman RN) COMMUNICATION Primary Language: Ethiopian (03/09/2016 22:07:Rosamaria Coffman RN) Medical Tx Preferred Language: Ethiopian (03/09/2016 22:04:Mikayla Carr RN) Communication Barrier(s): None (03/09/2016 22:04:Mikayla Carr RN) DEMOGRAPHICS Address: [address] [place] [phone] (03/09/2016 22:02:QS system process) Zipcode: [address] (03/09/2016 22:02:QS system process) Home (03/09/2016 22:02:QS system process) SSN: [id number] (03/09/2016 22:02:QS system process) Next of Kin Name: PABLITO BURNHAM (03/11/2016 10:06:QS system process) Next of Kin (03/11/2016 10:06:QS system process) Next of Kin Relationship: SPO (03/11/2016 10:06:QS system process) Date of : 1990 (03/09/2016 22:02:QS system process) Marital Status: (03/09/2016 22:02:QS system process) Sex: Female (03/09/2016 22:02:QS system process) Race: (03/09/2016 22:02:QS system process) Ethnicity: Non- or (03/09/2016 22:02:QS system process) Muslim: None (03/09/2016 22:02:QS system process) DRUG AND ALCOHOL USE Alcohol: No (03/09/2016 22:07:Rosamaria Coffman RN) Cigarettes: Never Smoker. 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: [facility] (03/09/2016 22:07:Rosamaria Coffman RN) Feeding Preference: Breast (03/09/2016 22:07:Rosamaria Coffman RN) Benefit of Breast Feed Discussed: Yes (03/09/2016 22:07:Rosamaria Coffman RN) Circumcision: N/A (03/09/2016 22:07:Rosamaria Coffman RN) Classes Attended: No (03/09/2016 22:07:Rosamaria Coffman RN) Tubal Ligation: No (03/09/2016 22:07:Rosamaria Coffman RN) Tubal Authorization Signed: N/A (03/09/2016 22:07:Rosamaria Coffman RN) Consent: N/A (03/09/2016 22:07:Rosamaria Coffman RN) Consent Signed: N/A (03/09/2016 22:07:Rosamaria Coffman RN) Pain Management Plans: Natural (03/09/2016 22:07:Rosamaria Coffman RN) Plans for Labor and Delivery: Plan (03/09/2016 22:07:Rosamaria Coffman RN) Support Person: Pablito Burnham (03/09/2016 22:07:Rosamaria Coffman RN) Support Person Relationship: (03/09/2016 22:07:Rosamaria Coffman RN) Cultural/Spritual Practice: No (03/09/2016 22:07:Rosamaria Coffman RN) Spir/Cult Dietary Needs: No (03/09/2016 22:07:Rosamaria Coffman RN) LIVING SITUATION/DISCHARGE PLAN Living Arrangements: House (03/09/2016 22:07:Rosamaria Coffman RN) Adequate Access to:: Electric; Heat; Refrigeration; Plumbing/Running water; Phone; Transportation (03/09/2016 22:07:Rosamaria Coffman RN) WIC Program: Yes (03/09/2016 22:07:Rosamaria Coffman RN) Discharge Document Imaging Specialist Person: Pablito Burnham (03/09/2016 22:07:Rosamaria Coffman RN) Person to Help after Discharge: Pablito Burnham (03/09/2016 22:07:Rosamaria Coffman RN) Currently Using Commun Resources: Yes (03/09/2016 22:07:Rosamaria Coffman RN) Specify Current Resource Used: Medicaid (03/09/2016 22:07:Rosamaria Coffman RN) Outside Agency/Sales Training Coordinator: Yes (03/09/2016 22:07:Rosamaria Coffman RN) Car Seat for Discharge: Yes (03/09/2016 22:07:Rosamaria Coffman RN) Adoption Requested: No (03/09/2016 22:07:Rosamaria Coffman RN) Pt Contact w/ Post : N/A (03/09/2016 22:07:Rosamaria Coffman RN) LABS Blood Type: B Positive (03/09/2016 22:07:Elida Gonzalez RN) Antibody Screen: neg (03/09/2016 22:07:Elida Gonzalez RN) Hemoglobin: 10.0 L (03/26/2016 07:42:QS system process) Hematocrit: 30.5 L (03/26/2016 07:42:QS system process) MCV: 80 (03/26/2016 07:42:QS system process) Group Beta Strep: neg (03/09/2016 22:07:Elida Gonzalez RN) Gonorrhea: Negative (03/09/2016 22:07:Dahiana Tracy RN) Chlamydia: Negative (03/09/2016 22:07:Dahiana Tracy RN) RPR/VDRL: Nonreactive (03/09/2016 22:07:Elida Gonzalez RN) HIV Exposure Test: Negative (03/09/2016 22:07:Elida Gonzalez RN) HIV Results: non-reactive (03/09/2016 22:07:Cele Gardner RN) Hepatitis B: Negative (03/09/2016 22:07:Cele Gardner RN) Rubella: Immune (Annotations: Data stored by N on behalf of user) (03/09/2016 22:07:Cele Gardner RN) Varicella: Non Susceptible (03/09/2016 22:07:Cele Gardner RN) OB/PREVIOUS HISTORY Previous Procedures: Ultrasound (03/09/2016 22:07:Rosamaria Coffman RN) Current Procedures: Ultrasound; NST (03/09/2016 22:07:Rosamaria Coffman RN) History of Previous : No (03/09/2016 22:07:Rosamaria Coffman RN) History of Gestational Diabetes: No (03/09/2016 22:07:Rosamaria Coffman RN) History of PIH: No (03/09/2016 22:07:Rosamaria Coffman RN) History of Incompetent Cervix: No (03/09/2016 22:07:Rosamaria Coffman RN) History of Placenta Previa/Abrup: No (03/09/2016 22:07:Rosamaria Coffman RN) History of Macrosomia: No (03/09/2016 22:07:Rosamaria Coffman RN) History of IUGR: No (03/09/2016 22:07:Rosamaria Coffman RN) History of Hemorrhage: No (03/09/2016 22:07:Rosamaria Coffman RN) History of Loss/Stillborn: No (03/09/2016 22:07:Rosamaria Coffman RN) History of : No (03/09/2016 22:07:Rosamaria Coffman RN) History of D (Rh) Sensitization: No (03/09/2016 22:07:Rosamaria Coffman RN) History Recurrent Loss/Stillborn: No (03/09/2016 22:07:Rosamaria Coffman RN) History Depression/PP Depression: No (03/09/2016 22:07:Rosamaria Coffman RN) History of Uterine Anomaly/NINA: No (03/09/2016 22:07:Rosamaria Coffman RN) History of Infertility: No (03/09/2016 22:07:Rosamaria Coffman RN) History of ART Treatment: No (03/09/2016 22:07:Rosamaria Coffman RN) History of NINA: No (03/09/2016 22:07:Rosamaria Coffman RN) Comments Obstetrical History: G1: 2008 male 7 lb 14 oz G2: current (03/09/2016 22:07:Dahiana Tracy RN) MEDICAL HISTORY Med Hx Diabetes: No (03/09/2016 22:07:Rosamaria Coffman RN) Med Hx Hypertension: No (03/09/2016 22:07:Rosamaria Coffman RN) Med Hx Heart Disease: No (03/09/2016 22:07:Rosamaria Coffman RN) Med Hx Autoimmune Disorder: No (03/09/2016 22:07:Rosamaria Coffman RN) Med Hx Kidney Disease/UTI: No (03/09/2016 22:07:Rosamaria Coffman RN) Med Hx Neurologic/Epilepsy: No (03/09/2016 22:07:Rosamaria Coffman RN) Med Hx Psychiatric Disorders: No (03/09/2016 22:07:Rosamaria Coffman RN) Med Hx Hepatitis/Liver Disease: No (03/09/2016 22:07:Rosamaria Coffman RN) Med Hx Varicosities/Phlebitis: No (03/09/2016 22:07:Rosamaria Coffman RN) Med Hx Thyroid Dysfunction: No (03/09/2016 22:07:Rosamaria Coffman RN) Med Hx Trauma/Violence: No (03/09/2016 22:07:Rosamaria Coffman RN) Med Hx Blood Transfusion: No (03/09/2016 22:07:Rosamaria Coffman RN) Med Hx Pulmonary (Asthma,TB): No (03/09/2016 22:07:Rosamaria Coffman RN) Med Hx Breast: No (03/09/2016 22:07:Rosamaria Coffman RN) Med Hx NARCOTICS AND VICE DETECTIVE Surgery: No (03/09/2016 22:07:Rosamaria Coffman RN) Med Hx Hospitalization/Surgery: Yes (03/09/2016 22:07:Dahiana Tracy RN) Med Hx Anesthetic Complications: No (03/09/2016 22:07:Rosamaria Coffman RN) Med Hx Abnormal Pap Smear: Yes (03/09/2016 22:07:Dahiana Tracy RN) Other Medical Diseases: No (03/09/2016 22:07:Rosamaria Coffman RN) Med Hx Significant Family Hx: No (03/09/2016 22:07:Rosamaria Coffman RN) Details of Med/Surg Hx: hospitalization childbirth, hx abn pap? (03/09/2016 22:07:Dahiana Tracy RN) INFECTIOUS HISTORY Inf Hx Gonorrhea: No (03/09/2016 22:07:Rosamaria Coffman RN) Inf Hx Chlamydia: Yes (03/09/2016 22:07:Rosamaria Coffman RN) Inf Hx Syphilis: No (03/09/2016 22:07:Rosamaria Coffman RN) Inf Hx HIV/AIDS: No (03/09/2016 22:07:Rosamaria Coffman RN) Inf Hx Human Papilloma Virus: No (03/09/2016 22:07:Rosamaria Coffman RN) Inf Hx Pt/Partner Genital Herpes: No (03/09/2016 22:07:Rosamaria Coffman RN) Inf Hx Tuberculosis/Exposure: No (03/09/2016 22:07:Rosamaria Coffman RN) Inf Hx Hepatitis B,C: No (03/09/2016 22:07:Rosamaria Coffman RN) Inf Hx Rash or Viral Illness: No (03/09/2016 22:07:Rosamaria Coffman RN) Details of Infectious Hx: 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) and negative GAURI BV in G2 (03/09/2016 22:07:Dahiana Tracy RN) GENETIC HISTORY Gen Hx Age >=35 at SHARON: No (03/09/2016 22:07:Rosamaria Coffman RN) Gen Hx Thalassemia: No (03/09/2016 22:07:Rosamaria Coffman RN) Gen Hx Congenital Heart Defect: No (03/09/2016 22:07:Rosamaria Coffman RN) Gen Hx Neural Tube Defect: No (03/09/2016 22:07:Rosamaria Coffman RN) Gen Hx Down's Syndrome: No (03/09/2016 22:07:Rosamaria Coffman RN) Gen Hx Yobani-Sachs: No (03/09/2016 22:07:Rosamaria Coffman RN) Gen Hx Ghulam: No (03/09/2016 22:07:Rosamaria Coffman RN) Gen Hx Familial Dysautonomia: No (03/09/2016 22:07:Rosamaria Coffman RN) Gen Hx Sickle Cell Disease/Trait: No (03/09/2016 22:07:Rosamaria Coffman RN) Gen Hx Hemophilia/Blood Disorder: No (03/09/2016 22:07:Rosamaria Coffman RN) Gen Hx Muscular Dystrophy: No (03/09/2016 22:07:Rosamaria Coffman RN) Gen Hx Cystic Fibrosis: No (03/09/2016 22:07:Rosamaria Coffman RN) Gen Hx Huntingtons Chorea: No (03/09/2016 22:07:Rosamaria Coffman RN) Gen Hx Mental Retardation/Autism: No (03/09/2016 22:07:Rosamaria Coffman RN) Gen Hx Tested for Fragile X: No (03/09/2016 22:07:Rosamaria Coffman RN) Gen Hx Other Inher/Chromosomal: No (03/09/2016 22:07:Rosamaria Coffman RN) Gen Hx Maternal Metabolic DO: No (03/09/2016 22:07:Rosamaria Coffman RN) Gen Hx Pt Father or FOB Defect: No (03/09/2016 22:07:Rosamaria Coffman RN) Gen Hx Other Genetic History: No (03/09/2016 22:07:Rosamaria Coffman RN) Gen Hx Drugs/Meds since LMP: Yes (03/09/2016 22:07:Dahiana Tracy RN) Gen Hx Medications: , iron, abx for chlam treatment (03/09/2016 22:07:Dahiana Tracy RN)
--- NOTE | 2016-03-29 06:21 | L&D Current Admission ---
Current Admit Datetime Report Generated by CPN: 03/29/2016 06:00 ADMISSION INFORMATION Reason for Admission: Rupture of Membranes (03/25/2016 06:15:Dahiana Tracy RN) Chief Complaint: Suspected Rupture of Membranes (03/25/2016 06:15:Dahiana Tracy RN) Medications During : Ferrous Sulfate (Iron); Vitamin (03/25/2016 06:15:Dahiana Tracy RN) Method of Arrival: Wheelchair (03/25/2016 06:15:Dahiana Tracy RN) Reason for Induction: Not Applicable (03/25/2016 06:15:Dahiana Tracy RN) Records Available: Yes (03/25/2016 06:15:Dahiana Tracy RN) General Admission Information: Reviewed; Updated; Confirmed (03/25/2016 06:15:Dahiana Tracy RN) General Admission Reviewed By: Prakash Tracy RN (03/25/2016 06:15:Dahiana Tracy RN) BELONGINGS/ADVANCED DIRECTIVES Other Belongings: see [facility] belongings form (03/25/2016 06:15:Dahiana Tracy RN) Advance Direct for Healthcare: No, but Requests Information (03/25/2016 06:15:Dahiana Tracy RN) Durable Power of Vegetable Inspector: No (03/25/2016 06:15:Dahiana Tracy RN) Living Will: No (03/25/2016 06:15:Dahiana Tracy RN) Organ Donor: Yes (03/25/2016 06:15:Dahiana Tracy RN) Pt Rights Information Given: Yes (03/25/2016 06:15:Dahiana Tracy RN) Pt Understands Pt Rights: No (03/25/2016 06:15:Dahiana Tracy RN) LEARNING ASSESSMENT Knowledge Level: Understands L_D Process; Understands Diagnosis (03/25/2016 06:15:Dahiana Tracy RN) Barriers to Learning: Emotional State; Pain (03/25/2016 06:15:Dahiana Tracy RN) Learning Readiness: Motivated (03/25/2016 06:15:Dahiana Tracy RN) Learns Best By: 1 to 1 Instruction (03/25/2016 06:15:Dahiana Tracy RN) Learning Needs: Labor and Delivery Process; Pain Management; Symptoms to Report; Treatment Plan; Medication; Diagnosis; Equipment (03/25/2016 06:15:Dahiana Tracy RN) DOMESTIC VIOLANCE SCREENING Dom Viol Threatened/Hurt: No (03/25/2016 06:15:Dahiana Tracy RN) Hx of Abuse/Neglect past 2yrs: No (03/25/2016 06:15:Dahiana Tracy RN) Feel Unsafe Going Home: No (03/25/2016 06:15:Dahiana Tracy RN) Addt'l Observ Indicating Abuse: No (03/25/2016 06:15:Dahiana Tracy RN) Reason Unable to Complete Screen: N/A, Screen Completed (03/25/2016 06:15:Dahiana Tracy RN) Considered Personal Harm/Suicide: No (03/25/2016 06:15:Dahiana Tracy RN) NUTRITIONAL/FUNCTIONAL SCREENING Problem with Appetite >5 Days: No (03/25/2016 06:15:Dahiana Tracy RN) Chew/Swallow Difficulties: No (03/25/2016 06:15:Dahiana Tracy RN) Inappropriate Wt Gain/Loss: No (03/25/2016 06:15:Dahiana Tracy RN) Presence Skin Breakdown/Ulcer: No (03/25/2016 06:15:Dahiana Tracy RN) Special Diet: No (03/25/2016 06:15:Dahiana Tracy RN) Pt Requests Teacher Aide Visit: No (03/25/2016 06:15:aDhiana Tracy RN) Hx of Any of the Following?: N/A (03/25/2016 06:15:Dahiana Tracy RN) New Diagnosis of: N/A (03/25/2016 06:15:Dahiana Tracy RN) Requires Assist w/Ambulation: No (03/25/2016 06:15:Dahiana Tracy RN) Uses Assist Device to Ambulate: No (03/25/2016 06:15:Dahiana Tracy RN) Pt Requires Help w/ADL's: No (03/25/2016 06:15:Dahiana Tracy RN)
--- NOTE | 2016-03-30 06:21 | L&D General Admission ---
General Admit Datetime Report Generated by CPN: 03/30/2016 06:00 INFORMATION Patient Age: 25 (03/09/2016 22:02:QS system process) EDC: 03/27/2016 00:00 (03/09/2016 22:04:Mikayla Carr RN) : 2 (03/09/2016 22:07:Rosamaria Coffman RN) Para: 1 (03/11/2016 14:34:Elida Gonzalez RN) Term: 1 (03/09/2016 22:04:Mikayla Carr RN) : 0 (03/09/2016 22:04:Mikayla Carr RN) Spontaneous Abortions: 0 (03/09/2016 22:04:Mikayla Carr RN) Induced Abortions: 0 (03/09/2016 22:04:Mikayla Carr RN) Livin (03/09/2016 22:04:Mikayla Carr RN) Cesareans: 0 (03/09/2016 22:04:Mikayla Carr RN) VBACs: 0 (03/09/2016 22:04:Mikayla Carr RN) Ectopic: 0 (03/09/2016 22:04:Mikayla Carr RN) Multiple Births: 0 (03/09/2016 22:04:Mikayla Carr RN) Baby, Number in Womb: 1 (03/23/2016 22:49:Mikayla Carr RN) CARE Primary Merchandising Manager: [facility] (03/09/2016 22:07:Rosamaria Coffman RN) Adequate Care: Yes (03/09/2016 22:07:Rosamaria Coffman RN) Height (in): 75 (03/25/2016 05:58:QS system process) ALLERGIES Medication Allergy: No (03/09/2016 22:07:Rosamaria Coffman RN) Medication Allergies: No Known Allergies (03/23/2016) (03/23/2016 21:06:QS system process) Latex Allergy: No Latex Allergies (03/09/2016 22:07:Rosamaria Coffman RN) Food Allergies: NA (03/09/2016 22:07:Rosamaria Coffman RN) Environmental Allergies: NA (03/09/2016 22:07:Rosamaria Coffman RN) COMMUNICATION Primary Language: Kyrgyz (03/09/2016 22:07:Rosamaria Coffman RN) Medical Tx Preferred Language: Kyrgyz (03/09/2016 22:04:Mikayla Carr RN) Communication Barrier(s): None (03/09/2016 22:04:Mikayla Carr RN) DEMOGRAPHICS Address: [address] [place] [id number] (03/09/2016 22:02:QS system process) Zipcode: [address] (03/09/2016 22:02:QS system process) Home (03/09/2016 22:02:QS system process) SSN: [id number] (03/09/2016 22:02:QS system process) Next of Kin Name: PABLITO BURNHAM (03/11/2016 10:06:QS system process) Next of Kin (03/11/2016 10:06:QS system process) Next of Kin Relationship: SPO (03/11/2016 10:06:QS system process) Date of : 1990 (03/09/2016 22:02:QS system process) Marital Status: (03/09/2016 22:02:QS system process) Sex: Female (03/09/2016 22:02:QS system process) Race: (03/09/2016 22:02:QS system process) Ethnicity: Non- or (03/09/2016 22:02:QS system process) Christianity: None (03/09/2016 22:02:QS system process) DRUG AND ALCOHOL USE Alcohol: No (03/09/2016 22:07:Rosamaria Coffman RN) Cigarettes: Never Smoker. [id number] (03/09/2016 22:07:Rosamaria Coffman RN) Marijuana: No (03/09/2016 22:07:Rosamaria Coffman RN) Cocaine: No (03/09/2016 22:07:Rosamaria Coffman RN) Other Illicit Drugs: No (03/09/2016 22:07:Rosamaria Coffman RN) VACCINE HISTORY Influenza Vaccine: Yes (03/09/2016 22:07:Elida Gnozalez RN) Pneumococcal Vaccine: No (03/09/2016 22:07:Rosamaria Coffman RN) Tetanus Vaccine: No (03/09/2016 22:07:Rosamaria Coffman RN) Tdap Vaccine: No (03/09/2016 22:07:Rosamaria Coffman RN) Hepatitis B Vaccine: No (03/09/2016 22:07:Rosamaria Coffman RN) Risk Engineer: [facility] (03/09/2016 22:07:Rosamaria Coffman RN) Feeding Preference: Breast (03/09/2016 22:07:Rosamaria Coffman RN) Benefit of Breast Feed Discussed: Yes (03/09/2016 22:07:Rosamaria Coffman RN) Circumcision: N/A (03/09/2016 22:07:Rosamaria Coffman RN) Classes Attended: No (03/09/2016 22:07:Rosamaria Coffman RN) Tubal Ligation: No (03/09/2016 22:07:Rosamaria Coffman RN) Tubal Authorization Signed: N/A (03/09/2016 22:07:Rosamaria Coffman RN) Consent: N/A (03/09/2016 22:07:Rosamaria Coffman RN) Consent Signed: N/A (03/09/2016 22:07:Rosamaria Coffman RN) Pain Management Plans: Natural (03/09/2016 22:07:Rosamaria Coffman RN) Plans for Labor and Delivery: Plan (03/09/2016 22:07:Rosamaria Coffman RN) Support Person: Pablito Burnham (03/09/2016 22:07:Rosamaria Coffman RN) Support Person Relationship: (03/09/2016 22:07:Rosamaria Coffman RN) Cultural/Spritual Practice: No (03/09/2016 22:07:Rosamaria Coffman RN) Spir/Cult Dietary Needs: No (03/09/2016 22:07:Rosamaria Coffman RN) LIVING SITUATION/DISCHARGE PLAN Living Arrangements: House (03/09/2016 22:07:Rosamaria Coffman RN) Adequate Access to:: Electric; Heat; Refrigeration; Plumbing/Running water; Phone; Transportation (03/09/2016 22:07:Rosamaria Coffman RN) WIC Program: Yes (03/09/2016 22:07:Rosamaria Coffman RN) Discharge Automotive Wholesale Parts Advisor Person: Pablito Burnham (03/09/2016 22:07:Rosamaria Coffman RN) Person to Help after Discharge: Pablito Burnham (03/09/2016 22:07:Rosamaria Coffman RN) Currently Using Commun Resources: Yes (03/09/2016 22:07:Rosamaria Coffman RN) Specify Current Resource Used: Medicaid (03/09/2016 22:07:Rosamaria Coffman RN) Outside Agency/Flake Cutter Operator: Yes (03/09/2016 22:07:Rosamaria Coffman RN) Car Seat for Discharge: Yes (03/09/2016 22:07:Rosamaria Coffman RN) Adoption Requested: No (03/09/2016 22:07:Rosamaria Coffman RN) Pt Contact w/ Post : N/A (03/09/2016 22:07:Rosamaria Coffman RN) LABS Blood Type: B Positive (03/09/2016 22:07:Elida Gonzalez RN) Antibody Screen: neg (03/09/2016 22:07:Elida Gonzalez RN) Hemoglobin: 10.0 L (03/26/2016 07:42:QS system process) Hematocrit: 30.5 L (03/26/2016 07:42:QS system process) MCV: 80 (03/26/2016 07:42:QS system process) Group Beta Strep: neg (03/09/2016 22:07:Elida Gonzalez RN) Gonorrhea: Negative (03/09/2016 22:07:Dahiana Tracy RN) Chlamydia: Negative (03/09/2016 22:07:Dahiana Tracy RN) RPR/VDRL: Nonreactive (03/09/2016 22:07:Elida Gonzalez RN) HIV Exposure Test: Negative (03/09/2016 22:07:Elida Gonzalez RN) HIV Results: non-reactive (03/09/2016 22:07:Cele Gardner RN) Hepatitis B: Negative (03/09/2016 22:07:Cele Gardner RN) Rubella: Immune (Annotations: Data stored by N on behalf of user) (03/09/2016 22:07:Cele Gardner RN) Varicella: Non Susceptible (03/09/2016 22:07:Cele Gardner RN) OB/PREVIOUS HISTORY Previous Procedures: Ultrasound (03/09/2016 22:07:Rosamaria Coffman RN) Current Procedures: Ultrasound; NST (03/09/2016 22:07:Rosamaria Coffman RN) History of Previous : No (03/09/2016 22:07:Rosamaria Coffman RN) History of Gestational Diabetes: No (03/09/2016 22:07:Rosamaria Coffman RN) History of PIH: No (03/09/2016 22:07:Rosamaria Coffman RN) History of Incompetent Cervix: No (03/09/2016 22:07:Rosamaria Coffman RN) History of Placenta Previa/Abrup: No (03/09/2016 22:07:Rosamaria Coffman RN) History of Macrosomia: No (03/09/2016 22:07:Rosamaria Coffman RN) History of IUGR: No (03/09/2016 22:07:Rosamaria Coffman RN) History of Hemorrhage: No (03/09/2016 22:07:Rosamaria Coffman RN) History of Loss/Stillborn: No (03/09/2016 22:07:Rosamaria Coffman RN) History of : No (03/09/2016 22:07:Rosamaria Coffman RN) History of D (Rh) Sensitization: No (03/09/2016 22:07:Rosamaria Coffman RN) History Recurrent Loss/Stillborn: No (03/09/2016 22:07:Rosamaria Coffman RN) History Depression/PP Depression: No (03/09/2016 22:07:Rosamaria Coffman RN) History of Uterine Anomaly/NINA: No (03/09/2016 22:07:Rosamaria Coffman RN) History of Infertility: No (03/09/2016 22:07:Rosamaria Coffman RN) History of ART Treatment: No (03/09/2016 22:07:Rosamaria Coffman RN) History of NINA: No (03/09/2016 22:07:Rosamaria Coffman RN) Comments Obstetrical History: G1: 2008 male 7 lb 14 oz G2: current (03/09/2016 22:07:Dahiana Tracy RN) MEDICAL HISTORY Med Hx Diabetes: No (03/09/2016 22:07:Rosamaria Coffman RN) Med Hx Hypertension: No (03/09/2016 22:07:Rosamaria Coffman RN) Med Hx Heart Disease: No (03/09/2016 22:07:Rosamaria Coffman RN) Med Hx Autoimmune Disorder: No (03/09/2016 22:07:Rosamaria Coffman RN) Med Hx Kidney Disease/UTI: No (03/09/2016 22:07:Rosamaria Coffman RN) Med Hx Neurologic/Epilepsy: No (03/09/2016 22:07:Rosamaria Coffman RN) Med Hx Psychiatric Disorders: No (03/09/2016 22:07:Rosamaria Coffman RN) Med Hx Hepatitis/Liver Disease: No (03/09/2016 22:07:Rosamaria Coffman RN) Med Hx Varicosities/Phlebitis: No (03/09/2016 22:07:Rosamaria Coffman RN) Med Hx Thyroid Dysfunction: No (03/09/2016 22:07:Rosamaria Coffman RN) Med Hx Trauma/Violence: No (03/09/2016 22:07:Rosamaria Coffman RN) Med Hx Blood Transfusion: No (03/09/2016 22:07:Rosamaria Coffman RN) Med Hx Pulmonary (Asthma,TB): No (03/09/2016 22:07:Rosamaria Coffman RN) Med Hx Breast: No (03/09/2016 22:07:Rosamaria Coffman RN) Med Hx STAMPING MILL TENDER Surgery: No (03/09/2016 22:07:Rosamaria Coffman RN) Med Hx Hospitalization/Surgery: Yes (03/09/2016 22:07:Dahiana Tracy RN) Med Hx Anesthetic Complications: No (03/09/2016 22:07:Rosamaria Coffman RN) Med Hx Abnormal Pap Smear: Yes (03/09/2016 22:07:Dahiana Tracy RN) Other Medical Diseases: No (03/09/2016 22:07:Rosamaria Coffman RN) Med Hx Significant Family Hx: No (03/09/2016 22:07:Rosamaria Coffman RN) Details of Med/Surg Hx: hospitalization childbirth, hx abn pap? (03/09/2016 22:07:Dahiana Tracy RN) INFECTIOUS HISTORY Inf Hx Gonorrhea: No (03/09/2016 22:07:Rosamaria Coffman RN) Inf Hx Chlamydia: Yes (03/09/2016 22:07:Rosamaria Coffman RN) Inf Hx Syphilis: No (03/09/2016 22:07:Rosamaria Coffman RN) Inf Hx HIV/AIDS: No (03/09/2016 22:07:Rosamaria Coffman RN) Inf Hx Human Papilloma Virus: No (03/09/2016 22:07:Rosamaria Coffman RN) Inf Hx Pt/Partner Genital Herpes: No (03/09/2016 22:07:Rosamaria Coffman RN) Inf Hx Tuberculosis/Exposure: No (03/09/2016 22:07:Rosamaria Coffman RN) Inf Hx Hepatitis B,C: No (03/09/2016 22:07:Rosamaria Coffman RN) Inf Hx Rash or Viral Illness: No (03/09/2016 22:07:Rosamaria Coffman RN) Details of Infectious Hx: 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) and negative GAURI BV in G2 (03/09/2016 22:07:Dahiana Tracy RN) GENETIC HISTORY Gen Hx Age >=35 at SHAR[place]: No (03/09/2016 22:07:Rosamaria Coffman RN) Gen Hx Thalassemia: No (03/09/2016 22:07:Rosamaria Coffman RN) Gen Hx Congenital Heart Defect: No (03/09/2016 22:07:Rosamaria Coffman RN) Gen Hx Neural Tube Defect: No (03/09/2016 22:07:Rosamaria Coffman RN) Gen Hx Down's Syndrome: No (03/09/2016 22:07:Rosamaria Coffman RN) Gen Hx Yobani-Sachs: No (03/09/2016 22:07:Rosamaria Coffman RN) Gen Hx Ghulam: No (03/09/2016 22:07:Rosamaria Coffman RN) Gen Hx Familial Dysautonomia: No (03/09/2016 22:07:Rosamaria Coffman RN) Gen Hx Sickle Cell Disease/Trait: No (03/09/2016 22:07:Rosamaria Coffman RN) Gen Hx Hemophilia/Blood Disorder: No (03/09/2016 22:07:Rosamaria Coffman RN) Gen Hx Muscular Dystrophy: No (03/09/2016 22:07:Rosamaria Coffman RN) Gen Hx Cystic Fibrosis: No (03/09/2016 22:07:Rosamaria Coffman RN) Gen Hx Huntingtons Chorea: No (03/09/2016 22:07:Rosamaria Coffman RN) Gen Hx Mental Retardation/Autism: No (03/09/2016 22:07:Rosamaria Coffman RN) Gen Hx Tested for Fragile X: No (03/09/2016 22:07:Rosamaria Coffman RN) Gen Hx Other Inher/Chromosomal: No (03/09/2016 22:07:Rosamaria Coffman RN) Gen Hx Maternal Metabolic DO: No (03/09/2016 22:07:Rosamaria Coffman RN) Gen Hx Pt Father or FOB Defect: No (03/09/2016 22:07:Rosamaria Coffman RN) Gen Hx Other Genetic History: No (03/09/2016 22:07:Rosamaria Coffman RN) Gen Hx Drugs/Meds since LMP: Yes (03/09/2016 22:07:Dahiana Tracy RN) Gen Hx Medications: , iron, abx for chlam treatment (03/09/2016 22:07:Dahiana Tracy RN)
--- NOTE | 2016-03-30 06:21 | L&D Current Admission ---
Current Admit Datetime Report Generated by CPN: 03/30/2016 06:00 ADMISSION INFORMATION Reason for Admission: Rupture of Membranes (03/25/2016 06:15:Dahiana Tracy RN) Chief Complaint: Suspected Rupture of Membranes (03/25/2016 06:15:Dahiana Tracy RN) Medications During : Ferrous Sulfate (Iron); Vitamin (03/25/2016 06:15:Dahiana Tracy RN) Method of Arrival: Wheelchair (03/25/2016 06:15:Dahiana Tracy RN) Reason for Induction: Not Applicable (03/25/2016 06:15:Dahiana Tracy RN) Records Available: Yes (03/25/2016 06:15:Dahiana Tracy RN) General Admission Information: Reviewed; Updated; Confirmed (03/25/2016 06:15:Dahiana Tracy RN) General Admission Reviewed By: Prakash Tracy RN (03/25/2016 06:15:Dahiana Tracy RN) BELONGINGS/ADVANCED DIRECTIVES Other Belongings: see [facility] belongings form (03/25/2016 06:15:Dahiana Tracy RN) Advance Direct for Healthcare: No, but Requests Information (03/25/2016 06:15:Dahiana Tracy RN) Durable Power of Assembler Product: No (03/25/2016 06:15:Dahiana Tracy RN) Living Will: No (03/25/2016 06:15:Dahiana Tracy RN) Organ Donor: Yes (03/25/2016 06:15:Dahiana Tracy RN) Pt Rights Information Given: Yes (03/25/2016 06:15:Dahiana Tracy RN) Pt Understands Pt Rights: No (03/25/2016 06:15:Dahiana Tracy RN) LEARNING ASSESSMENT Knowledge Level: Understands L_D Process; Understands Diagnosis (03/25/2016 06:15:Dahiana Tracy RN) Barriers to Learning: Emotional State; Pain (03/25/2016 06:15:Dahiana Tracy RN) Learning Readiness: Motivated (03/25/2016 06:15:Dahiana Tracy RN) Learns Best By: 1 to 1 Instruction (03/25/2016 06:15:Dahiana Tracy RN) Learning Needs: Labor and Delivery Process; Pain Management; Symptoms to Report; Treatment Plan; Medication; Diagnosis; Equipment (03/25/2016 06:15:Dahiana Tracy RN) DOMESTIC VIOLANCE SCREENING Dom Viol Threatened/Hurt: No (03/25/2016 06:15:Dahiana Tracy RN) Hx of Abuse/Neglect past 2yrs: No (03/25/2016 06:15:Dahiana Tracy RN) Feel Unsafe Going Home: No (03/25/2016 06:15:Dahiana Tracy RN) Addt'l Observ Indicating Abuse: No (03/25/2016 06:15:Dahiana Tracy RN) Reason Unable to Complete Screen: N/A, Screen Completed (03/25/2016 06:15:Dahiana Tracy RN) Considered Personal Harm/Suicide: No (03/25/2016 06:15:Dahiana Tracy RN) NUTRITIONAL/FUNCTIONAL SCREENING Problem with Appetite >5 Days: No (03/25/2016 06:15:Dahiana Tracy RN) Chew/Swallow Difficulties: No (03/25/2016 06:15:Dahiana Tracy RN) Inappropriate Wt Gain/Loss: No (03/25/2016 06:15:Dahiana Tracy RN) Presence Skin Breakdown/Ulcer: No (03/25/2016 06:15:Dahiana Tracy RN) Special Diet: No (03/25/2016 06:15:Dahiana Tracy RN) Pt Requests Yard Demurrage Clerk Visit: No (03/25/2016 06:15:Dahiana Tracy RN) Hx of Any of the Following?: N/A (03/25/2016 06:15:Dahiana Tracy RN) New Diagnosis of: N/A (03/25/2016 06:15:Dahiana Tracy RN) Requires Assist w/Ambulation: No (03/25/2016 06:15:Dahiana Tracy RN) Uses Assist Device to Ambulate: No (03/25/2016 06:15:Dahiana Tracy RN) Pt Requires Help w/ADL's: No (03/25/2016 06:15:Dahiana Tracy RN)
--- NOTE | 2016-03-31 06:22 | L&D Current Admission ---
Current Admit Datetime Report Generated by CPN: 03/31/2016 06:00 ADMISSION INFORMATION Reason for Admission: Rupture of Membranes (03/25/2016 06:15:Dahiana Tracy RN) Chief Complaint: Suspected Rupture of Membranes (03/25/2016 06:15:Dahiana Tracy RN) Medications During : Ferrous Sulfate (Iron); Vitamin (03/25/2016 06:15:Dahiana Tracy RN) Method of Arrival: Wheelchair (03/25/2016 06:15:Dahiana Tracy RN) Reason for Induction: Not Applicable (03/25/2016 06:15:Dahiana Tracy RN) Records Available: Yes (03/25/2016 06:15:Dahiana Tracy RN) General Admission Information: Reviewed; Updated; Confirmed (03/25/2016 06:15:Dahiana Tracy RN) General Admission Reviewed By: Prakash Tracy RN (03/25/2016 06:15:Dahiana Tracy RN) BELONGINGS/ADVANCED DIRECTIVES Other Belongings: see [facility] belongings form (03/25/2016 06:15:Dahiana Tracy RN) Advance Direct for Healthcare: No, but Requests Information (03/25/2016 06:15:Dahiana Tracy RN) Durable Power of Furniture Assembler: No (03/25/2016 06:15:Dahiana Tracy RN) Living Will: No (03/25/2016 06:15:Dahiana Tracy RN) Organ Donor: Yes (03/25/2016 06:15:Dahiana Tracy RN) Pt Rights Information Given: Yes (03/25/2016 06:15:Dahiana Tracy RN) Pt Understands Pt Rights: No (03/25/2016 06:15:Dahinaa Tracy RN) LEARNING ASSESSMENT Knowledge Level: Understands L_D Process; Understands Diagnosis (03/25/2016 06:15:Dahiana Tracy RN) Barriers to Learning: Emotional State; Pain (03/25/2016 06:15:Dahiana Tracy RN) Learning Readiness: Motivated (03/25/2016 06:15:Dahiana Tracy RN) Learns Best By: 1 to 1 Instruction (03/25/2016 06:15:Dahiana Tracy RN) Learning Needs: Labor and Delivery Process; Pain Management; Symptoms to Report; Treatment Plan; Medication; Diagnosis; Equipment (03/25/2016 06:15:Dahiana Tracy RN) DOMESTIC VIOLANCE SCREENING Dom Viol Threatened/Hurt: No (03/25/2016 06:15:Dahiana Tracy RN) Hx of Abuse/Neglect past 2yrs: No (03/25/2016 06:15:Dahiana Tracy RN) Feel Unsafe Going Home: No (03/25/2016 06:15:Dahiana Tracy RN) Addt'l Observ Indicating Abuse: No (03/25/2016 06:15:Dahiana Tracy RN) Reason Unable to Complete Screen: N/A, Screen Completed (03/25/2016 06:15:Dahiana Tracy RN) Considered Personal Harm/Suicide: No (03/25/2016 06:15:Dahiana Tracy RN) NUTRITIONAL/FUNCTIONAL SCREENING Problem with Appetite >5 Days: No (03/25/2016 06:15:Dahiana Tracy RN) Chew/Swallow Difficulties: No (03/25/2016 06:15:Dahiana Tracy RN) Inappropriate Wt Gain/Loss: No (03/25/2016 06:15:Dahiana Tracy RN) Presence Skin Breakdown/Ulcer: No (03/25/2016 06:15:Dahiana Tracy RN) Special Diet: No (03/25/2016 06:15:Dahiana Tracy RN) Pt Requests Forest Botany Instructor Visit: No (03/25/2016 06:15:Dahiana Tracy RN) Hx of Any of the Following?: N/A (03/25/2016 06:15:Dahiana Tracy RN) New Diagnosis of: N/A (03/25/2016 06:15:Dahiana Tracy RN) Requires Assist w/Ambulation: No (03/25/2016 06:15:Dahiana Tracy RN) Uses Assist Device to Ambulate: No (03/25/2016 06:15:Dahiana Tracy RN) Pt Requires Help w/ADL's: No (03/25/2016 06:15:Dahiana Tracy RN)
--- NOTE | 2016-03-31 06:22 | L&D General Admission ---
General Admit Datetime Report Generated by CPN: 03/31/2016 06:00 INFORMATION Patient Age: 25 (03/09/2016 22:02:QS system process) EDC: 03/27/2016 00:00 (03/09/2016 22:04:Mikayla Carr RN) : 2 (03/09/2016 22:07:Rosamaria Coffman RN) Para: 1 (03/11/2016 14:34:Elida Gonzalez RN) Term: 1 (03/09/2016 22:04:Mikayla Carr RN) : 0 (03/09/2016 22:04:Mikayla Carr RN) Spontaneous Abortions: 0 (03/09/2016 22:04:Mikayla Carr RN) Induced Abortions: 0 (03/09/2016 22:04:Mikayla Carr RN) Livin (03/09/2016 22:04:Mikayla Carr RN) Cesareans: 0 (03/09/2016 22:04:Mikayla Carr RN) VBACs: 0 (03/09/2016 22:04:Mikayla Carr RN) Ectopic: 0 (03/09/2016 22:04:Mikayla Carr RN) Multiple Births: 0 (03/09/2016 22:04:Mikayla Carr RN) Baby, Number in Womb: 1 (03/23/2016 22:49:iMkayla Carr RN) CARE Primary Newspaper Distributor Supervisor: [facility] (03/09/2016 22:07:Rosamaria Coffman RN) Adequate Care: Yes (03/09/2016 22:07:Rosamaria Coffman RN) Height (in): 75 (03/25/2016 05:58:QS system process) ALLERGIES Medication Allergy: No (03/09/2016 22:07:Rosamaria Coffman RN) Medication Allergies: No Known Allergies (03/23/2016) (03/23/2016 21:06:QS system process) Latex Allergy: No Latex Allergies (03/09/2016 22:07:Rosamaria Coffman RN) Food Allergies: NA (03/09/2016 22:07:Rosamaria Coffman RN) Environmental Allergies: NA (03/09/2016 22:07:Rosamaria Coffman RN) COMMUNICATION Primary Language: Sammarinese (03/09/2016 22:07:Rosamaria Coffman RN) Medical Tx Preferred Language: Sammarinese (03/09/2016 22:04:Mikayla Carr RN) Communication Barrier(s): None (03/09/2016 22:04:Mikayla Carr RN) DEMOGRAPHICS Address: [address] [place] [id number] (03/09/2016 22:02:QS system process) Zipcode: [address] (03/09/2016 22:02:QS system process) Home (03/09/2016 22:02:QS system process) SSN: [id number] (03/09/2016 22:02:QS system process) Next of Kin Name: PABLITO BURNHAM (03/11/2016 10:06:QS system process) Next of Kin (03/11/2016 10:06:QS system process) Next of Kin Relationship: SPO (03/11/2016 10:06:QS system process) Date of : 1990 (03/09/2016 22:02:QS system process) Marital Status: (03/09/2016 22:02:QS system process) Sex: Female (03/09/2016 22:02:QS system process) Race: (03/09/2016 22:02:QS system process) Ethnicity: Non- or (03/09/2016 22:02:QS system process) Faith: None (03/09/2016 22:02:QS system process) DRUG AND ALCOHOL USE Alcohol: No (03/09/2016 22:07:Rosamaria Coffman RN) Cigarettes: Never Smoker. 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: [employer] (03/09/2016 22:07:Rosamaria Coffman RN) Feeding Preference: Breast (03/09/2016 22:07:Rosamaria Coffman RN) Benefit of Breast Feed Discussed: Yes (03/09/2016 22:07:Rosamaria Coffman RN) Circumcision: N/A (03/09/2016 22:07:Rosamaria Coffman RN) Classes Attended: No (03/09/2016 22:07:Rosamaria Coffman RN) Tubal Ligation: No (03/09/2016 22:07:Rosamaria Coffman RN) Tubal Authorization Signed: N/A (03/09/2016 22:07:Rosamaria Coffman RN) Consent: N/A (03/09/2016 22:07:Rosamaria Coffman RN) Consent Signed: N/A (03/09/2016 22:07:Rosamaria Coffman RN) Pain Management Plans: Natural (03/09/2016 22:07:Rosamaria Coffman RN) Plans for Labor and Delivery: Plan (03/09/2016 22:07:Rosamaria Coffman RN) Support Person: Pablito Burnham (03/09/2016 22:07:Rosamaria Coffman RN) Support Person Relationship: (03/09/2016 22:07:Rosamaria Coffman RN) Cultural/Spritual Practice: No (03/09/2016 22:07:Rosamaria Coffman RN) Spir/Cult Dietary Needs: No (03/09/2016 22:07:Rosamaria Coffman RN) LIVING SITUATION/DISCHARGE PLAN Living Arrangements: House (03/09/2016 22:07:Rosamaria Coffman RN) Adequate Access to:: Electric; Heat; Refrigeration; Plumbing/Running water; Phone; Transportation (03/09/2016 22:07:Rosamaria Coffman RN) WIC Program: Yes (03/09/2016 22:07:Rosamaria Coffman RN) Discharge Flat Bed Operator Person: Pablito Burnham (03/09/2016 22:07:Rosamaria Coffman RN) Person to Help after Discharge: Pablito Burnham (03/09/2016 22:07:Rosamaria Coffman RN) Currently Using Commun Resources: Yes (03/09/2016 22:07:Rosamaria Coffman RN) Specify Current Resource Used: Medicaid (03/09/2016 22:07:Rosamaria Coffman RN) Outside Agency/Curb Supervisor: Yes (03/09/2016 22:07:Rosamaria Coffman RN) Car Seat for Discharge: Yes (03/09/2016 22:07:Rosamaria Coffman RN) Adoption Requested: No (03/09/2016 22:07:Rosamaria Coffman RN) Pt Contact w/ Post : N/A (03/09/2016 22:07:Rosamaria Coffman RN) LABS Blood Type: B Positive (03/09/2016 22:07:Elida Gonzalez RN) Antibody Screen: neg (03/09/2016 22:07:Elida Gonzalez RN) Hemoglobin: 10.0 L (03/26/2016 07:42:QS system process) Hematocrit: 30.5 L (03/26/2016 07:42:QS system process) MCV: 80 (03/26/2016 07:42:QS system process) Group Beta Strep: neg (03/09/2016 22:07:Elida Gonzalez RN) Gonorrhea: Negative (03/09/2016 22:07:Dahiana Tracy RN) Chlamydia: Negative (03/09/2016 22:07:Dahiana Tracy RN) RPR/VDRL: Nonreactive (03/09/2016 22:07:Elida Gonzalez RN) HIV Exposure Test: Negative (03/09/2016 22:07:Elida Gonzalez RN) HIV Results: non-reactive (03/09/2016 22:07:Cele Gardner RN) Hepatitis B: Negative (03/09/2016 22:07:Cele Gardner RN) Rubella: Immune (Annotations: Data stored by N on behalf of user) (03/09/2016 22:07:Cele Gardner RN) Varicella: Non Susceptible (03/09/2016 22:07:Cele Gardner RN) OB/PREVIOUS HISTORY Previous Procedures: Ultrasound (03/09/2016 22:07:Rosamaria Coffman RN) Current Procedures: Ultrasound; NST (03/09/2016 22:07:Rosamaria Coffman RN) History of Previous : No (03/09/2016 22:07:Rosamaria Coffman RN) History of Gestational Diabetes: No (03/09/2016 22:07:Rosamaria Coffman RN) History of PIH: No (03/09/2016 22:07:Rosamaria Coffman RN) History of Incompetent Cervix: No (03/09/2016 22:07:Rosamaria Coffman RN) History of Placenta Previa/Abrup: No (03/09/2016 22:07:Rosamaria Coffman RN) History of Macrosomia: No (03/09/2016 22:07:Rosamaria Coffman RN) History of IUGR: No (03/09/2016 22:07:Rosamaria Coffman RN) History of Hemorrhage: No (03/09/2016 22:07:Rosamaria Coffman RN) History of Loss/Stillborn: No (03/09/2016 22:07:Rosamaria Coffman RN) History of : No (03/09/2016 22:07:Rosamaria Coffman RN) History of D (Rh) Sensitization: No (03/09/2016 22:07:Rosamaria Coffman RN) History Recurrent Loss/Stillborn: No (03/09/2016 22:07:Rosamaria Coffman RN) History Depression/PP Depression: No (03/09/2016 22:07:Rosamaria Coffman RN) History of Uterine Anomaly/NINA: No (03/09/2016 22:07:Rosamaria Coffman RN) History of Infertility: No (03/09/2016 22:07:Rosamaria Coffman RN) History of ART Treatment: No (03/09/2016 22:07:Rosamaria Coffman RN) History of NINA: No (03/09/2016 22:07:Rosamaria Coffman RN) Comments Obstetrical History: G1: 2008 male 7 lb 14 oz G2: current (03/09/2016 22:07:Dahiana Tracy RN) MEDICAL HISTORY Med Hx Diabetes: No (03/09/2016 22:07:Rosamaria Coffman RN) Med Hx Hypertension: No (03/09/2016 22:07:Rosamaria Coffman RN) Med Hx Heart Disease: No (03/09/2016 22:07:Rosamaria Coffman RN) Med Hx Autoimmune Disorder: No (03/09/2016 22:07:Rosamaria Coffman RN) Med Hx Kidney Disease/UTI: No (03/09/2016 22:07:Rosamaria Coffman RN) Med Hx Neurologic/Epilepsy: No (03/09/2016 22:07:Rosamaria Coffman RN) Med Hx Psychiatric Disorders: No (03/09/2016 22:07:Rosamaria Coffman RN) Med Hx Hepatitis/Liver Disease: No (03/09/2016 22:07:Rosamaria Coffman RN) Med Hx Varicosities/Phlebitis: No (03/09/2016 22:07:Rosamaria Coffman RN) Med Hx Thyroid Dysfunction: No (03/09/2016 22:07:Rosamaria Coffman RN) Med Hx Trauma/Violence: No (03/09/2016 22:07:Rosamaria Coffman RN) Med Hx Blood Transfusion: No (03/09/2016 22:07:Rosamaria Coffman RN) Med Hx Pulmonary (Asthma,TB): No (03/09/2016 22:07:Rosamaria Coffman RN) Med Hx Breast: No (03/09/2016 22:07:Rosamaria Coffman RN) Med Hx CREPE BOX TENDER Surgery: No (03/09/2016 22:07:Rosamaria Coffman RN) Med Hx Hospitalization/Surgery: Yes (03/09/2016 22:07:Dahiana Tracy RN) Med Hx Anesthetic Complications: No (03/09/2016 22:07:Rosamaria Coffman RN) Med Hx Abnormal Pap Smear: Yes (03/09/2016 22:07:Dahiana Tracy RN) Other Medical Diseases: No (03/09/2016 22:07:Rosamaria Coffman RN) Med Hx Significant Family Hx: No (03/09/2016 22:07:Rosamaria Coffman RN) Details of Med/Surg Hx: hospitalization childbirth, hx abn pap? (03/09/2016 22:07:Dahiana Tracy RN) INFECTIOUS HISTORY Inf Hx Gonorrhea: No (03/09/2016 22:07:Rosamaria Coffman RN) Inf Hx Chlamydia: Yes (03/09/2016 22:07:Rosamaria Coffman RN) Inf Hx Syphilis: No (03/09/2016 22:07:Rosamaria Coffman RN) Inf Hx HIV/AIDS: No (03/09/2016 22:07:Rosamaria Coffman RN) Inf Hx Human Papilloma Virus: No (03/09/2016 22:07:Rosamaria Coffman RN) Inf Hx Pt/Partner Genital Herpes: No (03/09/2016 22:07:Rosamaria Coffman RN) Inf Hx Tuberculosis/Exposure: No (03/09/2016 22:07:Rosamaria Coffman RN) Inf Hx Hepatitis B,C: No (03/09/2016 22:07:Rosamaria Coffman RN) Inf Hx Rash or Viral Illness: No (03/09/2016 22:07:Rosamaria Coffman RN) Details of Infectious Hx: 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) and negative GAURI BV in G2 (03/09/2016 22:07:Dahiana Tracy RN) GENETIC HISTORY Gen Hx Age >=35 at SHARON: No (03/09/2016 22:07:Rosamaria Coffman RN) Gen Hx Thalassemia: No (03/09/2016 22:07:Rosamaria Coffman RN) Gen Hx Congenital Heart Defect: No (03/09/2016 22:07:Rosamaria Coffman RN) Gen Hx Neural Tube Defect: No (03/09/2016 22:07:Rosamaria Coffman RN) Gen Hx Down's Syndrome: No (03/09/2016 22:07:Rosamaria Coffman RN) Gen Hx Yobani-Sachs: No (03/09/2016 22:07:Rosamaria Coffman RN) Gen Hx Ghulam: No (03/09/2016 22:07:Rosamaria Coffman RN) Gen Hx Familial Dysautonomia: No (03/09/2016 22:07:Rosamaria Coffman RN) Gen Hx Sickle Cell Disease/Trait: No (03/09/2016 22:07:Rosamaria Coffman RN) Gen Hx Hemophilia/Blood Disorder: No (03/09/2016 22:07:Rosamaria Coffman RN) Gen Hx Muscular Dystrophy: No (03/09/2016 22:07:Rosamaria Coffman RN) Gen Hx Cystic Fibrosis: No (03/09/2016 22:07:Rosamaria Coffman RN) Gen Hx Huntingtons Chorea: No (03/09/2016 22:07:Rosamaria Coffman RN) Gen Hx Mental Retardation/Autism: No (03/09/2016 22:07:Rosamaria Coffman RN) Gen Hx Tested for Fragile X: No (03/09/2016 22:07:Rosamaria Coffman RN) Gen Hx Other Inher/Chromosomal: No (03/09/2016 22:07:Rosamaria Coffman RN) Gen Hx Maternal Metabolic DO: No (03/09/2016 22:07:Rosamaria Coffman RN) Gen Hx Pt Father or FOB Defect: No (03/09/2016 22:07:Rosamaria Coffman RN) Gen Hx Other Genetic History: No (03/09/2016 22:07:Rosamaria Coffman RN) Gen Hx Drugs/Meds since LMP: Yes (03/09/2016 22:07:Dahiana Tracy RN) Gen Hx Medications: , iron, abx for chlam treatment (03/09/2016 22:07:Dahiana Tracy RN)
--- NOTE | 2016-04-01 06:22 | L&D Current Admission ---
Current Admit Datetime Report Generated by CPN: 04/01/2016 06:00 ADMISSION INFORMATION Reason for Admission: Rupture of Membranes (03/25/2016 06:15:Dahiana Tracy RN) Chief Complaint: Suspected Rupture of Membranes (03/25/2016 06:15:Dahiana Tracy RN) Medications During : Ferrous Sulfate (Iron); Vitamin (03/25/2016 06:15:Dahiana Tracy RN) Method of Arrival: Wheelchair (03/25/2016 06:15:Dahiana Tracy RN) Reason for Induction: Not Applicable (03/25/2016 06:15:Dahiana Tracy RN) Records Available: Yes (03/25/2016 06:15:Dahiana Tracy RN) General Admission Information: Reviewed; Updated; Confirmed (03/25/2016 06:15:Dahiana Tracy RN) General Admission Reviewed By: Prakash Tracy RN (03/25/2016 06:15:Dahiana Tracy RN) BELONGINGS/ADVANCED DIRECTIVES Other Belongings: see [facility] belongings form (03/25/2016 06:15:Dahiana Tracy RN) Advance Direct for Healthcare: No, but Requests Information (03/25/2016 06:15:Dahiana Tracy RN) Durable Power of Chief Operator Hydroformer: No (03/25/2016 06:15:Dahiana Tracy RN) Living Will: No (03/25/2016 06:15:Dahiana Tracy RN) Organ Donor: Yes (03/25/2016 06:15:Dahiana Tracy RN) Pt Rights Information Given: Yes (03/25/2016 06:15:Dahiana Trcay RN) Pt Understands Pt Rights: No (03/25/2016 06:15:Dahiana Tracy RN) LEARNING ASSESSMENT Knowledge Level: Understands L_D Process; Understands Diagnosis (03/25/2016 06:15:Dahiana Tracy RN) Barriers to Learning: Emotional State; Pain (03/25/2016 06:15:Dahiana Tracy RN) Learning Readiness: Motivated (03/25/2016 06:15:Dahiana Tracy RN) Learns Best By: 1 to 1 Instruction (03/25/2016 06:15:Dahiana Tracy RN) Learning Needs: Labor and Delivery Process; Pain Management; Symptoms to Report; Treatment Plan; Medication; Diagnosis; Equipment (03/25/2016 06:15:Dahiana Tracy RN) DOMESTIC VIOLANCE SCREENING Dom Viol Threatened/Hurt: No (03/25/2016 06:15:Dahiana Tracy RN) Hx of Abuse/Neglect past 2yrs: No (03/25/2016 06:15:Dahiana Tracy RN) Feel Unsafe Going Home: No (03/25/2016 06:15:Dahiana Tracy RN) Addt'l Observ Indicating Abuse: No (03/25/2016 06:15:Dahiana Tracy RN) Reason Unable to Complete Screen: N/A, Screen Completed (03/25/2016 06:15:Dahiana Tracy RN) Considered Personal Harm/Suicide: No (03/25/2016 06:15:Dahiana Tracy RN) NUTRITIONAL/FUNCTIONAL SCREENING Problem with Appetite >5 Days: No (03/25/2016 06:15:Dahiana Tracy RN) Chew/Swallow Difficulties: No (03/25/2016 06:15:Dahiana Tracy RN) Inappropriate Wt Gain/Loss: No (03/25/2016 06:15:Dahiana Tracy RN) Presence Skin Breakdown/Ulcer: No (03/25/2016 06:15:Dahiana Tracy RN) Special Diet: No (03/25/2016 06:15:Dahiana Tracy RN) Pt Requests Ceramics Instructor Visit: No (03/25/2016 06:15:Dahiana Tracy RN) Hx of Any of the Following?: N/A (03/25/2016 06:15:Dahiana Tracy RN) New Diagnosis of: N/A (03/25/2016 06:15:Dahiana Tracy RN) Requires Assist w/Ambulation: No (03/25/2016 06:15:Dahiana Tracy RN) Uses Assist Device to Ambulate: No (03/25/2016 06:15:Dahiana Tracy RN) Pt Requires Help w/ADL's: No (03/25/2016 06:15:Dahiana Tracy RN)
--- NOTE | 2016-04-01 06:22 | L&D General Admission ---
General Admit Datetime Report Generated by CPN: 04/01/2016 06:00 INFORMATION Patient Age: 25 (03/09/2016 22:02:QS system process) EDC: 03/27/2016 00:00 (03/09/2016 22:04:Mikayla Carr RN) : 2 (03/09/2016 22:07:Rosamaria Coffman RN) Para: 1 (03/11/2016 14:34:Elida Gonzalez RN) Term: 1 (03/09/2016 22:04:Mikayla Carr RN) : 0 (03/09/2016 22:04:Mikayla Carr RN) Spontaneous Abortions: 0 (03/09/2016 22:04:Mikayla Carr RN) Induced Abortions: 0 (03/09/2016 22:04:Mikayla Carr RN) Livin (03/09/2016 22:04:Mikayla Carr RN) Cesareans: 0 (03/09/2016 22:04:Mikayla Carr RN) VBACs: 0 (03/09/2016 22:04:Mikayla Carr RN) Ectopic: 0 (03/09/2016 22:04:Mikayla Carr RN) Multiple Births: 0 (03/09/2016 22:04:Mikayla Carr RN) Baby, Number in Womb: 1 (03/23/2016 22:49:Mikayla Carr RN) CARE 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: [facility] (03/09/2016 22:07:Rosamaria Coffman RN) Adequate Care: Yes (03/09/2016 22:07:Rosamaria Coffman RN) Height (in): 75 (03/25/2016 05:58:QS system process) ALLERGIES Medication Allergy: No (03/09/2016 22:07:Rosamaria Coffman RN) Medication Allergies: No Known Allergies (03/23/2016) (03/23/2016 21:06:QS system process) Latex Allergy: No Latex Allergies (03/09/2016 22:07:Rosamaria Coffman RN) Food Allergies: NA (03/09/2016 22:07:Rosamaria Coffman RN) Environmental Allergies: NA (03/09/2016 22:07:Rosamaria Coffman RN) COMMUNICATION Primary Language: Citizen [place] (03/09/2016 22:07:Rosamaria Coffman RN) Medical Tx Preferred Language: Citizen [place] (03/09/2016 22:04:Mikayla Carr RN) Communication Barrier(s): None (03/09/2016 22:04:Mikayla Carr RN) DEMOGRAPHICS Address: [address] [place] [id number] (03/09/2016 22:02:QS system process) Zipcode: [address] (03/09/2016 22:02:QS system process) Home (03/09/2016 22:02:QS system process) SSN: [id number] (03/09/2016 22:02:QS system process) Next of Kin Name: PABLITO BURNHAM (03/11/2016 10:06:QS system process) Next of Kin (03/11/2016 10:06:QS system process) Next of Kin Relationship: SPO (03/11/2016 10:06:QS system process) Date of : 1990 (03/09/2016 22:02:QS system process) Marital Status: (03/09/2016 22:02:QS system process) Sex: Female (03/09/2016 22:02:QS system process) Race: (03/09/2016 22:02:QS system process) Ethnicity: Non- or (03/09/2016 22:02:QS system process) Mandaen: None (03/09/2016 22:02:QS system process) DRUG AND ALCOHOL USE Alcohol: No (03/09/2016 22:07:Rosamaria Coffman RN) Cigarettes: Never Smoker. 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: [facility] (03/09/2016 22:07:Rosamaria Coffman RN) Feeding Preference: Breast (03/09/2016 22:07:Rosamaria Coffman RN) Benefit of Breast Feed Discussed: Yes (03/09/2016 22:07:Rosamaria Coffman RN) Circumcision: N/A (03/09/2016 22:07:Rosamaria Coffman RN) Classes Attended: No (03/09/2016 22:07:Rosamaria Coffman RN) Tubal Ligation: No (03/09/2016 22:07:Rsoamaria Coffman RN) Tubal Authorization Signed: N/A (03/09/2016 22:07:Rosamaria Coffman RN) Consent: N/A (03/09/2016 22:07:Rosamaria Coffman RN) Consent Signed: N/A (03/09/2016 22:07:Rosamaria Coffman RN) Pain Management Plans: Natural (03/09/2016 22:07:Rosamaria Coffman RN) Plans for Labor and Delivery: Plan (03/09/2016 22:07:Rosamaria Coffman RN) Support Person: Pablito Burnham (03/09/2016 22:07:Rosamaria Coffman RN) Support Person Relationship: (03/09/2016 22:07:Rosamaria Coffman RN) Cultural/Spritual Practice: No (03/09/2016 22:07:Rosamaria Coffman RN) Spir/Cult Dietary Needs: No (03/09/2016 22:07:Rosamaria Coffman RN) LIVING SITUATION/DISCHARGE PLAN Living Arrangements: House (03/09/2016 22:07:Rosamaria Coffman RN) Adequate Access to:: Electric; Heat; Refrigeration; Plumbing/Running water; Phone; Transportation (03/09/2016 22:07:Rosamaria Coffman RN) WIC Program: Yes (03/09/2016 22:07:Rosamaria Coffman RN) 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 Person: Pablito Burnham (03/09/2016 22:07:Rosamaria Coffman RN) Person to Help after Discharge: Pablito Burnham (03/09/2016 22:07:Rosamaria Coffman RN) Currently Using Commun Resources: Yes (03/09/2016 22:07:Rosamaria Coffman RN) Specify Current Resource Used: Medicaid (03/09/2016 22:07:Rosamaria Coffman RN) Outside Agency/Tool Engineer: Yes (03/09/2016 22:07:Rosamaria Coffman RN) Car Seat for Discharge: Yes (03/09/2016 22:07:Rosamaria Coffman RN) Adoption Requested: No (03/09/2016 22:07:Rosamaria Coffman RN) Pt Contact w/ Post : N/A (03/09/2016 22:07:Rosamaria Coffman RN) LABS Blood Type: B Positive (03/09/2016 22:07:Elida Gonzalez RN) Antibody Screen: neg (03/09/2016 22:07:Elida Gonzalez RN) Hemoglobin: 10.0 L (03/26/2016 07:42:QS system process) Hematocrit: 30.5 L (03/26/2016 07:42:QS system process) MCV: 80 (03/26/2016 07:42:QS system process) Group Beta Strep: neg (03/09/2016 22:07:Elida Gonzalez RN) Gonorrhea: Negative (03/09/2016 22:07:Dahiana Tracy RN) Chlamydia: Negative (03/09/2016 22:07:Dahiana Tracy RN) RPR/VDRL: Nonreactive (03/09/2016 22:07:Elida Gonzalez RN) HIV Exposure Test: Negative (03/09/2016 22:07:Elida Gonzalez RN) HIV Results: non-reactive (03/09/2016 22:07:Cele Gardner RN) Hepatitis B: Negative (03/09/2016 22:07:Cele Gardner RN) Rubella: Immune (Annotations: Data stored by N on behalf of user) (03/09/2016 22:07:Cele Gardner RN) Varicella: Non Susceptible (03/09/2016 22:07:Cele Gardner RN) OB/PREVIOUS HISTORY Previous Procedures: Ultrasound (03/09/2016 22:07:Rosamaria Coffman RN) Current Procedures: Ultrasound; NST (03/09/2016 22:07:Rosamaria Coffman RN) History of Previous : No (03/09/2016 22:07:Rosamaria Coffman RN) History of Gestational Diabetes: No (03/09/2016 22:07:Rosamaria Coffman RN) History of PIH: No (03/09/2016 22:07:Rosamaria Coffman RN) History of Incompetent Cervix: No (03/09/2016 22:07:Rosamaria Coffman RN) History of Placenta Previa/Abrup: No (03/09/2016 22:07:Rosamaria Coffman RN) History of Macrosomia: No (03/09/2016 22:07:Rosamaria Coffman RN) History of IUGR: No (03/09/2016 22:07:Rosamaria Coffman RN) History of Hemorrhage: No (03/09/2016 22:07:Rosamaria Coffman RN) History of Loss/Stillborn: No (03/09/2016 22:07:Rosamaria Coffman RN) History of : No (03/09/2016 22:07:Rosamaria Coffman RN) History of D (Rh) Sensitization: No (03/09/2016 22:07:Rosamaria Coffman RN) History Recurrent Loss/Stillborn: No (03/09/2016 22:07:Rosamaria Coffman RN) History Depression/PP Depression: No (03/09/2016 22:07:Rosamaria Coffman RN) History of Uterine Anomaly/NINA: No (03/09/2016 22:07:Rosamaria Coffman RN) History of Infertility: No (03/09/2016 22:07:Rosamaria Coffman RN) History of ART Treatment: No (03/09/2016 22:07:Rosamaria Coffman RN) History of NINA: No (03/09/2016 22:07:Rosamaria Coffman RN) Comments Obstetrical History: G1: 2008 male 7 lb 14 oz G2: current (03/09/2016 22:07:Dahiana Tracy RN) MEDICAL HISTORY Med Hx Diabetes: No (03/09/2016 22:07:Rosamaria Coffman RN) Med Hx Hypertension: No (03/09/2016 22:07:Rosamaria Coffman RN) Med Hx Heart Disease: No (03/09/2016 22:07:Rosamaria Coffman RN) Med Hx Autoimmune Disorder: No (03/09/2016 22:07:Rosamaria Coffman RN) Med Hx Kidney Disease/UTI: No (03/09/2016 22:07:Rosamaria Coffman RN) Med Hx Neurologic/Epilepsy: No (03/09/2016 22:07:Rosamaria Coffman RN) Med Hx Psychiatric Disorders: No (03/09/2016 22:07:Rosamaria Coffman RN) Med Hx Hepatitis/Liver Disease: No (03/09/2016 22:07:Rosamaria Coffman RN) Med Hx Varicosities/Phlebitis: No (03/09/2016 22:07:Rosamaria Coffman RN) Med Hx Thyroid Dysfunction: No (03/09/2016 22:07:Rosamaria Coffman RN) Med Hx Trauma/Violence: No (03/09/2016 22:07:Rosamaria Coffman RN) Med Hx Blood Transfusion: No (03/09/2016 22:07:Rosamaria Coffman RN) Med Hx Pulmonary (Asthma,TB): No (03/09/2016 22:07:Rosamaria Coffman RN) Med Hx Breast: No (03/09/2016 22:07:Rosamaria Coffman RN) Med Hx PARCEL POST WEIGHER Surgery: No (03/09/2016 22:07:Rosamaria Coffman RN) Med Hx Hospitalization/Surgery: Yes (03/09/2016 22:07:Dahiana Tracy RN) Med Hx Anesthetic Complications: No (03/09/2016 22:07:Rosamaria Coffman RN) Med Hx Abnormal Pap Smear: Yes (03/09/2016 22:07:Dahiana Tracy RN) Other Medical Diseases: No (03/09/2016 22:07:Rosamaria Coffman RN) Med Hx Significant Family Hx: No (03/09/2016 22:07:Rosamaria Coffman RN) Details of Med/Surg Hx: hospitalization childbirth, hx abn pap? (03/09/2016 22:07:Dahiana Tracy RN) INFECTIOUS HISTORY Inf Hx Gonorrhea: No (03/09/2016 22:07:Rosamaria Coffman RN) Inf Hx Chlamydia: Yes (03/09/2016 22:07:Rosamaria Coffman RN) Inf Hx Syphilis: No (03/09/2016 22:07:Rosamaria Coffman RN) Inf Hx HIV/AIDS: No (03/09/2016 22:07:Rosamaria Coffman RN) Inf Hx Human Papilloma Virus: No (03/09/2016 22:07:Rosamaria Coffman RN) Inf Hx Pt/Partner Genital Herpes: No (03/09/2016 22:07:Rosamaria Coffman RN) Inf Hx Tuberculosis/Exposure: No (03/09/2016 22:07:Rosamaria Coffman RN) Inf Hx Hepatitis B,C: No (03/09/2016 22:07:Rosamaria Coffman RN) Inf Hx Rash or Viral Illness: No (03/09/2016 22:07:Rosamaria Coffman RN) Details of Infectious Hx: 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) and negative GAURI BV in G2 (03/09/2016 22:07:Dahiana Tracy RN) GENETIC HISTORY Gen Hx Age >=35 at SHARON: No (03/09/2016 22:07:Rosamaria Coffman RN) Gen Hx Thalassemia: No (03/09/2016 22:07:Rosamaria Coffman RN) Gen Hx Congenital Heart Defect: No (03/09/2016 22:07:Rosamaria Coffman RN) Gen Hx Neural Tube Defect: No (03/09/2016 22:07:Rosamaria Coffman RN) Gen Hx Down's Syndrome: No (03/09/2016 22:07:Rosamaria Coffman RN) Gen Hx Yobani-Sachs: No (03/09/2016 22:07:Rosamaria Coffman RN) Gen Hx Ghulam: No (03/09/2016 22:07:Rosamaria Coffman RN) Gen Hx Familial Dysautonomia: No (03/09/2016 22:07:Rosamaria Coffman RN) Gen Hx Sickle Cell Disease/Trait: No (03/09/2016 22:07:Rosamaria Coffman RN) Gen Hx Hemophilia/Blood Disorder: No (03/09/2016 22:07:Rosamaria Coffman RN) Gen Hx Muscular Dystrophy: No (03/09/2016 22:07:Rosamaria Coffman RN) Gen Hx Cystic Fibrosis: No (03/09/2016 22:07:Rosamaria Coffman RN) Gen Hx Huntingtons Chorea: No (03/09/2016 22:07:Rosamaria Coffman RN) Gen Hx Mental Retardation/Autism: No (03/09/2016 22:07:Rosamaria Coffman RN) Gen Hx Tested for Fragile X: No (03/09/2016 22:07:Rosamaria Coffman RN) Gen Hx Other Inher/Chromosomal: No (03/09/2016 22:07:Rosamaria Coffman RN) Gen Hx Maternal Metabolic DO: No (03/09/2016 22:07:Rosamaria Coffman RN) Gen Hx Pt Father or FOB Defect: No (03/09/2016 22:07:Rosamaria Coffman RN) Gen Hx Other Genetic History: No (03/09/2016 22:07:Rosamaria Coffman RN) Gen Hx Drugs/Meds since LMP: Yes (03/09/2016 22:07:Dahiana Tracy RN) Gen Hx Medications: , iron, abx for chlam treatment (03/09/2016 22:07:Dahiana Tracy RN)
== END 2016-03-27 11:42 | disposition home or self-care (01) | DRG 775 ==
LOC: LC 05:44 → LR 05:55 → 2S 15:40
PROVIDERS: ADMIT Student in an Organized Health Care Education/Training Program; ATTEND Student in an Organized Health Care Education/Training Program
PROC: 10E0XZZ Delivery of Products of Conception, External Approach (ICD-10-PCS; principal; 2016-03-25)
PROC: 4A1HXCZ Monitoring of Products of Conception, Cardiac Rate, External Approach (ICD-10-PCS; 2016-03-25)
PROC: 3E0234Z Introduction of Serum, Toxoid and Vaccine into Muscle, Percutaneous Approach (ICD-10-PCS; 2016-03-27)
DX: O69.81X0 Labor and delivery complicated by cord around neck, without compression, not applicable or unspecified (principal); Z3A.39 39 weeks gestation of pregnancy; Z37.0 Single live birth; Z23 Encounter for immunization
CPT/HCPCS: 36415; 80307; 81005; 85025; 85027; 86592; 86850; 86900; 86901; 90715; J2590; J3490